=== PATIENT | male | born 1940 | race Caucasian/White ===

== ENCOUNTER 2018-07-06 10:33 | Inpatient (IN) ==
--- NOTE | 2018-07-06 11:04 | Emergency Department Note ---
Disposition Clinical Impression: Afib, Chest pain, Metastatic melanoma, History of DVT (deep vein thrombosis), Anemia, Elevated INR, Frail elderly Disposition: Admitted As Inpatient General Adult HPI - General Chief complaint: ED Chest Pain Stated complaint: Chest pain/GT Time Seen by Provider: 07/06/18 11:02 Source: patient, family - History of Present Illness HPI Narrative: 77-year-old male with history of atrial fibrillation currently anticoagulated on Coumadin reports emergency department complaining of chest pain. The patient reports back aching and aching in his bones in general. He states he has a history of melanoma and is being treated for that. The patient denies any coughing of blood like swelling or pain or syncope. He has no history of CHF or CAD. There is no history of prior aneurysm. He denies abdominal pain vomiting diarrhea or other acute complaints or concerns. There is no history of bleeding. There is no history of headache or confusion. No falls or injuries. The patient does not have a pacemaker or defibrillator in place. Pain Scale: 10 - Related Data Home Medications Medication Instructions Recorded Confirmed Allopurinol [Zyloprim 300 MG] 300 mg PO DAILY 05/04/18 07/05/18 Atorvastatin [Lipitor] 20 mg PO DAILY 05/04/18 07/05/18 Budesonide/Formoterol 80/4.5 2 puff IH BID PRN 05/04/18 07/05/18 [Symbicort 80/4.5] Digoxin [Lanoxin] 0.125 mg PO DAILY 05/04/18 07/05/18 Diltiazem CD (24hr) [Cardizem CD] 240 mg PO DAILY 05/04/18 07/05/18 Finasteride [Proscar] 5 mg PO DAILY 05/04/18 07/05/18 Ipratropium/Albuterol Neb [Duoneb] 3 ml IH QID PRN 05/04/18 07/05/18 Multivit-Min/FA/Lycopen/Lutein 1 tab PO DAILY 05/04/18 07/05/18 [Centrum Silver Tablet] Omeprazole [PriLOSEC] 20 mg PO DAILY 05/04/18 07/05/18 Saw [place] 160 mg PO BID 05/04/18 07/05/18 Tamsulosin [Flomax] 0.4 mg PO DAILY 05/04/18 07/05/18 Warfarin [Coumadin] 6 mg PO AD 05/04/18 07/05/18 Ferrous Sulfate [High Potency Iron] 27 mg PO DAILY 05/05/18 07/05/18 Ketoconazole 2% CRM [Nizoral Cream] 1 appl TP BID PRN 05/05/18 07/05/18 Metoprolol Tartrate 50 mg PO BID 05/05/18 07/05/18 Potassium Chloride [K-Tab ER] 20 meq PO Q48H 05/05/18 07/05/18 Previous Rx's Medication Instructions Recorded Mirtazapine [Remeron] 15 mg PO HS #30 tablet 06/08/18 Guaifenesin [Mucinex] 600 mg PO BID #20 tab.er.12h 06/14/18 Hydrocortisone 2.5% CREAM [Cortaid] 1 appl TP BID #1 tube 06/14/18 Allergies Allergy/AdvReac Type Severity Reaction Status Date / Time tape AdvReac Rash Uncoded 07/06/18 10:52 All systems ED: reviewed and negative except as stated. Past Medical History - Past Medical History Medical history: Reports: atrial fibrillation, cancer, DVT, hypertension Psychiatric history: Reports: no psych history - Social History Smoking Status: Former smoker Smokeless Tobacco Status: No Alcohol use: Reports: heavy, recent Drug use: Reports: none Physical Exam - General Limitations: no limitations General appearance: alert, in no apparent distress - Head Head exam: atraumatic, normocephalic, normal inspection - Eye Eye exam: Present: normal appearance, PERRL, EOMI - ENT ENT exam: normal exam, normal oropharynx, mucous membranes moist - Neck Neck exam: Present: normal inspection, full ROM, trachea midline - Chest Chest inspection: Present: normal inspection. Absent: symmetric chest wall rise - Respiratory Respiratory exam: Present: normal lung sounds bilaterally, respiratory distress. Absent: prolonged expiratory phase - Cardiovascular Cardiovascular exam: Present: tachycardia, irregular rhythm - Abdominal Exam Abdominal exam: Present: soft, Non-Tender, normal bowel sounds. Absent: tenderness, distention, guarding, rebound, rigidity - Extremities Exam Extremities exam: Present: normal inspection, full ROM, normal capillary refill. Absent: tenderness, pedal edema, joint swelling, calf tenderness - Expanded Lower Extremity Exam Neurovascular/Tendon exam: Present: normal capillary refill. Absent: motor deficit, sensory deficit, tendon deficit, extremity cold to touch, pallor - Back Exam Back exam: Present: normal inspection, full ROM. Absent: tenderness, CVA tenderness (R), CVA tenderness (L), vertebral tenderness - Neurological Exam Neurological exam: Present: alert, oriented X3, CN II-XII intact. Absent: motor sensory deficit - Psychiatric Psychiatric exam: Present: normal affect, normal mood - Skin Skin exam: Present: warm, dry, intact, normal color Course Vital Signs Temperature 98.5 F 07/06/18 10:54 Pulse Rate 127 07/06/18 10:54 Respiratory Rate 22 07/06/18 10:54 Blood Pressure 123/64 07/06/18 10:54 O2 Sat by Pulse Oximetry 99 07/06/18 10:54 Temperature 98.5 F 07/06/18 10:54 Pulse Rate 121 07/06/18 12:21 Respiratory Rate 18 07/06/18 13:49 Blood Pressure 150/82 07/06/18 13:49 O2 Sat by Pulse Oximetry 98 07/06/18 12:21 Oxygen Delivery Oxygen Delivery Nasal Cannula Medical Decision Making - [facility] Narrative Medical decision making narrative: The patient presented to emergency department describing chest discomfort and general aching, he has known history of metastatic melanoma, he is anticoagulated secondary to chronic atrial fibrillation. In emergency department his EKG showed atrial fibrillation with RVR. Troponin negative. Chest x-ray shows worsening metastatic disease. INR 2.3. IV fluid and Cardizem bolus given, the patient's heart rate did come down into the 104 range but then bounced back into the 130s, a Cardizem drip was ordered. Based on the patient's persistent tachycardia, known tachydysrhythmia/AF, multiple comorbidities including metastatic melanoma with worsening chest disease and complaints of pain, I thought it would be appropriate to admit the patient hospital. He patient was given fentanyl emergency department. He appears to be stable. White blood cell count slightly elevated with tachycardia, no clear source for infection noted, as a precaution lactic acid and blood cultures were ordered. He is agreeable to admission. I discussed the case with the hospitalist on-call who has accepted the patient to their care. - Lab Data Lab results reviewed: Yes I reviewed the patient's lab results. Result diagrams: 07/06/18 11:06 07/06/18 11:06 Lab Results 07/06/18 07/06/18 07/06/18 Range/Units 11:06 11:06 11:06 WBC 12.3 H D (4.3-11.1) K/mcL RBC 3.20 L (4.19-5.50) M/mcL Hgb 9.5 L (12.9-16.9) g/dL Hct 29.4 L (37.5-50.1) % MCV 91.9 (83.0-100.0) fL MCH 29.7 (28.0-33.3) pg MCHC 32.3 (31.6-35.5) g/dL RDW 14.7 H (11.5-14.5) % Plt Count 304 (140-400) K/mcL MPV 9.7 (9.4-12.4) fL Immature Gran % 0.7 (0-4) % Seg Neutrophils % 70.9 % Lymphocytes % 16.9 % Monocytes % 9.1 % Eosinophils % 2.0 % Basophils % 0.4 % Neutrophils # 8.7 (1.6-8.9) K/mcL Lymphocytes # 2.1 (0.6-4.6) K/mcL Monocytes # 1.1 (0.0-1.3) K/mcL Eosinophils # 0.3 (0.0-0.6) K/mcL Basophils # 0.1 (0.0-0.2) K/mcL Nucleated RBCs/100 WBC 0.2 H (0) /100 WBC PT 25.6 H (9.4-12.1) Seconds INR 2.3 APTT 34.6 (26.0-36.0) Seconds Sodium 138 (136-145) mEq/L Potassium 4.6 (3.5-5.1) mEq/L Chloride 103 (98-107) mEq/L Carbon Dioxide 27 (23-29) mEq/L BUN 43 H (8-23) mg/dL Creatinine 0.77 (0.70-1.30) mg/dL Est GFR ( Amer) > 60 (> 60) Est GFR (Non-Af Amer) > 60 (> 60) BUN/Creatinine Ratio 56 H (6-26) Glucose 116 H (70-105) mg/dL Calculated Osmolality 298 (280-300) Calcium 8.8 (8.6-10.3) mg/dL Total Bilirubin 0.6 (0.3-1.0) mg/dL Direct Bilirubin 0.2 (0.0-0.2) mg/dL Indirect Bilirubin 0.4 (0.0-1.2) mg/dL AST 22 (13-39) Units/L ALT 17 (7-52) Units/L Alkaline Phosphatase 153 H (34-104) Units/L Troponin I < 0.03 (< 0.04) ng/mL B-Natriuretic Peptide (Less than 100) pg/mL Serum Total Protein 5.9 L (6.4-8.9) g/dL Albumin 3.3 L (3.5-5.7) g/dL Globulin 2.6 (2.4-3.5) g/dL Albumin/Globulin Ratio 1.3 (1.1-2.2) Lipase 12 (11-82) Units/L 05/15/19 Range/Units 11:06 WBC (4.3-11.1) K/mcL RBC (4.19-5.50) M/mcL Hgb (12.9-16.9) g/dL Hct (37.5-50.1) % MCV (83.0-100.0) fL MCH (28.0-33.3) pg MCHC (31.6-35.5) g/dL RDW (11.5-14.5) % Plt Count (140-400) K/mcL MPV (9.4-12.4) fL Immature Gran % (0-4) % Seg Neutrophils % % Lymphocytes % % Monocytes % % Eosinophils % % Basophils % % Neutrophils # (1.6-8.9) K/mcL Lymphocytes # (0.6-4.6) K/mcL Monocytes # (0.0-1.3) K/mcL Eosinophils # (0.0-0.6) K/mcL Basophils # (0.0-0.2) K/mcL Nucleated RBCs/100 WBC (0) /100 WBC PT (9.4-12.1) Seconds INR APTT (26.0-36.0) Seconds Sodium (136-145) mEq/L Potassium (3.5-5.1) mEq/L Chloride (98-107) mEq/L Carbon Dioxide (23-29) mEq/L BUN (8-23) mg/dL Creatinine (0.70-1.30) mg/dL Est GFR ( Amer) (> 60) Est GFR (Non-Af Amer) (> 60) BUN/Creatinine Ratio (6-26) Glucose (70-105) mg/dL Calculated Osmolality (280-300) Calcium (8.6-10.3) mg/dL Total Bilirubin (0.3-1.0) mg/dL Direct Bilirubin (0.0-0.2) mg/dL Indirect Bilirubin (0.0-1.2) mg/dL AST (13-39) Units/L ALT (7-52) Units/L Alkaline Phosphatase (34-104) Units/L Troponin I (< 0.04) ng/mL B-Natriuretic Peptide 158 H (Less than 100) pg/mL Serum Total Protein (6.4-8.9) g/dL Albumin (3.5-5.7) g/dL Globulin (2.4-3.5) g/dL Albumin/Globulin Ratio (1.1-2.2) Lipase (11-82) Units/L - Radiology Data Radiology results reviewed: Yes I reviewed the patient's radiology results.
[2018-07-06 11:31] LABS: Basophils # 0.1 K/mcL (0.0-0.2); Basophils % 0.4 %; Eosinophils # 0.3 K/mcL (0.0-0.6); Hematocrit 29.4 % (37.5-50.1); Hemoglobin 9.5 g/dL (12.9-16.9); Immature Granulocytes % 0.7 % (0-4); Lymphocytes # 2.1 K/mcL (0.6-4.6); Lymphocytes % 16.9 %; Mean Corpuscular HGB Conc 32.3 g/dL (31.6-35.5); Mean Corpuscular Hemoglobin 29.7 pg (28.0-33.3); Mean Corpuscular Volume 91.9 fL (83.0-100.0); Mean Platelet Volume 9.7 fL (9.4-12.4); Monocytes # 1.1 K/mcL (0.0-1.3); Monocytes % 9.1 %; Neutrophils # 8.7 K/mcL (1.6-8.9); Nucleated Red Blood Cells 0.2 /100 WBC (0); Platelet Count 304 K/mcL (140-400); Red Cell Distribution Width 14.7 % (11.5-14.5); Segmented Neutrophils % 70.9 %
[2018-07-06] MEDS ORDERED: *HR* FentaNYL (PF) 100 MCG/2 ML VIAL IVP ONE (11:35)
[2018-07-06 11:38] LABS: INR 2.3; Prothrombin Time 25.6 Seconds (9.4-12.1)
[2018-07-06 11:40] LABS: Activated Partial Thrombo Time 34.6 Seconds (26.0-36.0)
[2018-07-06 11:44] LABS: Alanine Aminotransferase 17 Units/L (7-52); Albumin 3.3 g/dL (3.5-5.7); Albumin/Globulin Ratio 1.3 (1.1-2.2); Alkaline Phosphatase 153 Units/L (34-104); Aspartate Amino Transferase 22 Units/L (13-39); BUN/Creatinine Ratio 56 (6-26); Bilirubin,Direct 0.2 mg/dL (0.0-0.2); Bilirubin,Indirect 0.4 mg/dL (0.0-1.2); Bilirubin,Total 0.6 mg/dL (0.3-1.0); Blood Urea Nitrogen 43 mg/dL (8-23); Calcium 8.8 mg/dL (8.6-10.3); Carbon Dioxide 27 mEq/L (23-29); Chloride 103 mEq/L (98-107); Globulin 2.6 g/dL (2.4-3.5); Glucose 116 mg/dL (70-105); Lipase 12 Units/L (11-82); Osmolality,Calculated 298 (280-300); Potassium 4.6 mEq/L (3.5-5.1); Sodium 138 mEq/L (136-145); Total Protein 5.9 g/dL (6.4-8.9); Troponin I < 0.03 ng/mL (< 0.04); eGFR For Non-African Americans > 60 (> 60)
--- NOTE | 2018-07-06 13:01 | Electrocardiograph Report ---
Mobile Cursogram Test Date: 2018-07-06 Pat Name: Brad Drake Department: [id number] Room: Gender: M Chief Steward/Stewardess: : 1940 Requested By: Cooper Pineda Order Number: [id number] Reading MD: Tyler Rowley Measurements Intervals [place] Rate: 149 P: [place]: QRS: 72 QRSD: 82 T: 65 QT: 282 QTc: 444 Interpretive Statements Atrial fibrillation with rapid V-rate Probable anteroseptal infarct, old ST depression, probably rate related Electronically Signed On 07-06-2018 13:00:40 EDT by Tyler Rowley
[2018-07-06] MEDS ORDERED: Aspirin 325 MG TABLET PO ONE (13:05)
[2018-07-06] MEDS ORDERED: Naloxone 0.4 MG/ML INJ IVP PRN (15:25)
[2018-07-06 15:42] LABS: C-Reactive Protein 48 mg/L (Less than 10)
--- NOTE | 2018-07-06 16:01 | Oncology Inp Consult Note ---
<Concha Michel S - Last Filed: 07/06/18 17:34> Date of Encounter: 07/06/18 - Data of Consult Requesting Physician: Janessa Mims Primary Care Provider: Shaila Ayon MD Medications and Allergies RX: Allopurinol [Zyloprim 300 MG] 300 mg PO DAILY 05/04/18 [History] RX: Atorvastatin [Lipitor] 20 mg PO DAILY 05/04/18 [History] RX: Budesonide/Formoterol 80/4.5 [Symbicort 80/4.5] 2 puff IH BID PRN 05/04/18 [History] RX: Digoxin [Lanoxin] 0.125 mg PO DAILY 05/04/18 [History] RX: Diltiazem CD (24hr) [Cardizem CD] 240 mg PO DAILY 05/04/18 [History] RX: Finasteride [Proscar] 5 mg PO DAILY 05/04/18 [History] RX: Ipratropium/Albuterol Neb [Duoneb] 3 ml IH Q6H 05/04/18 [History] RX: Multivit-Min/FA/Lycopen/Lutein [Centrum Silver Tablet] 1 tab PO DAILY 05/04/18 [History] RX: Omeprazole [PriLOSEC] 20 mg PO DAILY 05/04/18 [History] RX: Saw [place] 160 mg PO BID 05/04/18 [History] RX: Tamsulosin [Flomax] 0.4 mg PO DAILY 05/04/18 [History] RX: Warfarin [Coumadin] 6 mg PO DAILY 05/04/18 [History] RX: Ferrous Sulfate [High Potency Iron] 27 mg PO DAILY 05/05/18 [History] RX: Metoprolol Tartrate 50 mg PO BID 05/05/18 [History] RX: Potassium Chloride [K-Tab ER] 20 meq PO Q48H 05/05/18 [History] Mirtazapine [Remeron] 15 mg PO HS #30 tablet 06/08/18 [Rx] Albuterol Sulfate [Proair Hfa] 1 puff IH Q6H PRN 07/06/18 [History] Allergy/AdvReac Type Severity Reaction Status Date / Time tape AdvReac Rash Uncoded 07/06/18 10:52 Consult Discharge Plan - Plan Referrals: Shaila Ayon MD [Primary Care Provider] - Inpatient Charges Provider: Dr. Alva Michel Consult - Inpatient: [id number] - Attending Attestation I examined this patient and my medical decision-making was reviewed with the Advanced Practice Nurse. I agree with the documented findings, disposition and treatment plan as described except to the extent set forth below. 1. Metastatic melanoma with widespread metastasis including lung metastasis and bone and liver lesions. BRAF [id number] positive He is on combination Ipilumumab and Nivolumab. Cycle 3 of 4 yesterday on 2. He has progressive fatigue and shortness of breath palpitation. During admission he was found to be in atrial fibrillation with RVR. Started on Cardizem drip. He was given aspirin 325 mg by mouth once. He is not on anticoagulation We will proceed with CT angiogram chest and CT abdomen and pelvis with IV contrast which is scheduled to be done in a week. There is evidence of disease progression would switch to BRAF directed therapy <Rosalia Blake - Last Filed: 07/06/18 20:32> Date of Encounter: 07/06/18 Time of Encounter: 14:35 Assessment and Plan (1) Metastatic melanoma Status: Acute Assessment and plan: Received C3 Ipilumumab (Yervoy) and Nivolumab (Opdivo) 07/05/18. TSH/T4 and cortisol WNL. CXR: increased size of pulmonary nodules. Consider CT chest with contrast. Patient was due for restaging scans in 1 week. Plan: Hold treatment. CTA chest/ CT abdomen and pelvis with IV contrast. If disease progression confirmed, will consider treatment change to BRAF inhibitor. (2) Afib Status: Acute Assessment and plan: Atrial fibrillation with RVR Received Cardizem 20 mg bolus in ED. HR 100-120s per documented vital signs. Chronic afib. Home medication: Coumadin PO daily. Patient noted to have dark black stool this evening. Hold evening dose of Coumadin. Plan: Continue Cardizem drip per primary team. Hold Coumadin due to black stool 07/06/18. Collect fecal occult stool sample Qualifiers: Atrial fibrillation type: chronic Qualified Code(s): I48.2 - Chronic atrial fibrillation (3) Acute respiratory failure with hypoxia Status: Acute Assessment and plan: Acute onset of dyspnea in the presence of metastatic cancer. Requiring oxygen supplementation. Plan: CTA of the chest to rule out PE - Data of Consult Requesting Physician: Janessa Mims Primary Care Provider: Shaila Ayon MD - Consult Narrative Reason for consult: metastatic melanoma History of present illness: Brad, 77-year-old male with metastatic melanoma, presented to the emergency room today for chest pain/chest pressure shortness of breath, and fatigue. He notes that he was becoming more short of breath and worsening chest pressure that was unrelieved by rest. He is short of breath during conversation. He is now on 3 L oxygen per nasal cannula, but does not typically wear oxygen. He has chronic atrial fibrillation and was found to have afib RVR in the ED. Received Cardizem bolus and will begin a Cardizem drip. Brad notes that he has been out of his Cardizem and "one other medication" for the past week. Upon evening rounds, patient also noted to have a black stool this afternoon. He is currently taking Coumadin daily due to his history of chronic atrial fibrillation. Last treatment: He received cycle 3 of nivolumab (Opdivo) and ipilumumab (Yervoy) yesterday, 07/05/18. Diagnosis: Metastatic melanoma (04/2018). Biopsy was done on 05/09/2018. This showed metastatic melanoma By immunohistochemical staining the tumor expresses HMB45, S100 and SOX10. The tumor cells are negative for TTF-1, Napsin-A, CK20, CK5/6, CK7 and AE1/AE3 Treatment history: C3 07/05/18: Ipilumumab (Yervoy) and nivolumab (Opdivo) Previous oncology history: 1. Melanoma 2009 2. Stage I lung cancer 2012. Treated at [place] by Dr. 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 Lives in [facility] with . Smoking history: Smoked 1 ppd x 35 years. Quit 25 years ago. Alcohol use: Chronic alcohol abuse, reduced intake since hospitalization at diagnosis. Past Med Surg Social Fam HX - Past Medical History Medical history: atrial fibrillation, cancer, DVT, hypertension Additional medical history: partial lung removal, melanoma Psychiatric history: no psych history - Social History Smoking Status: Former smoker Smokeless Tobacco Status: No Alcohol use: heavy, recent Drug use: none - Family History Father Living Status: Hx Family Respiratory Disorders: Yes (COPD) Hx Family Cancer: Yes Hx Family Medical Disorders: Yes Constitutional: Present: fatigue Cardiovascular: Present: chest pain, chest pain at rest, dyspnea, dyspnea on exertion, irregular heart rhythm, rapid heart rate. Absent: leg edema, palpitations Respiratory: Present: dyspnea, dyspnea on exertion. Absent: wheezing, chest congestion Gastrointestinal: Absent: abdominal pain, constipation, diarrhea, nausea, vomiting Neurological: Present: weakness Endocrine: Present: fatigue Oncology - Exam - Additional findings Additional findings: General: Alert and oriented, well appearing. Mental Status: Affect appropriate for circumstances Skin: No rashes or petechiae. Lungs: SOB at rest Cardiovascular: Irregular rhythm. Tachycardic. . Abdomen: Soft, nontender. Extremities: No edema. No calf swelling or tenderness. No joint deformity. Neurologic: Alert, cranial nerves II-XII intact; no focal weakness or sensory abnormalities. Oncology Inpatient Results Labs: Laboratory Results - last 24 hr 07/06/18 07/06/18 07/06/18 11:06 11:06 11:06 WBC 12.3 H D RBC 3.20 L Hgb 9.5 L Hct 29.4 L MCV 91.9 MCH 29.7 MCHC 32.3 RDW 14.7 H Plt Count 304 MPV 9.7 Immature Gran % 0.7 Seg Neutrophils % 70.9 Lymphocytes % 16.9 Monocytes % 9.1 Eosinophils % 2.0 Basophils % 0.4 Neutrophils # 8.7 Lymphocytes # 2.1 Monocytes # 1.1 Eosinophils # 0.3 Basophils # 0.1 Nucleated RBCs/100 WBC 0.2 H PT 25.6 H INR 2.3 APTT 34.6 Sodium 138 Potassium 4.6 Chloride 103 Carbon Dioxide 27 BUN 43 H Creatinine 0.77 Est GFR ( Amer) > 60 Est GFR (Non-Af Amer) > 60 BUN/Creatinine Ratio 56 H Glucose 116 H Calculated Osmolality 298 Lactic Acid Calcium 8.8 Total Bilirubin 0.6 Direct Bilirubin 0.2 Indirect Bilirubin 0.4 AST 22 ALT 17 Alkaline Phosphatase 153 H Troponin I < 0.03 C-Reactive Protein 48 H B-Natriuretic Peptide Serum Total Protein 5.9 L Albumin 3.3 L Globulin 2.6 Albumin/Globulin Ratio 1.3 Lipase 12 07/06/18 07/06/18 11:06 14:30 WBC RBC Hgb Hct MCV MCH MCHC RDW Plt Count MPV Immature Gran % Seg Neutrophils % Lymphocytes % Monocytes % Eosinophils % Basophils % Neutrophils # Lymphocytes # Monocytes # Eosinophils # Basophils # Nucleated RBCs/100 WBC PT INR APTT Sodium Potassium Chloride Carbon Dioxide BUN Creatinine Est GFR ( Amer) Est GFR (Non-Af Amer) BUN/Creatinine Ratio Glucose Calculated Osmolality Lactic Acid 0.8 Calcium Total Bilirubin Direct Bilirubin Indirect Bilirubin AST ALT Alkaline Phosphatase Troponin I C-Reactive Protein B-Natriuretic Peptide 158 H Serum Total Protein Albumin Globulin Albumin/Globulin Ratio Lipase Inpatient Charges Provider: Dr. Alva Michel
[2018-07-06] MEDS ORDERED: Isovue-370 500 ML BOTTLE IVP ONE ×2 (17:32→17:33)
--- NOTE | 2018-07-06 17:35 | Internal Med History&Physical ---
Date of Encounter: 07/06/18 Time of Encounter: 14:00 Internal Medicine - H&P: HPI Chief complaint: SOB Admitted From: Home Plans for Post Hospital Care: Home History of present illness: Mr. Drake is a 77 year old male with metastatic melanoma and stage I lung cancer in 2012, PAF on coumadin presented to the emergency department with complaint of chest pressure and shortness of breath. As per patient his symptoms started about a month ago and they have progressively worsened to the point that he cannot catch his breath even at rest. He denies cough, hemoptysis, PND or orthopnea however does complain of chest pressure that accompanies the shortness of breath. Chest pressure is 4 out of 10 on severity and is nonradiating. He denies calf tenderness, calf swelling or discoloration. He denies history of prolonged immobilization or previous DVTs or PEs. He denies palpitations, sick contacts, recent antibiotic use. He follows up with [facility] and received chemotherapy yesterday without any adverse r eactions. He is a previous smoker with [id number] history quit 25 years ago. Denies home oxygen use, has never been intubated. He reports compliance to his medications especially his Coumadin. On the emergency department he was found to have increased pulmonary nodules concerning for worsening opacity disease on chest x-ray. He was endorsed for further management of his acute hypoxic respiratory failure. Past Med Surg Social Fam HX - Past Medical History Medical history: atrial fibrillation, cancer, DVT, hypertension Additional medical history: partial lung removal, melanoma Psychiatric history: no psych history - Past Surgical History Additional surgical history: partial lung removal - Social History Smoking Status: Former smoker Smokeless Tobacco Status: No Alcohol use: heavy, recent Drug use: none - Family History Father Living Status: Hx Family Respiratory Disorders: Yes (COPD) Hx Family Cancer: Yes Hx Family Medical Disorders: Yes Internal Medicine - H&P: Meds Allopurinol [Zyloprim 300 MG] 300 mg PO DAILY 05/04/18 [History] Atorvastatin [Lipitor] 20 mg PO DAILY 05/04/18 [History] Budesonide/Formoterol 80/4.5 [Symbicort 80/4.5] 2 puff IH BID PRN 05/04/18 [History] Digoxin [Lanoxin] 0.125 mg PO DAILY 05/04/18 [History] Diltiazem CD (24hr) [Cardizem CD] 240 mg PO DAILY 05/04/18 [History] Finasteride [Proscar] 5 mg PO DAILY 05/04/18 [History] Ipratropium/Albuterol Neb [Duoneb] 3 ml IH QID PRN 05/04/18 [History] Multivit-Min/FA/Lycopen/Lutein [Centrum Silver Tablet] 1 tab PO DAILY 05/04/18 [History] Omeprazole [PriLOSEC] 20 mg PO DAILY 05/04/18 [History] Saw [place] 320 mg PO DAILY 05/04/18 [History] Tamsulosin [Flomax] 0.4 mg PO DAILY 05/04/18 [History] Warfarin [Coumadin] 6 mg PO AD 05/04/18 [History] Ferrous Sulfate [High Potency Iron] 27 mg PO DAILY 05/05/18 [History] Metoprolol Tartrate 50 mg PO BID 05/05/18 [History] Potassium Chloride [K-Tab ER] 20 meq PO Q48H 05/05/18 [History] Mirtazapine [Remeron] 15 mg PO HS #30 tablet 06/08/18 [Rx] Albuterol Sulfate [Proair Hfa] 1 puff IH Q6H PRN 07/06/18 [History] Allergy/AdvReac Type Severity Reaction Status Date / Time tape AdvReac Rash Uncoded 07/06/18 10:52 All Systems PM: A 10-system review of systems was performed and is negative for pertinent findings except as documented above in the HPI. - Constitutional Vitals: Temp Pulse Resp BP Pulse Ox 98.1 F 107 16 132/83 99 07/06/18 14:39 07/06/18 14:39 07/06/18 14:39 07/06/18 14:39 07/06/18 14:39 Exam: General: Patient is alert, oriented, mild distress, speaks in 4 word sentences. Head: atraumatic, normocephalic, Eye: normal appearance, PERRL, no scleral icterus, no conjunctival injection ENT: mucous membranes moist, normal external ear exam Neck: normal inspection, trachea midline, full ROM, no carotid bruits Chest: normal inspection, symmetric chest rise Respiratory: Tachypneic, decreased breath sounds bilaterally, crackles in the posterior lung tamayo bilaterally, no wheezing Cardiovascular: Irregularly irregular s1 and s2 No clicks, rubs, gallops, or murmors. Abdomen: Bowel sounds present normoactive x-4 quadrants. Abdomen is soft, nondistended. no Epigastric tenderness. No guarding or rebound. No organomegaly noted, obese musculoskeletal: Spontaneously moving all extremities. no edema, no calf tenderness Skin: warm, dry, intact. Neuro: Alert and oriented x4. No focal deficit Psych: Patient's affect is normal Internal Med - H&P Results - Labs CBC & Chem 7: 07/06/18 11:06 07/06/18 11:06 Labs: Short CBC 07/06/18 Range/Units 11:06 WBC 12.3 H D (4.3-11.1) K/mcL Hgb 9.5 L (12.9-16.9) g/dL Hct 29.4 L (37.5-50.1) % Plt Count 304 (140-400) K/mcL Neutrophils # 8.7 (1.6-8.9) K/mcL BMP 07/06/18 11:06 Sodium 138 Potassium 4.6 Chloride 103 Carbon Dioxide 27 BUN 43 H Creatinine 0.77 Glucose 116 H Calcium 8.8 Cardiac Enzymes 07/06/18 Range/Units 11:06 Troponin I < 0.03 (< 0.04) ng/mL Liver Function 07/06/18 Range/Units 11:06 Total Bilirubin 0.6 (0.3-1.0) mg/dL Direct Bilirubin 0.2 (0.0-0.2) mg/dL AST 22 (13-39) Units/L ALT 17 (7-52) Units/L Alkaline Phosphatase 153 H (34-104) Units/L Albumin 3.3 L (3.5-5.7) g/dL - EKG Data -: EKG Interpreted by Myself (A. fib with RVR, old anteroseptal infarct, lateral ST depressions) - EKG Data Prior EKG available for review: yes When compared to previous EKG: there is no significant change - Impressions ITS Impressions Chest X-Ray 07/06/18 11:03 IMPRESSION: Increased pulmonary nodules concerning for worsening metastatic disease. D/ / 07/06/2018 11:40:00 Jesus Salinas MD / raz Interpreting Provider: Jesus Salinas MD - Assessment and Plan (1) Acute respiratory failure with hypoxia Current Visit: Yes Status: Acute Assessment and plan: patient has acute respiratory failure requiring oxygen ( not on home oxyge at home) most likely secondary to increased mets to the lungs vs CAP has mild leukocytosis - will start him on empiric Abx as he recently recieved chemotherapy CT chest with IV contrast ordered urine antigens xopenex and ipratropium continue oxygen via nasal cannula to keep sats >92% if respiratory distress consider Bipap (2) Atrial fibrillation with RVR Current Visit: Yes Status: Acute Assessment and plan: was started on cardizem drip in the ED telemetry TSH/T4 and cortisol WNL. continue with home metoprolol and digoxin limited TTE ordered continue with coumadin follow INR in AM - INR is therapeutic (3) Chest pain Current Visit: Yes Status: Acute Assessment and plan: Atypical in nature will rule out ACS most likely secondary to rapid Afib and recent increase in mets initial troponin negative continue Q6H along with EKG was given ASA 325 mg in the ED continue home dose BB, lipitor lipid panel in AM limited Echo to evaluate EF Qualifiers: Chest pain type: other chest pain Qualified Code(s): R07.89 - Other chest pain; R07.8 - Other chest pain (4) Metastatic melanoma Current Visit: Yes Status: Acute Assessment and plan: oncology on board Received C3 Ipilumumab (Yervoy) and Nivolumab (Opdivo) 07/05/18. CXR with worsening mets to the lung will get CT chest with IV contrast adn CT A/p with IV contrast as it was to be done as OP. (5) DVT prophylaxis Current Visit: No Status: Acute Assessment and plan: on coumadin with therapeutic INR - Time Spent With Patient Total time spent is greater than 50% in coordination of care (as documented) at patient's floor/unit and/or counseling patient:
[2018-07-06] MEDS ORDERED: Budesonide/Formoterol 80/4.5 MDI IH PRN (17:38)
[2018-07-06] MEDS ORDERED: cefTRIAXone 2,000 MG in Water for inj. (sterile) 20 ML 20 ML IVP SCH (18:00)
[2018-07-06] MEDS: Folic Acid 1 MG TABLET PO SCH (21:56)
[2018-07-06] MEDS: Thiamine (B-1) 100 MG TABLET PO SCH (21:56)
[2018-07-06] MEDS: Mirtazapine 15 MG TABLET PO SCH (21:56)
[2018-07-06] MEDS: Doxycycline 100 MG in 0.9 % Sodium Chloride Mini Bag 100 ML IVPB SCH (21:57)
[2018-07-06] MEDS: Ipratropium Neb 0.5 MG NEBULIZER IH SCH ×2 (23:10→23:29)
[2018-07-06] MEDS ORDERED: Levalbuterol Neb 1.25 MG/3 ML ONE (23:28)
[2018-07-06] MEDS ORDERED: Ipratropium Neb 0.5 MG NEBULIZER ONE (23:28)
[2018-07-06] MEDS: Levalbuterol Neb 1.25 MG/3 ML IH SCH (23:29)
[2018-07-07 01:47] LABS: Hematocrit 24.2 % (37.5-50.1); Mean Corpuscular HGB Conc 32.2 g/dL (31.6-35.5); Mean Corpuscular Hemoglobin 29.9 pg (28.0-33.3); Mean Corpuscular Volume 92.7 fL (83.0-100.0); Mean Platelet Volume 10.1 fL (9.4-12.4); Platelet Count 259 K/mcL (140-400); Red Blood Count 2.61 M/mcL (4.19-5.50); Red Cell Distribution Width 15.2 % (11.5-14.5)
[2018-07-07 01:51] LABS: Hemoglobin 7.8 g/dL (12.9-16.9)
[2018-07-07 02:01] LABS: INR 2.9; Prothrombin Time 32.9 Seconds (9.4-12.1)
[2018-07-07 02:07] LABS: BUN/Creatinine Ratio 71 (6-26); Blood Urea Nitrogen 50 mg/dL (8-23); Carbon Dioxide 27 mEq/L (23-29); Chloride 105 mEq/L (98-107); Chol/HDL Ratio 3.5 (0-4.9); Cholesterol 94 mg/dL (< 200); Glucose 129 mg/dL (70-105); HDL Cholesterol 27 mg/dL (40-59); LDL Cholesterol,Calculated 44 mg/dL (0-99); Magnesium 1.6 mg/dL (1.6-2.6); Osmolality,Calculated 305 (280-300); Potassium 4.1 mEq/L (3.5-5.1); Sodium 140 mEq/L (136-145); Triglycerides 115 mg/dL (< 150); eGFR For Non-African Americans > 60 (> 60)
[2018-07-07 02:19] LABS: Thyroid Stimulating Hormone 1.505 mcIU/mL (0.340-5.600)
[2018-07-07] MEDS ORDERED: Levalbuterol Neb 1.25 MG/3 ML ONE ×2 (03:49→07:25)
[2018-07-07] MEDS ORDERED: Ipratropium Neb 0.5 MG NEBULIZER ONE ×2 (03:50→07:24)
[2018-07-07] MEDS: Ipratropium Neb 0.5 MG NEBULIZER IH SCH ×6 (04:16→23:18)
[2018-07-07] MEDS: Levalbuterol Neb 1.25 MG/3 ML IH SCH ×4 (04:16→19:55)
[2018-07-07] MEDS: Doxycycline 100 MG in 0.9 % Sodium Chloride Mini Bag 100 ML IVPB SCH (06:23)
[2018-07-07 06:57] LABS: Hematocrit 20.7 % (37.5-50.1); Hemoglobin 6.7 g/dL (12.9-16.9)
[2018-07-07 08:35] LABS: % Iron Saturation 13 % (20-55); Iron 32 mcg/dL (65-175); Transferrin 177 mg/dL (203-362)
[2018-07-07] MEDS: *HR* Digoxin 0.125 MG TABLET PO SCH (08:52)
[2018-07-07] MEDS: Folic Acid 1 MG TABLET PO SCH (08:52)
[2018-07-07] MEDS: Multivit/Ca/Min/Fe/FA 1 TAB TABLET PO SCH (08:52)
[2018-07-07] MEDS: Finasteride 5 MG TABLET PO SCH (08:52)
[2018-07-07] MEDS: Thiamine (B-1) 100 MG TABLET PO SCH (08:52)
[2018-07-07 08:53] LABS: Ferritin 46 ng/mL (20-250)
[2018-07-07] MEDS: FERROUS SULFATE 27 MG PO SCH (08:53)
[2018-07-07 08:59] LABS: Folate 15.6 ng/mL (3.0-16.0)
[2018-07-07] MEDS ORDERED: *HR* Warfarin 3 MG TABLET PO SCH (09:00)
[2018-07-07] MEDS ORDERED: Diltiazem CD (24hr) 240 MG CAPSULE PO SCH (09:00)
[2018-07-07] MEDS ORDERED: Ondansetron 4 MG/2 ML VIAL IVP PRN (09:05)
[2018-07-07] MEDS: 0.9 % Sodium Chloride 1,000 ML IVC SCH (09:17)
--- NOTE | 2018-07-07 09:45 | Palliative - Consult Note ---
<Sai Lozada - Last Filed: 07/07/18 11:35> Date of Encounter: 07/07/18 Time of Encounter: 09:43 - Assessment and Plan (1) Goals of care, counseling/discussion Current Visit: Yes Status: Acute Assessment and plan: Discussed pt's current clinical status, history of melanoma, and overall prognosis. Pt reports he knows the CT scans showed worsening disease. Discussed options of pursuing further treatment as offered by oncology team vs a palliative comfort care approach. Pt reports he wishes to continue chemotherapy as offered by oncology. Reports he is aware the medications will not cure his cancer, but hopes it will prolong his life. States he has experienced few side effects from the chemotherapy aside from mild nausea. Reports he is very active at home, including mowing the lawn and other lawn work over multiple acres of land. He lives at home with his who is currently battling lung cancer. He is also supported by his children who live nearby. Also discussed pt's code status. He wishes to remain a full code at this time, including intubation and ventilator support if necessary. States his is his POA in the event he is incapacitated. (2) Encounter for palliative care Current Visit: Yes Status: Acute (3) Metastatic melanoma Current Visit: Yes Status: Acute Assessment and plan: Metastatic disease to lungs, liver, and vertebrae management per oncology (4) Acute respiratory failure with hypoxia Current Visit: Yes Status: Acute Assessment and plan: management per primary Palliative-CN HPI - Data of Consult Patient: new to practice Consult date: 07/07/18 Requesting Physician: Janessa Mims Primary Care Provider: Shaila Ayon MD - Consult Narrative History of present illness: Mr. Drake is a 77 year old male with history of metastatic melanoma and paroxysmal atrial fibrillation on Coumadin who was admitted on 07/05/18 for chest pressure and shortness of breath. Pt reports these symptoms have been occurring for the past month, and worsening progressively throughout this time. Does report some increased cough overnight. Denies any fever or chills. Reports he has undergone 3 of 4 planned cycles of Ipilumumab and Nivolumab with the most recent on 07/05/18. He reports some mild nausea associated with the chemotherapy, however states he wishes to continue treatment. Denies any current pain or nausea. CC: Janessa Mims - Time Spent with Patient Time: Total time spent is greater than 50% in coordination of care (as documented) at patient's floor/unit and/or counseling patient: Past Med Surg Social Fam HX - Past Medical History Medical history: atrial fibrillation, cancer, DVT, hypertension Additional medical history: partial lung removal, melanoma Psychiatric history: no psych history - Past Surgical History Additional surgical history: partial lung removal - Social History Smoking Status: Former smoker Smokeless Tobacco Status: No Alcohol use: heavy, recent Drug use: none - Family History Father Living Status: Hx Family Respiratory Disorders: Yes (COPD) Hx Family Cancer: Yes Hx Family Medical Disorders: Yes Medications and Allergies Allopurinol [Zyloprim 300 MG] 300 mg PO DAILY 05/04/18 [History] Atorvastatin [Lipitor] 20 mg PO DAILY 05/04/18 [History] Budesonide/Formoterol 80/4.5 [Symbicort 80/4.5] 2 puff IH BID PRN 05/04/18 [History] Digoxin [Lanoxin] 0.125 mg PO DAILY 05/04/18 [History] Diltiazem CD (24hr) [Cardizem CD] 240 mg PO DAILY 05/04/18 [History] Finasteride [Proscar] 5 mg PO DAILY 05/04/18 [History] Ipratropium/Albuterol Neb [Duoneb] 3 ml IH Q6H 05/04/18 [History] Multivit-Min/FA/Lycopen/Lutein [Centrum Silver Tablet] 1 tab PO DAILY 05/04/18 [History] Omeprazole [PriLOSEC] 20 mg PO DAILY 05/04/18 [History] Saw [place] 160 mg PO BID 05/04/18 [History] Tamsulosin [Flomax] 0.4 mg PO DAILY 05/04/18 [History] Warfarin [Coumadin] 6 mg PO DAILY 05/04/18 [History] Ferrous Sulfate [High Potency Iron] 27 mg PO DAILY 05/05/18 [History] Metoprolol Tartrate 50 mg PO BID 05/05/18 [History] Potassium Chloride [K-Tab ER] 20 meq PO Q48H 05/05/18 [History] Mirtazapine [Remeron] 15 mg PO HS #30 tablet 06/08/18 [Rx] Albuterol Sulfate [Proair Hfa] 1 puff IH Q6H PRN 07/06/18 [History] Allergy/AdvReac Type Severity Reaction Status Date / Time tape AdvReac Rash Uncoded 07/06/18 10:52 All systems: reviewed and no additional remarkable complaints except as stated - Constitutional Constitutional ROS PAL: no decreased appetite, no anorexia, no chills, no fever(s) - Cardiovascular Cardiovascular ROS: no chest pain at rest, no chest pain with activity, no diaphoresis, no dyspnea on exertion, no edema - Respiratory Respiratory: cough, no dyspnea, no dyspnea on exertion, no wheezing - Gastrointestinal Gastrointestinal: no abdominal pain, no change in bowel habits, no change in stool character - Genitourinary Genitourinary ROS male: no difficulty urinating, no dysuria, no flank pain, no hematuria Palliative Care-Exam - Constitutional Vitals: Temp Pulse Resp BP Pulse Ox 97.6 F 109 20 120/58 98 07/07/18 08:08 07/07/18 08:08 07/07/18 08:08 07/07/18 08:08 07/07/18 08:08 General appearance: Present: average body habitus, cooperative, no acute distress - Head Head Exam: Present: atraumatic, normal inspection, normocephalic - Respiratory Respiratory exam: Present: CTAB. Absent: accessory muscle use, chest wall tenderness, rales, wheezes - Cardiovascular Cardiovascular exam: Present: RRR, +S1, +S2 - GI/Abdominal Exam GI/Abdominal exam: Present: soft. Absent: distended, tenderness - Extremities Exam Extremities exam: Present: normal inspection. Absent: calf tenderness, pedal edema, tenderness - Neurological Exam Neurological exam: Present: alert, oriented X3. Absent: no focal deficits, facial droop, speech deficit - Psychiatric Psychiatric exam: Present: normal affect, normal mood - Skin Skin exam: Present: dry, intact, normal color, warm Internal Medicine - CN: Reslt - Labs CBC & Chem 7: 07/07/18 06:36 07/07/18 00:59 Labs: Short CBC 07/06/18 07/07/18 07/07/18 Range/Units 11:06 00:59 06:36 WBC 12.3 H D 12.6 H (4.3-11.1) K/mcL Hgb 9.5 L 7.8 L D 6.7 L (12.9-16.9) g/dL Hct 29.4 L 24.2 L 20.7 L (37.5-50.1) % Plt Count 304 259 (140-400) K/mcL Neutrophils # 8.7 (1.6-8.9) K/mcL BMP 07/06/18 07/07/18 11:06 00:59 Sodium 138 140 Potassium 4.6 4.1 Chloride 103 105 Carbon Dioxide 27 27 BUN 43 H 50 H Creatinine 0.77 0.70 Glucose 116 H 129 H Calcium 8.8 8.0 L Cardiac Enzymes 07/06/18 07/06/18 07/07/18 Range/Units 11:06 18:34 00:59 Troponin I < 0.03 0.03 0.03 (< 0.04) ng/mL Liver Function 07/06/18 Range/Units 11:06 Total Bilirubin 0.6 (0.3-1.0) mg/dL Direct Bilirubin 0.2 (0.0-0.2) mg/dL AST 22 (13-39) Units/L ALT 17 (7-52) Units/L Alkaline Phosphatase 153 H (34-104) Units/L Albumin 3.3 L (3.5-5.7) g/dL - ABG Interpretation ABG results: PT/INR, D-dimer PT 32.9 Seconds (9.4-12.1) H 07/07/18 00:59 - Impressions Impressions Chest X-Ray 07/06/18 11:03 IMPRESSION: Increased pulmonary nodules concerning for worsening metastatic disease. D/ / 07/06/2018 11:40:00 Jesus Salinas MD / bcarter Interpreting Provider: Jesus Salinas MD Chest CTA 07/06/18 17:32 enlargement causing impression upon the base the bladder again noted. Normal distention of the bladder. Extensive osseous metastatic disease redemonstrated, slightly increased. No acute fracture. IMPRESSION: Chest: No evidence of pulmonary embolism or other acute process. Progression of extensive pulmonary metastatic disease. Mild progression of osseous metastatic disease. Abdomen/pelvis: No acute abnormality. Severe metastatic disease of the liver without significant change. Slightly increased severity osseous metastatic disease. There is nodularity along the mucosal surface of the stomach evident, suspicious for metastatic involvement in this location as well. D/ / Cal Clement MD / Cal Clement MD Interpreting Provider: Cal Clement MD Abdomen/Pelvis CT 07/06/18 17:33 enlargement causing impression upon the base the bladder again noted. Normal distention of the bladder. Extensive osseous metastatic disease redemonstrated, slightly increased. No acute fracture. IMPRESSION: Chest: No evidence of pulmonary embolism or other acute process. Progression of extensive pulmonary metastatic disease. Mild progression of osseous metastatic disease. Abdomen/pelvis: No acute abnormality. Severe metastatic disease of the liver without significant change. Slightly increased severity osseous metastatic disease. There is nodularity along the mucosal surface of the stomach evident, suspicious for metastatic involvement in this location as well. D/ / Cal Clement MD / Cal Clement MD Interpreting Provider: Cal Clement MD Consult Discharge Plan - Plan Referrals: Shaila Ayon MD [Primary Care Provider] - Palliative Quality Palliative Quality: Screen for Code Status: Yes, Screen for Goals of Care: Yes, Screen for Pain: Yes, If Pain Regimen Started, Initiate Bowel Regimen: NA, Screen for Nausea/Vomitting: Yes Code Status: 07/06/18 19:17 FULL [Resuscitation Status: Active] [RES] Routine Comment: Resuscitation Status: Full Code Palliative Scale - Palliative Performance Scale How ambulatory is this patient?: Full What is patient's level of activity and evidence of disease?: Normal activity and work, Some evidence of disease How much self-care assistance does patient require?: Full How much oral intake does the patient have?: Normal What is this patient's level of consciousness?: Full Palliative Performance Score: 90 % <Mony Hook - Last Filed: 07/07/18 15:27> Date of Encounter: 07/07/18 Palliative-CN HPI - Data of Consult Requesting Physician: Janessa Mims Primary Care Provider: Shaila Ayon MD - Consult Narrative History of present illness: Mr. Drake is a 77 year old male CC: Janessa Svetlana Mims - Time Spent with Patient Time: Total time spent is greater than 50% in coordination of care (as documented) at patient's floor/unit and/or counseling patient: Palliative Care-Exam - Constitutional Vitals: Temp Pulse Resp BP Pulse Ox 98.6 F 92 20 122/61 99 07/07/18 15:10 07/07/18 15:10 07/07/18 15:10 07/07/18 15:10 07/07/18 15:10 Internal Medicine - CN: Reslt - Labs CBC & Chem 7: 07/07/18 06:36 07/07/18 00:59 Labs: Short CBC 07/07/18 07/07/18 Range/Units 00:59 06:36 WBC 12.6 H (4.3-11.1) K/mcL Hgb 7.8 L D 6.7 L (12.9-16.9) g/dL Hct 24.2 L 20.7 L (37.5-50.1) % Plt Count 259 (140-400) K/mcL BMP 07/07/18 00:59 Sodium 140 Potassium 4.1 Chloride 105 Carbon Dioxide 27 BUN 50 H Creatinine 0.70 Glucose 129 H Calcium 8.0 L Cardiac Enzymes 07/06/18 07/07/18 Range/Units 18:34 00:59 Troponin I 0.03 0.03 (< 0.04) ng/mL - ABG Interpretation ABG results: PT/INR, D-dimer PT 32.9 Seconds (9.4-12.1) H 07/07/18 00:59 - Impressions Impressions Chest CTA 07/06/18 17:32 enlargement causing impression upon the base the bladder again noted. Normal distention of the bladder. Extensive osseous metastatic disease redemonstrated, slightly increased. No acute fracture. IMPRESSION: Chest: No evidence of pulmonary embolism or other acute process. Progression of extensive pulmonary metastatic disease. Mild progression of osseous metastatic disease. Abdomen/pelvis: No acute abnormality. Severe metastatic disease of the liver without significant change. Slightly increased severity osseous metastatic disease. There is nodularity along the mucosal surface of the stomach evident, suspicious for metastatic involvement in this location as well. D/ / Cal Clement MD / Cal Clement MD Interpreting Provider: Cal Clement MD Abdomen/Pelvis CT 07/06/18 17:33 enlargement causing impression upon the base the bladder again noted. Normal distention of the bladder. Extensive osseous metastatic disease redemonstrated, slightly increased. No acute fracture. IMPRESSION: Chest: No evidence of pulmonary embolism or other acute process. Progression of extensive pulmonary metastatic disease. Mild progression of osseous metastatic disease. Abdomen/pelvis: No acute abnormality. Severe metastatic disease of the liver without significant change. Slightly increased severity osseous metastatic disease. There is nodularity along the mucosal surface of the stomach evident, suspicious for metastatic involvement in this location as well. D/ / Cal Clement MD / Cal Clement MD Interpreting Provider: Cal Clement MD Echocardiogram Limited Views 07/07/18 08:00 Impressions: Limited study to evaluate LVEF LVEF 55%. Moderate concentric left ventricular hypertrophy. Technically sub-optimal due to clinical status.Atrial fibrillation with rapid ventricular response. Left Ventricular Wall Motion: Rest Echo Findings All wall segments showed normal motion. Findings: Study Quality * Technically sub-optimal due to clinical status. ECG Findings * Atrial fibrillation with rapid ventricular response. Left Ventricle * LVEF 55%. * Moderate concentric left ventricular hypertrophy. - Attending Attestation I performed a history and physical examination of the patient and discussed his management with the resident. I reviewed the residents note and agree with the documented findings and plan of care, adding as follow: I examined the patient independently. At the time of exam, patient was AAOx3, complaining of nausea. He presented to the ED due to SOB, weakness and appetite loss. He has history of recurrent metastatic melanoma, currently under treatment. CT showed progression of the disease. Palliative care consult for goals of care discussion. At the time of exam, patient's son Francisco was present. Patient is he primary medical decision maker, and does not have any MPOA. he has 2 sons that are involved in his care, and a , that also has advanced head and neck ca. Per son, patient and are very private about their disease and do not share details with the rest of the family. Discussed current medical condition, traje ctory of illness, overall prognosis and treatment options. Patient appears to have a good understanding of his disease, but remains hopeful for some control with treatment. He wants to live as long as possible, and wants to be intubated, resuscitated and kept alive "in case they find a new cure". Encouraged patient to share information and wishes with his family, as they will need to make decisions if patient is incapacitated. Encouraged to plan for the worst while hoping for he best. Patient is to discuss CT findings with oncology, also planned for EGD to find the source of bleeding. Palliative care will continue to follow for further GOC discussion. Total time spent more than 70 minutes. Palliative Quality Code Status: 07/06/18 19:17 FULL [Resuscitation Status: Active] [RES] Routine Comment: Resuscitation Status: Full Code
--- NOTE | 2018-07-07 11:56 | Internal Med Progress Note ---
Hospitalist Progress Note - Encounter Date of Encounter: 07/07/18 Time of Encounter: 08:00 - Subjective Interval History: Patient was seen and examined at bedside. He had no overnight events, did have an episode of black stools that he reports only happened yesterday evening. He denies hematochezia or hematemesis overnight. Did not have any more black bowel movements since yesterday evening. I discussed the findings of the CAT scan which shows worsening metastatic disease. He denies chest pain or palpitations, shortness of breath has improved minimally. He continues to deny any cough and has had no hemoptysis. Goals of care was discussed with the patient and he would like to remain full code. - Exam Vitals: Temp Pulse Resp BP Pulse Ox 97.6 F 109 18 120/58 99 07/07/18 08:08 07/07/18 08:08 07/07/18 11:34 07/07/18 08:08 07/07/18 11:34 Exam: General: Patient is alert, oriented, not in distress Head: atraumatic, normocephalic, Eye: normal appearance, PERRL, no scleral icterus, no conjunctival injection ENT: mucous membranes moist, normal external ear exam Neck: normal inspection, trachea midline, full ROM, no carotid bruits Chest: normal inspection, symmetric chest rise Respiratory: Tachypneic, decreased breath sounds bilaterally, crackles in the posterior lung tamayo bilaterally, no wheezing Cardiovascular: Irregularly irregular s1 and s2 No clicks, rubs, gallops, or murmors. Abdomen: Bowel sounds present normoactive x-4 quadrants. Abdomen is soft, nondistended. no Epigastric tenderness. No guarding or rebound. No organomega ly noted, obese musculoskeletal: Spontaneously moving all extremities. no edema, no calf tenderness Skin: warm, dry, intact. Neuro: Alert and oriented x4. No focal deficit Psych: Patient's affect is normal - Assessment and Plan (1) GI bleed Current Visit: Yes Status: Acute Assessment and Plan: most likely upper as he had melena yesterday started on IV protonix drip GI consulted continue to monitor H/H closely transfused one unit of PRBC keep H/H >8 transfused one unit of FFP, follow INR with the next CBC avoid antiplatelets, anticoagulation and NSAIDS continuous tele vitals as per nursing NPO for now (2) Acute blood loss anemia Current Visit: Yes Status: Acute Assessment and Plan: most likely secondary to GIB management as above (3) Acute respiratory failure with hypoxia Current Visit: Yes Status: Acute Assessment and Plan: patient has acute respiratory failure requiring oxygen ( not on home oxygen) Ruled out PE ( CTA negative) most likely secondary to increased mets to the lungs doubt CAP ( Ct chest without evidence of infiltrates) has mild leukocytosis which can be secondary to metastatic disease as he has no fever will hold off of Abx for now - if he develops fever will consider restarting Abx urine antigens negative. xopenex and ipratropium continue oxygen via nasal cannula to keep sats >92% if respiratory distress consider Bipap CTA chest :Chest: No evidence of pulmonary embolism or other acute process. Progression of extensive pulmonary metastatic disease. Mild progression of osseous metastatic disease. (4) Atrial fibrillation with RVR Current Visit: Yes Status: Acute Assessment and Plan: most likley secondary to acute blood loss anemia from GIB cardizem drip stopped will continue home medications and treat underlying cause (severe anemia) telemetry TSH/T4 and cortisol WNL. continue with home cardizem and metoprolol and digoxin limited TTE ordered - pending holding coumadin - risk and benefits discussed with patient and he understands (5) Metastatic melanoma Current Visit: Yes Status: Acute Assessment and Plan: oncology on board Received C3 Ipilumumab (Yervoy) and Nivolumab (Opdivo) 07/05/18. CXR with worsening mets to the lung CT chest, abdomen and pelvis: Chest: No evidence of pulmonary embolism or other acute process. Progression of extensive pulmonary metastatic disease. Mild progression of osseous metastatic disease. Abdomen/pelvis: No acute abnormality. Severe metastatic disease of the liver without significant change. Slightly increased severity osseous metastatic disease. There is nodularity along the mucosal surface of the stomach evident, suspicious for metastatic involvement in this location as well. (6) Vitamin B12 deficiency Current Visit: Yes Status: Acute Assessment and Plan: will start him on vitamin B12 supplements (7) Goals of care, counseling/discussion Current Visit: Yes Status: Acute Assessment and Plan: i discussed goals of care with patient for 15 minutes. he wished to be full code. i discussed CT scan findings with worsening metastatic disease palliative care consulted for goals of care prognosis guarded DVT Prophylaxis: scds - Time Spent with Patient Total time spent is greater than 50% in coordination of care (as documented) at patient's floor/unit and/or counseling patient: Internal Medicine: Result - Labs CBC & Chem 7: 07/07/18 06:36 07/07/18 00:59 Labs: Short CBC 07/07/18 07/07/18 Range/Units 00:59 06:36 WBC 12.6 H (4.3-11.1) K/mcL Hgb 7.8 L D 6.7 L (12.9-16.9) g/dL Hct 24.2 L 20.7 L (37.5-50.1) % Plt Count 259 (140-400) K/mcL BMP 07/07/18 00:59 Sodium 140 Potassium 4.1 Chloride 105 Carbon Dioxide 27 BUN 50 H Creatinine 0.70 Glucose 129 H Calcium 8.0 L Cardiac Enzymes 07/06/18 07/07/18 Range/Units 18:34 00:59 Troponin I 0.03 0.03 (< 0.04) ng/mL - ABG Interpretation ABG results: PT/INR, D-dimer PT 32.9 Seconds (9.4-12.1) H 07/07/18 00:59 - Impressions Impressions Chest CTA 07/06/18 17:32 enlargement causing impression upon the base the bladder again noted. Normal distention of the bladder. Extensive osseous metastatic disease redemonstrated, slightly increased. No acute fracture. IMPRESSION: Chest: No evidence of pulmonary embolism or other acute process. Progression of extensive pulmonary metastatic disease. Mild progression of osseous metastatic disease. Abdomen/pelvis: No acute abnormality. Severe metastatic disease of the liver without significant change. Slightly increased severity osseous metastatic disease. There is nodularity along the mucosal surface of the stomach evident, suspicious for metastatic involvement in this location as well. D/ / Cla Clement MD / Cal Clement MD Interpreting Provider: Cal Clement MD Abdomen/Pelvis CT 07/06/18 17:33 enlargement causing impression upon the base the bladder again noted. Normal distention of the bladder. Extensive osseous metastatic disease redemonstrated, slightly increased. No acute fracture. IMPRESSION: Chest: No evidence of pulmonary embolism or other acute process. Progression of extensive pulmonary metastatic disease. Mild progression of osseous metastatic disease. Abdomen/pelvis: No acute abnormality. Severe metastatic disease of the liver without significant change. Slightly increased severity osseous metastatic disease. There is nodularity along the mucosal surface of the stomach evident, suspicious for metastatic involvement in this location as well. D/ / Cal Clement MD / Cal Clement MD Interpreting Provider: Cal Clement MD Consult Discharge Plan - Plan Referrals: Shaila Ayon MD [Primary Care Provider] - (1) GI bleed Qualifiers: GI bleed type/associated pathology: unspecified gastrointestinal hemorrhage type Qualified Code(s): K92.2 - Gastrointestinal hemorrhage, unspecified
[2018-07-07] MEDS ORDERED: Cyanocobalamin (B-12) 1,000 MCG/ML VIAL IM ONE (12:07)
--- NOTE | 2018-07-07 12:18 | Gastroenterology Consult Note ---
<Julio Shay - Last Filed: 07/07/18 12:16> Date of Encounter: 07/07/18 Time of Encounter: 10:20 - Assessment and plan (1) Anemia Current Visit: Yes Status: Acute Assessment and plan: Hgb 9.5 on admission and this AM Hgb 6.7. Continue to monitor CBC an transfuse PRBC as needed. Plan for EGD once INR <1.5 to r/o esophagitis, gastritis, duodenitis, PUD, MW tear, or AVM. Qualifiers: Anemia type: unspecified type Qualified Code(s): D64.9 - Anemia, unspecified (2) Elevated INR Current Visit: Yes Status: Acute Assessment and plan: INR 2.3 on admission and this AM INR 2.9. Continue to hold Coumadin. One unit FFP has been ordered. Consider Vitamin K/additional FFP. Will need INR <1.5 for EGD tomorrow. (3) GI bleed Current Visit: Yes Status: Acute Assessment and plan: No further episodes of melena. Plan for EGD tomorrow if INR <1.5. Continue PPI. Qualifiers: GI bleed type/associated pathology: unspecified gastrointestinal hemorrhage type Qualified Code(s): K92.2 - Gastrointestinal hemorrhage, unspecified (4) Metastatic melanoma Current Visit: Yes Status: Acute Assessment and plan: CT A/P with severe metastatic disease of the liver without significant change. Slightly increased severity osseous metastatic disease. There is nodularity along the mucosal surface of the stomach evident, suspicious for metastatic involvement in this location as well. Plan for EGD once INR <1.5. - Time Spent With Patient Total time spent is greater than 50% in coordination of care (as documented) at patient's floor/unit and/or counseling patient: GI History of Present Illness - Data of Consult Patient: new to practice Consult date: 07/07/18 Requesting Physician: Janessa Mims - Consult Narrative Reason for consult: GI Bleed History of present illness: Mr. Drake is a 77 year old male with PMHx of Afib on Coumadin, lung cancer (2012), metastatic melanoma with mets to lung, bone, and liver who presented with complains of shortness of breath and chest pressure. Pt reports these symptoms have been occurring for the past month, and worsening progressively throughout this time. He denies fever, chills, abdominal pain, nausea, vomiting. Overnight he had an episode of black tarry stool. He denies hematochezia. INR was elevated to 2.3 on admission, and Coumadin has been held. INR 2.9 this AM, one unit FFP ordered. CT A/P with severe metastatic disease of the liver without significant change. Slightly increased severity osseous metastatic disease. There is nodularity along the mucosal surface of the stomach evident, suspicious for metastatic involvement in this location as well. Procedures: No record NSAIDs: None Anticoagulation: Coumadin Past Med Surg Social Fam HX - Past Medical History Medical history: atrial fibrillation, cancer, DVT, hypertension Additional medical history: partial lung removal, melanoma Psychiatric history: no psych history - Past Surgical History Additional surgical history: partial lung removal - Social History Smoking Status: Former smoker Smokeless Tobacco Status: No Alcohol use: heavy, recent Drug use: none - Family History Father Living Status: Hx Family Respiratory Disorders: Yes (COPD) Hx Family Cancer: Yes Hx Family Medical Disorders: Yes - Gastrointestinal Gastrointestinal: Present: as per HPI - Constitutional Constitutional: as per HPI - EENT Eyes: as per HPI Ears: Present: as per HPI Nose, mouth and throat: Present: as per HPI - Cardiovascular Cardiovascular ROS: Present: as per HPI - Respiratory Respiratory IM: Present: as per HPI - Genitourinary Genitourinary: Absent: change in color, Urinary frequency - Neurological ROS Neurological GI: Present: as per HPI - Hematologic/Lymphatic Hematologic/Lymphatic pediatric: Present: as per HPI - Musculoskeletal Musculoskeletal ROS GI: Present: as per HPI - Integumentary Integumentary GI: Present: as per HPI - Psychiatric ROS Psychiatric GI: Present: as per HPI - Endocrine Endocrine IM: Present: as per HPI - Constitutional Vitals: Temp Pulse Resp BP Pulse Ox 97.6 F 81 20 97/55 93 07/07/18 08:08 07/07/18 11:54 07/07/18 11:54 07/07/18 11:54 07/07/18 11:54 General appearance: Present: cooperative, A&O X 3, no acute distress, answers questions appropriately - Head Head exam: Present: atraumatic, normocephalic - Eye Eye exam: Present: normal appearance, sclera anicteric - ENT ENT exam: Present: mucous membranes dry - Neck Neck exam general surgery: Present: normal inspection, trachea midline - Respiratory Respiratory exam: Present: decreased breath sounds, CTAB. Absent: rales, rhonchi - Cardiovascular Cardiovascular exam: Present: RRR, +S1, +S2 - GI/Abdominal GI/Abdominal exam: Present: soft, no peritoneal signs. Absent: distended, firm, guarding, tenderness - Rectal Rectal exam: Present: deferred - Extremities Exam Extremities exam: Present: warm - Neurological Exam Neurological exam: Present: no focal deficits - Psychiatric Psychiatric exam: Present: normal affect, normal mood - Skin Skin exam: Present: dry, intact, normal color, warm Results - Labs CBC & Chem 7: 07/07/18 06:36 07/07/18 00:59 Labs: Last Result 07/07/18 07/07/18 07/07/18 00:59 00:59 07:50 Calcium 8.0 L Iron % Saturation Transferrin Ferritin Troponin I 0.03 Triglycerides 115 Vitamin B12 180 L Folate 15.6 07/07/18 07:50 Calcium Iron 32 L % Saturation 13 L Transferrin 177 L Ferritin 46 Troponin I Triglycerides Vitamin B12 Folate Entire Visit 07/07/18 07/07/18 07/07/18 00:59 00:59 06:36 Hgb 7.8 L D 6.7 L Hct 24.2 L 20.7 L PT 32.9 H Ferritin Folate 07/07/18 07/07/18 07:50 07:50 Hgb Hct PT Ferritin 46 Folate 15.6 - ABG ABG results: PT/INR, D-dimer PT 32.9 Seconds (9.4-12.1) H 07/07/18 00:59 - Impressions Impressions Chest CTA 07/06/18 17:32 enlargement causing impression upon the base the bladder again noted. Normal distention of the bladder. Extensive osseous metastatic disease redemonstrated, slightly increased. No acute fracture. IMPRESSION: Chest: No evidence of pulmonary embolism or other acute process. Progression of extensive pulmonary metastatic disease. Mild progression of osseous metastatic disease. Abdomen/pelvis: No acute abnormality. Severe metastatic disease of the liver without significant change. Slightly increased severity osseous metastatic disease. There is nodularity along the mucosal surface of the stomach evident, suspicious for metastatic involvement in this location as well. D/ / Cal Clement MD / Cal Clement MD Interpreting Provider: Cal Clement MD Abdomen/Pelvis CT 07/06/18 17:33 enlargement causing impression upon the base the bladder again noted. Normal distention of the bladder. Extensive osseous metastatic disease redemonstrated, slightly increased. No acute fracture. IMPRESSION: Chest: No evidence of pulmonary embolism or other acute process. Progression of extensive pulmonary metastatic disease. Mild progression of osseous metastatic disease. Abdomen/pelvis: No acute abnormality. Severe metastatic disease of the liver without significant change. Slightly increased severity osseous metastatic disease. There is nodularity along the mucosal surface of the stomach evident, suspicious for metastatic involvement in this location as well. D/ / Cal Clement MD / Cal Clement MD Interpreting Provider: Cal Clement MD Consult Discharge Plan - Plan Referrals: Shaila Ayon MD [Primary Care Provider] - <AnjeldorianTiffanieJanis - Last Filed: 07/07/18 18:19> Date of Encounter: 07/07/18 Time of Encounter: 14:00 - Time Spent With Patient Total time spent is greater than 50% in coordination of care (as documented) at patient's floor/unit and/or counseling patient: GI History of Present Illness - Data of Consult Requesting Physician: Janessa Mims - Consult Narrative History of present illness: Mr. Drake is a 77 year old male - Constitutional Vitals: Temp Pulse Resp BP Pulse Ox 98.3 F 111 20 125/61 94 07/07/18 16:55 07/07/18 16:55 07/07/18 16:55 07/07/18 16:55 07/07/18 15:39 Results - Labs CBC & Chem 7: 07/07/18 16:20 07/07/18 00:59 Labs: Last Result 07/07/18 07/07/18 07:50 07:50 Iron 32 L % Saturation 13 L Transferrin 177 L Ferritin 46 Vitamin B12 180 L Folate 15.6 Entire Visit 07/07/18 07/07/18 07/07/18 06:36 07:50 07:50 Hgb 6.7 L Hct 20.7 L PT Ferritin 46 Folate 15.6 07/07/18 07/07/18 16:20 16:20 Hgb 5.9 L* Hct 17.8 L PT 35.9 H Ferritin Folate - ABG ABG results: PT/INR, D-dimer PT 35.9 Seconds (9.4-12.1) H 07/07/18 16:20 - Impressions Impressions Chest CTA 07/06/18 17:32 enlargement causing impression upon the base the bladder again noted. Normal distention of the bladder. Extensive osseous metastatic disease redemonstrated, slightly increased. No acute fracture. IMPRESSION: Chest: No evidence of pulmonary embolism or other acute process. Progression of extensive pulmonary metastatic disease. Mild progression of osseous metastatic disease. Abdomen/pelvis: No acute abnormality. Severe metastatic disease of the liver without significant change. Slightly increased severity osseous metastatic disease. There is nodularity along the mucosal surface of the stomach evident, suspicious for metastatic involvement in this location as well. D/ / Cal Clement MD / Cal Clement MD Interpreting Provider: Cal Clement MD Abdomen/Pelvis CT 07/06/18 17:33 enlargement causing impression upon the base the bladder again noted. Normal distention of the bladder. Extensive osseous metastatic disease redemonstrated, slightly increased. No acute fracture. IMPRESSION: Chest: No evidence of pulmonary embolism or other acute process. Progression of extensive pulmonary metastatic disease. Mild progression of osseous metastatic disease. Abdomen/pelvis: No acute abnormality. Severe metastatic disease of the liver without significant change. Slightly increased severity osseous metastatic disease. There is nodularity along the mucosal surface of the stomach evident, suspicious for metastatic involvement in this location as well. D/ / Cal Clement MD / Cal Clement MD Interpreting Provider: Cal Clement MD Echocardiogram Limited Views 07/07/18 08:00 Impressions: Limited study to evaluate LVEF LVEF 55%. Moderate concentric left ventricular hypertrophy. Technically sub-optimal due to clinical status.Atrial fibrillation with rapid ventricular response. Left Ventricular Wall Motion: Rest Echo Findings All wall segments showed normal motion. Findings: Study Quality * Technically sub-optimal due to clinical status. ECG Findings * Atrial fibrillation with rapid ventricular response. Left Ventricle * LVEF 55%. * Moderate concentric left ventricular hypertrophy. - Attending Attestation I have personally performed a face to face evaluation on this patient. I have reviewed and agree with the care plan. History and Exam by me shows: Patient seen is mildly short of breath on examination: Abdomen is benign. Assessment:severe metastatic disease of the liver without significant change. Slightly increased severity osseous metastatic disease. There is nodularity along the mucosal surface of the stomach evident, suspicious for metastatic involvement in this location as well. #2 coagulopathy. ReC: Patient is getting blood transfusion and FFP and also vitamin K he will have a scope done in the morning
[2018-07-07] MEDS ORDERED: 0.9 % Sodium Chloride 250 ML ONE ×3 (13:06→20:10)
[2018-07-07 16:37] LABS: Hematocrit 17.8 % (37.5-50.1)
[2018-07-07 16:43] LABS: Hemoglobin 5.9 g/dL (12.9-16.9)
--- NOTE | 2018-07-07 16:44 | Oncology Inp Progress Note ---
<Anand,Concha S - Last Filed: 07/07/18 16:55> Date of Encounter: 07/07/18 Oncology: Obj Data - Labs CBC & Chem 7: 07/07/18 16:20 07/07/18 00:59 Consult Discharge Plan - Plan Referrals: Shaila Ayon MD [Primary Care Provider] - Inpatient Charges Provider: Dr. Alva Michel Follow up - Inpatient: [id number] - Attending Attestation I examined this patient and my medical decision-making was reviewed with the Advanced Practice Nurse. I agree with the documented findings, disposition and treatment plan as described except to the extent set forth below. 1. Metastatic melanoma. Widespread lung nodules and liver metastasis and bony metastasis CT angiogram chest and CT abdomen and pelvis with contrast 07/06/2018 negative for PE. Increase in lung nodules compared to 05/05/2018. The increase is still modest largest around 2.5 cm the left lower lobe. Also some new nodules. Mild progression of bone metastasis. Several liver metastasis no major change. Nodularity along the mucosal surface of stomach which could be contributing to GI bleed 2. GI bleed during this admission and his dropped his hemoglobin currently 6. Likely bleeding is from the stomach metastasis. He needs EGD colonoscopy 3. Acute on chronic shortness of breath. The pulmonary nodules are not compromising the R-wave. Anemia is definitely contributing to some of the shortness of breath. It reviewed his CAT scan pictures compared to previous one from April 2018 Given his decline in general condition and progression of disease on immunotherapy we will start him on combination of BRAF and MEK inhibitor <Kaycee Garcia L - Last Filed: 07/07/18 17:41> Date of Encounter: 07/07/18 Time of Encounter: 13:30 (1) GI bleed Current Visit: Yes Status: Acute Assessment and plan: Acute drop in hgb with episode of melena last evening Plan: GI consulted and planning for EGD Continue to hold coumadin FFP currently infusing PRBC to keep hgb >7 Continue protonix B12 noted to be significantly low at 180, although not the cause of his acute anemia we will plan for B12 SQ daily x5 CT of the abdomen noted nodularity along the mucosal surface of the stomach evident, suspicious for metastatic involvement in this location as well--this could be the etiology of GIB Qualifiers: GI bleed type/associated pathology: unspecified gastrointestinal hemorrhage type Qualified Code(s): K92.2 - Gastrointestinal hemorrhage, unspecified (2) Metastatic melanoma Current Visit: Yes Status: Acute Assessment and plan: Metastatic melanoma. Widespread lung nodules and liver metastasis and bony metastasis CT angiogram chest and CT abdomen and pelvis with contrast 07/06/2018 does note progression in disease. Plan: Consider radiotherapy on outpatient basis to stomach involvement if needed Likely plan to transition to Dabrafenib/Tratenib on outpatient basis Oncology: Subj Interval history: Mr. Drake is resting in bed. No family at bedside. He denies pain, continues to feel SOB but this is somewhat improved since admission. He had an episode of melena during the night and hgb was noted to have almost a 3 gram decrease overnight. Coumadin has been held, GI consulted and planning for EGD. He has order for FFP and PRBC. - Constitutional General appearance: cooperative, no acute distress, no febrile - Head Head exam: Present: atraumatic - ENT ENT exam: Present: mucous membranes moist, normal oropharynx - Respiratory Respiratory exam: Present: CTAB - Cardiovascular Cardiovascular exam: Present: irregular rhythm - GI/Abdominal GI/Abdominal exam: Present: normal bowel sounds, soft. Absent: tenderness - Extremities Exam Extremities exam: Present: normal inspection. Absent: calf tenderness - Neurological Exam Neurological exam: Present: alert, oriented X3, no focal deficits, strengths equal and symetr throughout - Psychiatric Psychiatric exam: Present: normal affect, normal mood - Skin Skin exam: Present: dry, pallor, warm Oncology: Obj Data - Labs CBC & Chem 7: 07/07/18 16:20 07/07/18 00:59 Inpatient Charges Provider: Dr. Alva Michel
[2018-07-07 16:46] LABS: INR 3.2; Prothrombin Time 35.9 Seconds (9.4-12.1)
[2018-07-07] MEDS: Mirtazapine 15 MG TABLET PO SCH (20:19)
[2018-07-07 20:20] LABS: Hematocrit 19.7 % (37.5-50.1); Hemoglobin 6.3 g/dL (12.9-16.9)
[2018-07-07] MEDS ORDERED: Acetaminophen IV 500 MG/50 ML INFUS..BTL IVPB ONE (23:36)
[2018-07-08] MEDS ORDERED: 0.9 % Sodium Chloride 250 ML ONE ×3 (00:59→15:13)
[2018-07-08 03:08] LABS: Hematocrit 19.9 % (37.5-50.1); Hemoglobin 6.4 g/dL (12.9-16.9); Mean Corpuscular HGB Conc 32.2 g/dL (31.6-35.5); Mean Corpuscular Hemoglobin 29.5 pg (28.0-33.3); Mean Corpuscular Volume 91.7 fL (83.0-100.0); Mean Platelet Volume 9.8 fL (9.4-12.4); Platelet Count 180 K/mcL (140-400); Red Blood Count 2.17 M/mcL (4.19-5.50); Red Cell Distribution Width 15.2 % (11.5-14.5)
[2018-07-08 03:10] LABS: INR 2.4; Prothrombin Time 27.6 Seconds (9.4-12.1)
[2018-07-08 03:23] LABS: Alanine Aminotransferase 12 Units/L (7-52); Albumin 2.6 g/dL (3.5-5.7); Albumin/Globulin Ratio 1.1 (1.1-2.2); Alkaline Phosphatase 87 Units/L (34-104); Aspartate Amino Transferase 19 Units/L (13-39); BUN/Creatinine Ratio 75 (6-26); Bilirubin,Total 0.5 mg/dL (0.3-1.0); Blood Urea Nitrogen 50 mg/dL (8-23); Calcium 7.7 mg/dL (8.6-10.3); Carbon Dioxide 26 mEq/L (23-29); Chloride 107 mEq/L (98-107); Globulin 2.3 g/dL (2.4-3.5); Glucose 141 mg/dL (70-105); Osmolality,Calculated 308 (280-300); Potassium 4.1 mEq/L (3.5-5.1); Sodium 141 mEq/L (136-145); Total Protein 4.9 g/dL (6.4-8.9); eGFR For Non-African Americans > 60 (> 60)
[2018-07-08] MEDS: Ipratropium Neb 0.5 MG NEBULIZER IH SCH ×5 (03:52→20:45)
[2018-07-08] MEDS: Levalbuterol Neb 1.25 MG/3 ML IH SCH ×4 (03:52→20:45)
[2018-07-08] MEDS: 0.9 % Sodium Chloride 1,000 ML IVC SCH (07:29)
[2018-07-08] MEDS: Pantoprazole 40 MG in 0.9 % Sodium Chloride Mini Bag 100 ML IVC SCH ×6 (07:29→16:06)
--- NOTE | 2018-07-08 08:23 | Anesthesia Evaluation PreOp ---
Date of Encounter: 07/08/18 Time of Encounter: 08:21 - Past History Planned Operation: EGD Cardiac History: HTN, Arrhythmia (Afib), Other (GI bleed, anemia and elevated INR. S/P 2 PRBC and 3 FFP since admission. Last Hgb 6.4 with another PRBC being given. 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 Widespread lung nodules and liver metastasis and bony metastasis) Anesthesia History: No Prior Anesthetic Complications, Past Anesthesia Alcohol Use: heavy, recent Drug use: none Medications and Allergies Allopurinol [Zyloprim 300 MG] 300 mg PO DAILY 05/04/18 [History] Atorvastatin [Lipitor] 20 mg PO DAILY 05/04/18 [History] Budesonide/Formoterol 80/4.5 [Symbicort 80/4.5] 2 puff IH BID PRN 05/04/18 [History] Digoxin [Lanoxin] 0.125 mg PO DAILY 05/04/18 [History] Diltiazem CD (24hr) [Cardizem CD] 240 mg PO DAILY 05/04/18 [History] Finasteride [Proscar] 5 mg PO DAILY 05/04/18 [History] Ipratropium/Albuterol Neb [Duoneb] 3 ml IH Q6H 05/04/18 [History] Multivit-Min/FA/Lycopen/Lutein [Centrum Silver Tablet] 1 tab PO DAILY 05/04/18 [History] Omeprazole [PriLOSEC] 20 mg PO DAILY 05/04/18 [History] Saw [place] 160 mg PO BID 05/04/18 [History] Tamsulosin [Flomax] 0.4 mg PO DAILY 05/04/18 [History] Warfarin [Coumadin] 6 mg PO DAILY 05/04/18 [History] Ferrous Sulfate [High Potency Iron] 27 mg PO DAILY 05/05/18 [History] Metoprolol Tartrate 50 mg PO BID 05/05/18 [History] Potassium Chloride [K-Tab ER] 20 meq PO Q48H 05/05/18 [History] Mirtazapine [Remeron] 15 mg PO HS #30 tablet 06/08/18 [Rx] Albuterol Sulfate [Proair Hfa] 1 puff IH Q6H PRN 07/06/18 [History] Allergy/AdvReac Type Severity Reaction Status Date / Time tape AdvReac Rash Uncoded 07/06/18 10:52 - Meds/Allergy Pre-op Review Medications Reviewed: Yes Allergies Reviewed: Yes Beta Blockers on Current Med List: No Anesthesia Results - Labs 07/08/18 07:43 07/08/18 02:33 Laboratory Tests 07/06/18 07/08/18 11:06 02:33 PT 27.6 H INR 2.4 APTT 34.6 - Imaging EKG: report reviewed (Atrial fibrillation with rapid V-rate Probable anteroseptal infarct, old ST depression, probably rate related) Additional studies: 06/2018 EV/EV limited echocardiogram Impressions: Limited study to evaluate LVEF LVEF 55%. Moderate concentric left ventricular hypertrophy. Technically sub-optimal due to clinical status.Atrial fibrillation with rapid ventricular response. Anesthesia Exam Vital Signs/O2 Sat/Glucose, Most Recent Temp Pulse Resp BP Pulse Ox 98.9 F 115 18 131/53 95 07/08/18 07:52 07/08/18 07:52 07/08/18 07:52 07/08/18 07:52 07/08/18 08:03 Weight: 101 kg - HEENT Pupil (Motor): Pupils equal Mallampati: II Denture Type: Upper: Partial, Lower: Partial - CUTTER TENDER LOC: Oriented CUTTER TENDER Motor: Normal RUE, Normal LUE, Normal RLE, Normal LLE, Normal Face CUTTER TENDER Sensory: Normal: RUE, LUE, RLE, LLE, Face - Cardiac Rhythm: Irregular Murmur: None - Pulmonary Breath Sounds: bilateral Clear Respiratory Effort: Symmetrical Anesthesia Assess/Plan ASA Score: 4 (HTN, Afib, metastatic melanoma, anemia) Level of consciousness: Cooperative, Oriented Anesthetic Plan: MAC Monitoring Plan: Standard Monitors Recovery Plan: PACU
[2018-07-08] MEDS ORDERED: *HR* Propofol 200 MG/20 ML VIAL IVP ONE ×2 (08:27→08:55)
[2018-07-08 08:43] LABS: Hematocrit 17.7 % (37.5-50.1)
[2018-07-08] MEDS ORDERED: Esmolol 100 MG/10 ML VIAL IVP ONE (08:46)
[2018-07-08 08:56] LABS: Hemoglobin 5.6 g/dL (12.9-16.9)
[2018-07-08] MEDS ORDERED: Cyanocobalamin (B-12) 1,000 MCG TABLET PO SCH (09:00)
[2018-07-08] MEDS ORDERED: 0.9 % Sodium Chloride 500 ML IVC SCH (09:00)
[2018-07-08] MEDS ORDERED: 0.9 % Sodium Chloride 500 ML ONE (11:18)
--- NOTE | 2018-07-08 12:00 | Anesthesia Evaluation Post Op ---
Date of Encounter: 07/08/18 Time of Encounter: 12:00 - Vital Signs Vital Signs: Vital Signs/O2 Sat/Glucose, Most Recent Temp Pulse Resp BP Pulse Ox 98.2 F 106 16 124/75 100 07/08/18 11:20 07/08/18 11:20 07/08/18 11:20 07/08/18 11:20 07/08/18 08:59 - Lungs Lungs: Clear Ascult./Percussion - Airway Airway: Non-obstructed - Cardiovascular Regular Rate - Mental Status Mental Status: Alert & Oriented, Answers Appropriately - Pain Pain Scale: 0 - Nausea Vomiting Nausea Vomiting: Not Present - Hydration Hydration: NPO - Discharge PostOp Status: Transfer Patient to floor
[2018-07-08] MEDS: *HR* Digoxin 0.125 MG TABLET PO SCH (12:12)
--- NOTE | 2018-07-08 12:15 | Internal Med Progress Note ---
Hospitalist Progress Note - Encounter Date of Encounter: 07/08/18 Time of Encounter: 11:00 - Subjective Interval History: Patient was seen and examined at bedside. He status post radiation therapy, reports that he is feeling well after endoscopy. Denies any melena or hematemesis currently, understands that he will need to remain nothing by mouth for the remainder of the day. He denies chest pain, shortness of breath or palpitations currently. - Exam Vitals: Temp Pulse Resp BP Pulse Ox 98.2 F 106 16 124/75 100 07/08/18 11:20 07/08/18 11:20 07/08/18 11:20 07/08/18 11:20 07/08/18 08:59 Exam: General: Patient is alert, oriented, not in distress Head: atraumatic, normocephalic, Eye: normal appearance, PERRL, no scleral icterus, no conjunctival injection ENT: mucous membranes moist, normal external ear exam Neck: normal inspection, trachea midline, full ROM, no carotid bruits Chest: normal inspection, symmetric chest rise Respiratory: Tachypneic, decreased breath sounds bilaterally, crackles in the posterior lung tamayo bilaterally, no wheezing Cardiovascular: Irregularly irregular s1 and s2 No clicks, rubs, gallops, or murmors. Abdomen: Bowel sounds present normoactive x-4 quadrants. Abdomen is soft, nondistended. no Epigastric tenderness. No guarding or rebound. No organomegaly noted, obese musculoskeletal: Spontaneously moving all extremities. no edema, no calf tenderness Skin: warm, dry, intact. Neuro: Alert and oriented x4. No focal deficit Psych: Patient's affect is normal - Assessment and Plan (1) GI bleed Current Visit: Yes Status: Acute Assessment and Plan: s/p EGD on 07/08 with bleeding polyps ? METS IV protonix drip GI onboard will transfer to ICU - ICU team consulted oncology on board - for radiation today continue to monitor H/H closely Q4H and transfuse below 8 ( cardiac history) S/P 3 PRBC, 3FFP adn vitamin K Kcentra ordered will transfuse another PRBC STAT avoid antiplatelets, anticoagulation and NSAIDS continuous tele vitals as per nursing NPO for now (2) Acute blood loss anemia Current Visit: Yes Status: Acute Assessment and Plan: secondary to GIB management as above (3) Acute respiratory failure with hypoxia Current Visit: Yes Status: Acute Assessment and Plan: patient has acute respiratory failure requiring oxygen ( not on home oxygen) Ruled out PE ( CTA negative) most likely secondary to increased mets to the lungs doubt CAP ( Ct chest without evidence of infiltrates) has mild leukocytosis which can be secondary to metastatic disease as he has no fever will hold off of Abx for now - if he develops fever will consider restarting Abx urine antigens negative. xopenex and ipratropium continue oxygen via nasal cannula to keep sats >92% if respiratory distress consider Bipap CTA chest :Chest: No evidence of pulmonary embolism or other acute process. Progression of extensive pulmonary metastatic disease. Mild progression of osseous metastatic disease. (4) Atrial fibrillation with RVR Current Visit: Yes Status: Acute Assessment and Plan: most likley secondary to acute blood loss anemia from GIB cardizem drip stopped treating nderlying cause which is anemia holding all medications as he is severely anemic. telemetry TSH/T4 and cortisol WNL. limited TTE ordered - pending holding coumadin - risk and benefits discussed with patient and he understands (5) Metastatic melanoma Current Visit: Yes Status: Acute Assessment and Plan: oncology on board Received C3 Ipilumumab (Yervoy) and Nivolumab (Opdivo) 07/05/18. CXR with worsening mets to the lung for radiation as per oncology on 07/08/18 CT chest, abdomen and pelvis: Chest: No evidence of pulmonary embolism or other acute process. Progression of extensive pulmonary metastatic disease. Mild progression of osseous metastatic disease. Abdomen/pelvis: No acute abnormality. Severe metastatic disease of the liver without significant change. Slightly increased severity osseous metastatic disease. There is nodularity along the mucosal surface of the stomach evident, suspicious for metastatic involvement in this location as well. (6) Vitamin B12 deficiency Current Visit: Yes Status: Acute Assessment and Plan: continue with b12 supplementations (7) Goals of care, counseling/discussion Current Visit: Yes Status: Acute Assessment and Plan: i discussed goals of care with patient for 15 minutes. he wished to be full code. i discussed CT scan findings with worsening metastatic disease palliative care consulted for goals of care prognosis poor DVT Prophylaxis: scds - Time Spent with Patient Total time spent is greater than 50% in coordination of care (as documented) at patient's floor/unit and/or counseling patient: Internal Medicine: Result - Labs CBC & Chem 7: 07/08/18 16:00 07/08/18 16:00 Labs: Short CBC 07/07/18 07/07/18 07/08/18 Range/Units 16:20 20:05 02:33 WBC 12.7 H (4.3-11.1) K/mcL Hgb 5.9 L* 6.3 L 6.4 L (12.9-16.9) g/dL Hct 17.8 L 19.7 L 19.9 L (37.5-50.1) % Plt Count 180 (140-400) K/mcL 07/08/18 Range/Units 07:43 WBC (4.3-11.1) K/mcL Hgb 5.6 L* (12.9-16.9) g/dL Hct 17.7 L (37.5-50.1) % Plt Count (140-400) K/mcL BMP 07/08/18 02:33 Sodium 141 Potassium 4.1 Chloride 107 Carbon Dioxide 26 BUN 50 H Creatinine 0.67 L Glucose 141 H Calcium 7.7 L Liver Function 07/08/18 Range/Units 02:33 Total Bilirubin 0.5 (0.3-1.0) mg/dL AST 19 (13-39) Units/L ALT 12 (7-52) Units/L Alkaline Phosphatase 87 (34-104) Units/L Albumin 2.6 L (3.5-5.7) g/dL - ABG Interpretation ABG results: PT/INR, D-dimer PT 27.6 Seconds (9.4-12.1) H 07/08/18 02:33 - Impressions Impressions Echocardiogram Limited Views 07/07/18 08:00 Impressions: Limited study to evaluate LVEF LVEF 55%. Moderate concentric left ventricular hypertrophy. Technically sub-optimal due to clinical status.Atrial fibrillation with rapid ventricular response. Left Ventricular Wall Motion: Rest Echo Findings All wall segments showed normal motion. Findings: Study Quality * Technically sub-optimal due to clinical status. ECG Findings * Atrial fibrillation with rapid ventricular response. Left Ventricle * LVEF 55%. * Moderate concentric left ventricular hypertrophy. Consult Discharge Plan - Plan Referrals: Shaila Ayon MD [Primary Care Provider] - (1) GI bleed Qualifiers: GI bleed type/associated pathology: unspecified gastrointestinal hemorrhage type Qualified Code(s): K92.2 - Gastrointestinal hemorrhage, unspecified
--- NOTE | 2018-07-08 12:19 | Oncology Inp Progress Note ---
<Kaycee Garcia L - Last Filed: 07/08/18 13:25> Date of Encounter: 07/08/18 Time of Encounter: 10:30 (1) GI bleed Current Visit: Yes Status: Acute Assessment and plan: Active GIB secondary to Acute drop in hgb with episode of melena CT of the abdomen noted nodularity along the mucosal surface of the stomach evident, suspicious for metastatic involvement EGD today revealed multiple 20-30 mm sessile polypoid lesions with active bleeding in the gastric body which appear to represent metastasis. 1 polypoid lesion with active oozing, 2 clips placed and she must delgado was applied. Plan: Continue to hold coumadin Discussed use of Kcentra however it appears patient received Vitamin K 10 mg on 07/07 and 07/08 would recommend holding Kcentra for concern for thrombotic effect and continue to use FFP if needed S/P 4 units FFP PRBC to keep hgb >7 Continue protonix B12 noted to be significantly low at 180, although not the cause of his acute anemia we will plan for B12 SQ daily x5 Recommend transfer to ICU I discussed EGD findings with patient at bedside that confirmed our suspicion for metastatic involvement of the stomach which is causing his bleeding. He has extensive liver involvement that may be contributing to his coagulopathy and further bleeding. We are able to radiate his stomach with the goal to further control bleeding although there is risk that there could be other hemorrhagic lesions contributing to acute blood loss/liver disease contributing to coagulopathy. Patient continues to request aggressive management of symptoms and control of his disease. We are planning to transfer [facility] for consultation with Dr. Duarte, Radiation Oncologist, for CT simulation planning and one fraction of r adiotherapy today. Qualifiers: GI bleed type/associated pathology: unspecified gastrointestinal hemorrhage type Qualified Code(s): K92.2 - Gastrointestinal hemorrhage, unspecified (2) Metastatic melanoma Current Visit: Yes Status: Acute Assessment and plan: Metastatic melanoma. Widespread lung nodules and liver metastasis and bony metastasis CT angiogram chest and CT abdomen and pelvis with contrast 07/06/2018 does note progression in disease. Plan: Consider radiotherapy on outpatient basis to stomach involvement if needed Likely plan to transition to Dabrafenib/Tratenib on outpatient basis Oncology: Subj Interval history: Mr. Drake was evaluated at bedside shortly after returning from his EGD. He is thirsty and wanting to drink, he was given oral swabs as recommendation is to keep NPO at this time. We discussed his EGD findings which found active bleeding along the gastric body concerning for metastatic involvement. He continues to feel SOB. Denies chest pain, headache, nausea, vomiting, diarrhea, hematochezia or melena. His is being notivied by nursing staff with an update as well as the plan to transfer to ICU following return from the cancer center for urgent radiotherapy to stomach in effort to control bleeding - Constitutional General appearance: cooperative, no acute distress, no febrile - Head Head exam: Present: atraumatic - ENT ENT exam: Present: mucous membranes moist, normal oropharynx - Respiratory Respiratory exam: Present: CTAB. Absent: respiratory distress - Cardiovascular Cardiovascular exam: Present: irregular rhythm - GI/Abdominal GI/Abdominal exam: Present: normal bowel sounds, soft. Absent: rebound, tend erness - Extremities Exam Extremities exam: Present: normal inspection. Absent: calf tenderness - Neurological Exam Neurological exam: Present: alert, oriented X3, no focal deficits, strengths equal and symetr throughout - Psychiatric Psychiatric exam: Present: anxious - Skin Skin exam: Present: dry, pallor, warm Oncology: Obj Data - Labs CBC & Chem 7: 07/08/18 07:43 07/08/18 02:33 Consult Discharge Plan - Plan Referrals: Shaila Ayon MD [Primary Care Provider] - Inpatient Charges Provider: Dr. Alva Michel <AnandConcha S - Last Filed: 07/08/18 15:26> Date of Encounter: 07/08/18 Oncology: Obj Data - Labs CBC & Chem 7: 07/08/18 07:43 07/08/18 02:33 Inpatient Charges Provider: Dr. Alva Michel Follow up - Inpatient: [id number] - Attending Attestation I examined this patient and my medical decision-making was reviewed with the Advanced Practice Nurse. I agree with the documented findings, disposition and treatment plan as described except to the extent set forth below. 1. Metastatic melanoma. He had widespread lung nodules bilateral largest ar ound 2.5 cm. Diffuse liver metastasis and bone metastasis 2. Admitted with increased shortness of breath and deconditioning. CTA chest abdomen and pelvis 07/07/2018 showed no PE. Increase in lung nodules which is only modest. Also mild increase in liver metastasis. He completed 3 cycles of ipilimumab nivolumab day before admission. Given the progression of disease and declining general condition will change treatment New treatment Intent: Palliative Binimetinib 45 mg by mouth twice a day Encorafenib 450 mg by mouth daily Treatment to start soon as he gets the medication filled. We will involve addiction social worker needed 3. Acute GI bleed. CAT scan showed nodularities in the stomach. EGD 07/08/2018 showed multiple gastric nodules consistent with melanoma Discussed with Dr. Duarte. He received single dose of 8 raiza radiation to the stomach. Hopefully this will reduce gastric bleeding 4. Acute anemia hemoglobin between 5 and 6. Transfuse packed RBC to keep hemoglobin more than 8 5. Coagulopathy secondary to Coumadin. He is been on Coumadin for atrial fibrillation INR has improved from 3.4-2.5 with 4 units of FFP. He also received vitamin K 10 mg by mouth twice At this time recommend holding off prothrombin complex concentrates. The risk of bleeding is fairly low with INR of 2.4. If necessary administer 4 more units of FFP 6. Shortness of breath generalized deconditioning. This is multifactorial. No PE. The lung metastasis is still fairly small to cause this much shortness of breath. Anemia is playing a role.
--- NOTE | 2018-07-08 12:39 | Rad Onc Consult Note ---
Radiation Oncology HPI - Oncology history Comments: 77-year-old male presents with an AJCC clinical stage IV melanoma, progressing on systemic therapy and with active bleeding confirmed in the gastric metastatic lesions. Biopsy of liver lesion was positive for melanoma. Patient with elevated INR secondary to coumadin as well. Patient receiving blood at this time and being admitted to the ICU. Date: 07/08/18 Primary Care Provider: Shaila Ayon MD History of present illness: 77-year-old male presents with an AJCC clinical stage IV melanoma, progressing on systemic therapy and with active bleeding confirmed in the gastric metastatic lesions. Biopsy of liver lesion was positive for melanoma. Patient with elevated INR secondary to coumadin as well. Patient receiving blood at this time and being admitted to the ICU. Patient reports he has occasional abdominal pain, fatigue, shortness of breath, and nausea. Patient denies a history of radiotherapy. He has a history of lung cancer treatment in 2012 which was surgical treatment. Code Status: Full Code Past Medical History: arthritis, atrial fibrillation, hypertension Other History: lung disease Surgical History: cancer surgery, orthopedic, other Smoking Status: Former smoker Smokeless Tobacco Status: No Alcohol use: heavy, recent Drug use: none Family History -Oncology: cancer Oncology - Medications Allopurinol [Zyloprim 300 MG] 300 mg PO DAILY 05/04/18 [History] Atorvastatin [Lipitor] 20 mg PO DAILY 05/04/18 [History] Budesonide/Formoterol 80/4.5 [Symbicort 80/4.5] 2 puff IH BID PRN 05/04/18 [History] Digoxin [Lanoxin] 0.125 mg PO DAILY 05/04/18 [History] Diltiazem CD (24hr) [Cardizem CD] 240 mg PO DAILY 05/04/18 [History] Finasteride [Proscar] 5 mg PO DAILY 05/04/18 [History] Ipratropium/Albuterol Neb [Duoneb] 3 ml IH Q6H 05/04/18 [History] Multivit-Min/FA/Lycopen/Lutein [Centrum Silver Tablet] 1 tab PO DAILY 05/04/18 [History] Omeprazole [PriLOSEC] 20 mg PO DAILY 05/04/18 [History] Saw [place] 160 mg PO BID 05/04/18 [History] Tamsulosin [Flomax] 0.4 mg PO DAILY 05/04/18 [History] Warfarin [Coumadin] 6 mg PO DAILY 05/04/18 [History] Ferrous Sulfate [High Potency Iron] 27 mg PO DAILY 05/05/18 [History] Metoprolol Tartrate 50 mg PO BID 05/05/18 [History] Potassium Chloride [K-Tab ER] 20 meq PO Q48H 05/05/18 [History] Mirtazapine [Remeron] 15 mg PO HS #30 tablet 06/08/18 [Rx] Albuterol Sulfate [Proair Hfa] 1 puff IH Q6H PRN 07/06/18 [History] Allergy/AdvReac Type Severity Reaction Status Date / Time tape AdvReac Rash Uncoded 07/06/18 10:52 Review of Systems Provider Comments: A 12 point review of systems was performed. Pertinent positives and negatives are listed below and in the history of present illness. All other systems negative. Physical Exam - Vitals Vital Signs: Last Vital Signs Temp 98.2 F 07/08/18 11:20 Pulse 106 07/08/18 11:20 Resp 16 07/08/18 11:20 BP 124/75 07/08/18 11:20 Pulse Ox 100 07/08/18 08:59 Height: 1.85 m Weight: 101.3 kg ECO - Consciousness/Orientation Level Of Consciousness: Awake, Alert, Appropriate, Follows Commands Patient Orientation: Person, Place, Time, Name, Age, Date of , Day of Month, Day of Week, Month, Year, Time of Day Physical Exam: General: Alert and oriented, short of breath, pallor evident. Mental Status: Affect appropriate for circumstances HEENT: Sclerae anicteric. No mucositis or thrush. No other oral lesions or erythema. Skin: No rashes or petechiae. Lymph nodes: No cervical, supraclavicular, axillary, or inguinal adenopathy. Cardiovascular: Regular rate and rhythm. No gallops, murmurs, or rubs. Abdomen: Soft, nontender; no organomegaly or masses palpable. Extremities: No edema. No calf swelling or tenderness. No joint deformity. Neurologic: Alert, cranial nerves II-XII intact; no focal weakness or sensory abnormalities. Oncology- Results - Labs Labs: 07/08/18 07/08/18 07/08/18 10:40 07:43 02:33 WBC RBC Hgb 5.6 L* Hct 17.7 L MCV MCH MCHC RDW Plt Count MPV Immature Gran % Seg Neutrophils % Lymphocytes % Monocytes % Eosinophils % Basophils % Neutrophils # Lymphocytes # Monocytes # Eosinophils # Basophils # Nucleated RBCs/100 WBC PT 27.6 H INR 2.4 APTT Sodium Potassium Chloride Carbon Dioxide BUN Creatinine Est GFR ( Amer) Est GFR (Non-Af Amer) BUN/Creatinine Ratio Glucose Calculated Osmolality Lactic Acid Calcium Phosphorus Magnesium Iron % Saturation Transferrin Ferritin Total Bilirubin Direct Bilirubin Indirect Bilirubin AST ALT Alkaline Phosphatase Troponin I C-Reactive Protein B-Natriuretic Peptide Serum Total Protein Albumin Globulin Albumin/Globulin Ratio Triglycerides Cholesterol LDL Cholesterol, Calc VLDL Cholesterol, Calc HDL Cholesterol Cholesterol/HDL Ratio Lipase Vitamin B12 Folate TSH Blood Type Antibody Screen Crossmatch See Detail 07/08/18 07/08/18 07/07/18 02:33 02:33 20:05 WBC 12.7 H RBC 2.17 L Hgb 6.4 L 6.3 L Hct 19.9 L 19.7 L MCV 91.7 MCH 29.5 MCHC 32.2 RDW 15.2 H Plt Count 180 MPV 9.8 Immature Gran % Seg Neutrophils % Lymphocytes % Monocytes % Eosinophils % Basophils % Neutrophils # Lymphocytes # Monocytes # Eosinophils # Basophils # Nucleated RBCs/100 WBC PT INR APTT Sodium 141 Potassium 4.1 Chloride 107 Carbon Dioxide 26 BUN 50 H Creatinine 0.67 L Est GFR ( Amer) > 60 Est GFR (Non-Af Amer) > 60 BUN/Creatinine Ratio 75 H Glucose 141 H Calculated Osmolality 308 H Lactic Acid Calcium 7.7 L Phosphorus Magnesium Iron % Saturation Transferrin Ferritin Total Bilirubin 0.5 Direct Bilirubin Indirect Bilirubin AST 19 ALT 12 Alkaline Phosphatase 87 Troponin I C-Reactive Protein B-Natriuretic Peptide Serum Total Protein 4.9 L Albumin 2.6 L Globulin 2.3 L Albumin/Globulin Ratio 1.1 Triglycerides Cholesterol LDL Cholesterol, Calc VLDL Cholesterol, Calc HDL Cholesterol Cholesterol/HDL Ratio Lipase Vitamin B12 Folate TSH Blood Type Antibody Screen Crossmatch 07/07/18 07/07/18 07/07/18 16:20 16:20 07:50 WBC RBC Hgb 5.9 L* Hct 17.8 L MCV MCH MCHC RDW Plt Count MPV Immature Gran % Seg Neutrophils % Lymphocytes % Monocytes % Eosinophils % Basophils % Neutrophils # Lymphocytes # Monocytes # Eosinophils # Basophils # Nucleated RBCs/100 WBC PT 35.9 H INR 3.2 APTT Sodium Potassium Chloride Carbon Dioxide BUN Creatinine Est GFR ( Amer) Est GFR (Non-Af Amer) BUN/Creatinine Ratio Glucose Calculated Osmolality Lactic Acid Calcium Phosphorus Magnesium Iron 32 L % Saturation 13 L Transferrin 177 L Ferritin 46 Total Bilirubin Direct Bilirubin Indirect Bilirubin AST ALT Alkaline Phosphatase Troponin I C-Reactive Protein B-Natriuretic Peptide Serum Total Protein Albumin Globulin Albumin/Globulin Ratio Triglycerides Cholesterol LDL Cholesterol, Calc VLDL Cholesterol, Calc HDL Cholesterol Cholesterol/HDL Ratio Lipase Vitamin B12 Folate TSH Blood Type Antibody Screen Crossmatch 07/07/18 07/07/18 07/07/18 07:50 07:50 06:36 WBC RBC Hgb 6.7 L Hct 20.7 L MCV MCH MCHC RDW Plt Count MPV Immature Gran % Seg Neutrophils % Lymphocytes % Monocytes % Eosinophils % Basophils % Neutrophils # Lymphocytes # Monocytes # Eosinophils # Basophils # Nucleated RBCs/100 WBC PT INR APTT Sodium Potassium Chloride Carbon Dioxide BUN Creatinine Est GFR ( Amer) Est GFR (Non-Af Amer) BUN/Creatinine Ratio Glucose Calculated Osmolality Lactic Acid Calcium Phosphorus Magnesium Iron % Saturation Transferrin Ferritin Total Bilirubin Direct Bilirubin Indirect Bilirubin AST ALT Alkaline Phosphatase Troponin I C-Reactive Protein B-Natriuretic Peptide Serum Total Protein Albumin Globulin Albumin/Globulin Ratio Triglycerides Cholesterol LDL Cholesterol, Calc VLDL Cholesterol, Calc HDL Cholesterol Cholesterol/HDL Ratio Lipase Vitamin B12 180 L Folate 15.6 TSH Blood Type A POSITIVE Antibody Screen NEGATIVE Crossmatch See Detail 07/07/18 07/07/18 07/07/18 00:59 00:59 00:59 WBC 12.6 H RBC 2.61 L Hgb 7.8 L D Hct 24.2 L MCV 92.7 MCH 29.9 MCHC 32.2 RDW 15.2 H Plt Count 259 MPV 10.1 Immature Gran % Seg Neutrophils % Lymphocytes % Monocytes % Eosinophils % Basophils % Neutrophils # Lymphocytes # Monocytes # Eosinophils # Basophils # Nucleated RBCs/100 WBC PT 32.9 H INR 2.9 APTT Sodium 140 Potassium 4.1 Chloride 105 Carbon Dioxide 27 BUN 50 H Creatinine 0.70 Est GFR ( Amer) > 60 Est GFR (Non-Af Amer) > 60 BUN/Creatinine Ratio 71 H Glucose 129 H Calculated Osmolality 305 H Lactic Acid Calcium 8.0 L Phosphorus 4.0 Magnesium 1.6 Iron % Saturation Transferrin Ferritin Total Bilirubin Direct Bilirubin Indirect Bilirubin AST ALT Alkaline Phosphatase Troponin I C-Reactive Protein B-Natriuretic Peptide Serum Total Protein Albumin Globulin Albumin/Globulin Ratio Triglycerides 115 Cholesterol 94 LDL Cholesterol, Calc 44 VLDL Cholesterol, Calc 23 HDL Cholesterol 27 L Cholesterol/HDL Ratio 3.5 Lipase Vitamin B12 Folate TSH 1.505 Blood Type Antibody Screen Crossmatch 07/07/18 07/06/18 07/06/18 00:59 18:34 14:30 WBC RBC Hgb Hct MCV MCH MCHC RDW Plt Count MPV Immature Gran % Seg Neutrophils % Lymphocytes % Monocytes % Eosinophils % Basophils % Neutrophils # Lymphocytes # Monocytes # Eosinophils # Basophils # Nucleated RBCs/100 WBC PT INR APTT Sodium Potassium Chloride Carbon Dioxide BUN Creatinine Est GFR ( Amer) Est GFR (Non-Af Amer) BUN/Creatinine Ratio Glucose Calculated Osmolality Lactic Acid 0.8 Calcium Phosphorus Magnesium Iron % Saturation Transferrin Ferritin Total Bilirubin Direct Bilirubin Indirect Bilirubin AST ALT Alkaline Phosphatase Troponin I 0.03 0.03 C-Reactive Protein B-Natriuretic Peptide Serum Total Protein Albumin Globulin Albumin/Globulin Ratio Triglycerides Cholesterol LDL Cholesterol, Calc VLDL Cholesterol, Calc HDL Cholesterol Cholesterol/HDL Ratio Lipase Vitamin B12 Folate TSH Blood Type Antibody Screen Crossmatch 07/06/18 07/06/18 07/06/18 11:06 11:06 11:06 WBC 12.3 H D RBC 3.20 L Hgb 9.5 L Hct 29.4 L MCV 91.9 MCH 29.7 MCHC 32.3 RDW 14.7 H Plt Count 304 MPV 9.7 Immature Gran % 0.7 Seg Neutrophils % 70.9 Lymphocytes % 16.9 Monocytes % 9.1 Eosinophils % 2.0 Basophils % 0.4 Neutrophils # 8.7 Lymphocytes # 2.1 Monocytes # 1.1 Eosinophils # 0.3 Basophils # 0.1 Nucleated RBCs/100 WBC 0.2 H PT INR APTT Sodium 138 Potassium 4.6 Chloride 103 Carbon Dioxide 27 BUN 43 H Creatinine 0.77 Est GFR ( Amer) > 60 Est GFR (Non-Af Amer) > 60 BUN/Creatinine Ratio 56 H Glucose 116 H Calculated Osmolality 298 Lactic Acid Calcium 8.8 Phosphorus Magnesium Iron % Saturation Transferrin Ferritin Total Bilirubin 0.6 Direct Bilirubin 0.2 Indirect Bilirubin 0.4 AST 22 ALT 17 Alkaline Phosphatase 153 H Troponin I < 0.03 C-Reactive Protein 48 H B-Natriuretic Peptide 158 H Serum Total Protein 5.9 L Albumin 3.3 L Globulin 2.6 Albumin/Globulin Ratio 1.3 Triglycerides Cholesterol LDL Cholesterol, Calc VLDL Cholesterol, Calc HDL Cholesterol Cholesterol/HDL Ratio Lipase 12 Vitamin B12 Folate TSH Blood Type Antibody Screen Crossmatch 07/06/18 11:06 WBC RBC Hgb Hct MCV MCH MCHC RDW Plt Count MPV Immature Gran % Seg Neutrophils % Lymphocytes % Monocytes % Eosinophils % Basophils % Neutrophils # Lymphocytes # Monocytes # Eosinophils # Basophils # Nucleated RBCs/100 WBC PT 25.6 H INR 2.3 APTT 34.6 Sodium Potassium Chloride Carbon Dioxide BUN Creatinine Est GFR ( Amer) Est GFR (Non-Af Amer) BUN/Creatinine Ratio Glucose Calculated Osmolality Lactic Acid Calcium Phosphorus Magnesium Iron % Saturation Transferrin Ferritin Total Bilirubin Direct Bilirubin Indirect Bilirubin AST ALT Alkaline Phosphatase Troponin I C-Reactive Protein B-Natriuretic Peptide Serum Total Protein Albumin Globulin Albumin/Globulin Ratio Triglycerides Cholesterol LDL Cholesterol, Calc VLDL Cholesterol, Calc HDL Cholesterol Cholesterol/HDL Ratio Lipase Vitamin B12 Folate TSH Blood Type Antibody Screen Crossmatch - Diagnostic Studies CT scans were personally reviewed as well as endoscopy report. Patient will be recommended palliative radiotherapy to the stomach in 1 treatment. - Assessment Assessment: 77-year-old male presents with an AJCC clinical stage IV melanoma, progressing on systemic therapy and with active bleeding confirmed in the gastric metastatic lesions. Patient will undergo CT simulation today as well as treatment to his whole stomach. We will plan 1 treatment of 8 Gy. Consent was obtained for therapy. Goal of slowing down bleeding was communicated. Patient desires aggressive treatment at this time. Thank you for allowing me to participate in the care of Mr. Drake. Sincerely, Jordy Duarte MD Radiation Oncology [facility] - Patient Problem List (1) Metastatic melanoma Status: Acute Plan: CT A/P with severe metastatic disease of the liver without significant change. Slightly increased severity osseous metastatic disease. There is nodularity along the mucosal surface of the stomach evident, suspicious for metastatic involvement in this location as well. Plan for EGD once INR <1.5.
--- NOTE | 2018-07-08 12:56 | Rad Onc Dictation ---
Radiation Oncology Dictation Date of Service: 07/08/18 - Oncology History Comments: 77-year-old male presents with an AJCC clinical stage IV melanoma, progressing on systemic therapy and with active bleeding confirmed in the gastric metastatic lesions. Biopsy of liver lesion was positive for melanoma. Patient with elevated INR secondary to coumadin as well. Patient receiving blood at this time and being admitted to the ICU. - Procedure Note Comments: CT Simulation and Treatment Planning Note Mr. Drake was brought into the CT Simulation suite and placed in the supine position. A clear wing board was utilized. 3D CT Simulation was required secondary to irregular shape of the target volume, close proximity to critical normal structures. Critical normal structures adjacent to the target volume include the following: spinal cord, kidneys. [employer] software will be utilized to place an isocenter for treatment planning. This will be transferred to the lasers in the treatment room and will be used to jeff the patient for daily positioning. An AP/PA plan will be utilized to deliver 800 cGy in 1 fraction to the stomach. Daily imaging will be required to insure adequate treatment of the target volume and avoidance of critical normal structures with cone-beam CT secondary to the following: close margin between target volume and critical structures. We will align the daily imaging with simulation imaging daily with focus on the spine a nd stomach. This patient will require monitoring in the form of on-treatment visit to assess for progression through treatment, ability to tolerate further treatment, and to assess for treatment-related side effects in order to manage them. Consent has been obtained, and the patient is amenable to treatment. The risks and benefits of radiotherapy have been explained, and the patient is agreeable to proceed. Thank you again for allowing us to participate in the care of this pleasant patient. Sincerely, Jordy Duarte MD Radiation Oncologist [facility] [address] [place] [address]
--- NOTE | 2018-07-08 15:35 | On Treatment Visit ---
- Radiation On Treatment Visit Oncology history: 77-year-old male presents with an AJCC clinical stage IV melanoma, progressing on systemic therapy and with active bleeding confirmed in the gastric metastatic lesions. Biopsy of liver lesion was positive for melanoma. Patient with elevated INR secondary to coumadin as well. Patient receiving blood at this time and being admitted to the ICU. Current treatment: patient completed palliative gastric radiotherapy for bleeding Current dose: 800 of 800 cGy Subjective: Patient tolerated therapy well. Vital Signs: Last Vital Signs Temp 98.2 F 07/08/18 11:20 Pulse 106 07/08/18 11:20 Resp 16 07/08/18 11:20 BP 124/75 07/08/18 11:20 Pulse Ox 100 07/08/18 08:59 ECO Physical exam: General: Alert and oriented, short of breath, pallor evident. Mental Status: Affect appropriate for circumstances - Imaging Imaging completed: PORT FILM Image notes: The above images have been reviewed []. The set up was reviewed. The dosimetry, dose delivery, and treatment parameters have been reviewed. - Assessment Assessment: 77-year-old male presents with an AJCC clinical stage IV melanoma, progressing on systemic therapy and with active bleeding confirmed in the gastric metastatic lesions. Patient completed palliative radiotherapy. He will be admitted to the ICU for observation and further blood products as well as warfarin reversal. Thank you for allowing me to participate in the care of Mr. Drake. Sincerely, Jordy Duarte MD Radiation Oncology [facility] - Patient Problem List (1) Metastatic melanoma Status: Acute Plan: CT A/P with severe metastatic disease of the liver without significant change. Slightly increased severity osseous metastatic disease. There is nodularity along the mucosal surface of the stomach evident, suspicious for metastatic involvement in this location as well. Plan for EGD once INR <1.5.
[2018-07-08] MEDS: FERROUS SULFATE 27 MG PO SCH (15:39)
[2018-07-08] MEDS: Folic Acid 1 MG TABLET PO SCH (15:39)
[2018-07-08] MEDS: Finasteride 5 MG TABLET PO SCH (15:39)
[2018-07-08] MEDS: Thiamine (B-1) 100 MG TABLET PO SCH (15:40)
[2018-07-08] MEDS: Multivit/Ca/Min/Fe/FA 1 TAB TABLET PO SCH (15:40)
[2018-07-08] MEDS: Cyanocobalamin (B-12) 1,000 MCG/ML VIAL SQ SCH (15:40)
[2018-07-08] MEDS: [UNRECOGNIZED DRUG - OTHER] IVPB ONE ×2 (15:51→16:05)
[2018-07-08] MEDS: HUM PROTHROMBIN CPLX IVPB ONE ×2 (15:51→16:05)
[2018-07-08] MEDS: WATER FOR INJ IVPB ONE ×2 (15:51→16:05)
[2018-07-08 16:16] LABS: Basophils % 0.3 %; Eosinophils # 0.1 K/mcL (0.0-0.6); Eosinophils % 1.4 %; Hematocrit 21.5 % (37.5-50.1); Immature Granulocytes % 0.8 % (0-4); Lymphocytes % 12.5 %; Mean Corpuscular HGB Conc 32.6 g/dL (31.6-35.5); Mean Corpuscular Hemoglobin 29.9 pg (28.0-33.3); Mean Corpuscular Volume 91.9 fL (83.0-100.0); Mean Platelet Volume 9.9 fL (9.4-12.4); Monocytes # 0.5 K/mcL (0.0-1.3); Monocytes % 6.4 %; Neutrophils # 6.2 K/mcL (1.6-8.9); Nucleated Red Blood Cells 0.6 /100 WBC (0); Platelet Count 169 K/mcL (140-400); Red Blood Count 2.34 M/mcL (4.19-5.50); Red Cell Distribution Width 15.3 % (11.5-14.5); Segmented Neutrophils % 78.6 %
[2018-07-08 16:22] LABS: INR 1.2; Prothrombin Time 13.8 Seconds (9.4-12.1)
[2018-07-08 16:31] LABS: Albumin 2.8 g/dL (3.5-5.7); BUN/Creatinine Ratio 61 (6-26); Blood Urea Nitrogen 40 mg/dL (8-23); Calcium 8.2 mg/dL (8.6-10.3); Carbon Dioxide 29 mEq/L (23-29); Chloride 110 mEq/L (98-107); Glucose 115 mg/dL (70-105); Osmolality,Calculated 309 (280-300); Phosphorous 3.3 mg/dL (2.7-4.5); Potassium 3.8 mEq/L (3.5-5.1); Sodium 144 mEq/L (136-145); Troponin I < 0.03 ng/mL (< 0.04); eGFR For Non-African Americans > 60 (> 60)
--- NOTE | 2018-07-08 18:06 | Pulmonology Consult Note ---
<Nico Lizarraga W - Last Filed: 07/08/18 18:09> Date of Encounter: 07/08/18 Time of Encounter: 18:09 Medications and Allergies Allopurinol [Zyloprim 300 MG] 300 mg PO DAILY 05/04/18 [History] Atorvastatin [Lipitor] 20 mg PO DAILY 05/04/18 [History] Budesonide/Formoterol 80/4.5 [Symbicort 80/4.5] 2 puff IH BID PRN 05/04/18 [History] Digoxin [Lanoxin] 0.125 mg PO DAILY 05/04/18 [History] Diltiazem CD (24hr) [Cardizem CD] 240 mg PO DAILY 05/04/18 [History] Finasteride [Proscar] 5 mg PO DAILY 05/04/18 [History] Ipratropium/Albuterol Neb [Duoneb] 3 ml IH Q6H 05/04/18 [History] Multivit-Min/FA/Lycopen/Lutein [Centrum Silver Tablet] 1 tab PO DAILY 05/04/18 [History] Omeprazole [PriLOSEC] 20 mg PO DAILY 05/04/18 [History] Saw [place] 160 mg PO BID 05/04/18 [History] Tamsulosin [Flomax] 0.4 mg PO DAILY 05/04/18 [History] Warfarin [Coumadin] 6 mg PO DAILY 05/04/18 [History] Ferrous Sulfate [High Potency Iron] 27 mg PO DAILY 05/05/18 [History] Metoprolol Tartrate 50 mg PO BID 05/05/18 [History] Potassium Chloride [K-Tab ER] 20 meq PO Q48H 05/05/18 [History] Mirtazapine [Remeron] 15 mg PO HS #30 tablet 06/08/18 [Rx] Albuterol Sulfate [Proair Hfa] 1 puff IH Q6H PRN 07/06/18 [History] Binimetinib [Mektovi] 3 tab PO BID #180 tablet 07/08/18 [Rx] Encorafenib [Braftovi] 6 cap PO DAILY #180 capsule 07/08/18 [Rx] Allergy/AdvReac Type Severity Reaction Status Date / Time tape AdvReac Rash Uncoded 07/06/18 10:52 All Systems: The remainder of the systems were reviewed and are negative Physical Examination Vital Signs: Vital Signs, Last 4 Hours Temp Pulse Resp BP Pulse Ox 07/08/18 17:20 116 26 135/71 28 07/08/18 16:24 94 23 133/67 100 07/08/18 15:57 17 100 07/08/18 15:37 98.4 F 107 14 133/67 98 Results - Laboratory Findings CBC and BMP: 07/08/18 16:00 07/08/18 16:00 PT/INR, D-dimer PT 13.8 Seconds (9.4-12.1) H 07/08/18 16:00 Abnormal lab findings: Abnormal lab results WBC 12.7 K/mcL (4.3-11.1) H 07/08/18 02:33 RBC 2.34 M/mcL (4.19-5.50) L 07/08/18 16:00 Hgb 7.0 g/dL (12.9-16.9) L 07/08/18 16:00 Hct 21.5 % (37.5-50.1) L 07/08/18 16:00 RDW 15.3 % (11.5-14.5) H 07/08/18 16:00 Nucleated RBCs/100 WBC 0.6 /100 WBC (0) H 07/08/18 16:00 PT 13.8 Seconds (9.4-12.1) H 07/08/18 16:00 Chloride 110 mEq/L (98-107) H 07/08/18 16:00 BUN 40 mg/dL (8-23) H 07/08/18 16:00 0.66 mg/dL (0.70-1.30) L 07/08/18 16:00 61 (6-26) H 07/08/18 16:00 Glucose 115 mg/dL (70-105) H 07/08/18 16:00 POC Glucose 116 mg/dL (70-99) H 07/08/18 15:08 309 (280-300) H 07/08/18 16:00 Calcium 8.2 mg/dL (8.6-10.3) L 07/08/18 16:00 Iron 32 mcg/dL (65-175) L 07/07/18 07:50 % Saturation 13 % (20-55) L 07/07/18 07:50 177 mg/dL (203-362) L 07/07/18 07:50 153 Units/L (34-104) H 07/06/18 11:06 48 mg/L (Less than 10) H 07/06/18 11:06 B-Natriuretic Peptide 158 pg/mL (Less than 100) H 07/06/18 11:06 4.9 g/dL (6.4-8.9) L 07/08/18 02:33 2.8 g/dL (3.5-5.7) L 07/08/18 16:00 2.3 g/dL (2.4-3.5) L 07/08/18 02:33 27 mg/dL (40-59) L 07/07/18 00:59 Vitamin B12 180 pg/mL (250-1100) L 07/07/18 07:50 Crossmatch See Detail 07/08/18 10:40 - Microbiology Findings Microbiology Findings: Microbiology, Last 48 Hours 07/07/18 05:45 Sputum Culture - Final Sputum 07/07/18 06:10 Legionella Antigen - Final Urine,Clean Catch Streptococcus pneumoniae Antigen (M - Final 07/06/18 14:30 Blood Culture - Preliminary Peripheral Venipuncture Culture is incubating and being continuously monitored for growth. Final report to follow. 07/06/18 14:30 Blood Culture - Preliminary Peripheral Venipuncture Culture is incubating and being continuously monitored for growth. Final report to follow. - Clinical Findings Intake & Output: Intake & Output 07/08/18 07/08/18 07/08/18 07:59 15:59 23:59 Intake Total 550 / 1590 1040 / 1590 Balance 550 / 1590 1040 / 1590 Weight 101.3 kg Consult Discharge Plan - Plan Referrals: Shaila Ayon MD [Primary Care Provider] - - Attending Attestation I examined this patient and my medical decision-making was reviewed with the Resident Physician. I agree with the documented findings, disposition and treatment plan as described except to the extent set forth below. We independently had [id number] contact with the patient Patient seen and examined at bedside Labs, radiology, chart personally reviewed. Impression/Recs: Severe acute blood loss anemia Gastrointestinal hemorrhage Warfarin induced Coagulopathy Metastatic malignant melanoma - status post emergent radiation Rate controlled atrial fibrillation -Transfuse for goal hemoglobin greater than 7 -Appreciate GI and hematology recommendations -INR reversal has been successful -Monitor in ICU overnight -We will obtain Peripheral access with the EP IVs - can consider placement of Cordis introducer based upon clinical course but at this point very stable and no further episodes of melena post endoscopy -Mechanical DVT prophylaxis -Palliative care consultation <Rigo Hays - Last Filed: 07/08/18 19:03> Date of Encounter: 07/08/18 Assessment and Plan (1) Acute blood loss anemia Current Visit: Yes Status: Acute -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 Multiple probable mets with active bleeding found with clips and hemospray lisa lied -Emergent gastric radiation 07/08/18: Palliative in nature in attempt to stop gastric bleed -Will monitor h&h and transfuse PRBCs with hgb <7 (2) GI bleed Current Visit: Yes Status: Acute -As above Qualifiers: GI bleed type/associated pathology: unspecified gastrointestinal hemorrhage type Qualified Code(s): K92.2 - Gastrointestinal hemorrhage, unspecified (3) Metastatic melanoma Current Visit: Yes Status: Chronic -Known hx metastatic melanoma with active systemic treatment -Heme/onc on board for management (4) Atrial fibrillation with RVR Current Visit: Yes Status: Chronic -Hx of pAfib anticoagulated at home with warfarin -Anticoagulation reversed 2/2 GI bleed (5) Elevated INR Current Visit: Yes Status: Acute INR 2.3 on arrival -INR peak 3.2 -Reversed with vit k and ffp -Repeat INR 1.2 (6) DVT prophylaxis Current Visit: No Status: Acute scds History of Present Illness Consult date: 07/08/18 Requesting physician: Alis Fernando Reason for consult: other (Severe anemia secondary to GI bleed) Chief complaint: Anemia History of present illness: 77 year old male with metastatic melanoma actively treated, pAfib anticoagulated on warfarin who arrived to the ED 2 days ago with chest pressure and dyspnea. He was admitted for acute respiratory failure and to rule out ACS. During admission had melena, acute drop in hgb from 9.5 on arrival to 5.9 yesterday and elevated INR. He had EGD today and then taken to have gastric radiotherapy for bleeding. He was brought to the ICU for closer monitoring while transfusing blood products Past Med Surg Social Fam HX - Past Medical History Medical history: atrial fibrillation, cancer, DVT, hypertension Additional medical history: partial lung removal, melanoma Psychiatric history: no psych history - Past Surgical History Additional surgical history: partial lung removal - Social History Smoking Status: Former smoker Smokeless Tobacco Status: No Alcohol use: heavy, recent Drug use: none - Family History Father Living Status: Hx Family Respiratory Disorders: Yes (COPD) Hx Family Cancer: Yes Hx Family Medical Disorders: Yes All Systems: The remainder of the systems were reviewed and are negative - Constitutional Constitutional: fatigue - Cardiovascular Cardiovascular: dyspnea, no chest pain, no diaphoresis, no lightheadedness, no orthopnea, no palpitations, no syncope - Respiratory Respiratory: dyspnea - Gastrointestinal Gastrointestinal: melena Physical Examination Vital Signs: Vital Signs, Last 4 Hours Temp Pulse Resp BP Pulse Ox 07/08/18 17:20 116 26 135/71 28 07/08/18 16:24 94 23 133/67 100 07/08/18 15:57 17 100 07/08/18 15:37 98.4 F 107 14 133/67 98 General appearance: no acute distress, alert Eyes: nonicteric ENT: oropharynx moist Effort: normal Auscultation: bilateral: clear Cardiovascular: irregular rhythm Gastrointestinal: normoactive bowel sounds, soft, non-tender, non-distended Integumentary: normal Extremities: no cyanosis, no edema normal mental status, non-focal exam mood appropriate, affect normal Results - Laboratory Findings CBC and BMP: 07/08/18 16:00 07/08/18 16:00 PT/INR, D-dimer PT 13.8 Seconds (9.4-12.1) H 07/08/18 16:00 Abnormal lab findings: Abnormal lab results WBC 12.7 K/mcL (4.3-11.1) H 07/08/18 02:33 RBC 2.34 M/mcL (4.19-5.50) L 07/08/18 16:00 Hgb 7.0 g/dL (12.9-16.9) L 07/08/18 16:00 Hct 21.5 % (37.5-50.1) L 07/08/18 16:00 RDW 15.3 % (11.5-14.5) H 07/08/18 16:00 Nucleated RBCs/100 WBC 0.6 /100 WBC (0) H 07/08/18 16:00 PT 13.8 Seconds (9.4-12.1) H 07/08/18 16:00 Chloride 110 mEq/L (98-107) H 07/08/18 16:00 BUN 40 mg/dL (8-23) H 07/08/18 16:00 0.66 mg/dL (0.70-1.30) L 07/08/18 16:00 61 (6-26) H 07/08/18 16:00 Glucose 115 mg/dL (70-105) H 07/08/18 16:00 POC Glucose 116 mg/dL (70-99) H 07/08/18 15:08 309 (280-300) H 07/08/18 16:00 Calcium 8.2 mg/dL (8.6-10.3) L 07/08/18 16:00 Iron 32 mcg/dL (65-175) L 07/07/18 07:50 % Saturation 13 % (20-55) L 07/07/18 07:50 177 mg/dL (203-362) L 07/07/18 07:50 153 Units/L (34-104) H 07/06/18 11:06 48 mg/L (Less than 10) H 07/06/18 11:06 B-Natriuretic Peptide 158 pg/mL (Less than 100) H 07/06/18 11:06 4.9 g/dL (6.4-8.9) L 07/08/18 02:33 2.8 g/dL (3.5-5.7) L 07/08/18 16:00 2.3 g/dL (2.4-3.5) L 07/08/18 02:33 27 mg/dL (40-59) L 07/07/18 00:59 Vitamin B12 180 pg/mL (250-1100) L 07/07/18 07:50 Crossmatch See Detail 07/08/18 10:40 - Microbiology Findings Microbiology Findings: Microbiology, Last 48 Hours 07/07/18 05:45 Sputum Culture - Final Sputum 07/07/18 06:10 Legionella Antigen - Final Urine,Clean Catch Streptococcus pneumoniae Antigen (M - Final 07/06/18 14:30 Blood Culture - Preliminary Peripheral Venipuncture Culture is incubating and being continuously monitored for growth. Final report to follow. 07/06/18 14:30 Blood Culture - Preliminary Peripheral Venipuncture Culture is incubating and being continuously monitored for growth. Final report to follow. - Clinical Findings Intake & Output: Intake & Output 07/08/18 07/08/18 07/08/18 07:59 15:59 23:59 Intake Total 550 / 1590 1040 / 1590 Balance 550 / 1590 1040 / 1590 Weight 101.3 kg
[2018-07-08] MEDS ORDERED: Acetaminophen IV 500 MG/50 ML INFUS..BTL IVPB ONE (20:19)
[2018-07-08] MEDS: Mirtazapine 15 MG TABLET PO SCH (21:30)
[2018-07-08 23:17] LABS: Hematocrit 23.6 % (37.5-50.1); Hemoglobin 7.6 g/dL (12.9-16.9)
[2018-07-08 23:25] LABS: INR 1.2
[2018-07-09] MEDS: Ipratropium Neb 0.5 MG NEBULIZER IH SCH ×7 (01:14→23:43)
[2018-07-09] MEDS: Levalbuterol Neb 1.25 MG/3 ML IH SCH ×4 (04:19→23:43)
[2018-07-09 04:23] LABS: Basophils % 0.4 %; Eosinophils # 0.2 K/mcL (0.0-0.6); Eosinophils % 2.5 %; Hematocrit 23.9 % (37.5-50.1); Hemoglobin 7.7 g/dL (12.9-16.9); Immature Granulocytes % 0.5 % (0-4); Lymphocytes # 0.6 K/mcL (0.6-4.6); Lymphocytes % 8.5 %; Mean Corpuscular HGB Conc 32.2 g/dL (31.6-35.5); Mean Corpuscular Hemoglobin 29.4 pg (28.0-33.3); Mean Corpuscular Volume 91.2 fL (83.0-100.0); Mean Platelet Volume 9.6 fL (9.4-12.4); Monocytes # 0.5 K/mcL (0.0-1.3); Monocytes % 6.6 %; Neutrophils # 6.1 K/mcL (1.6-8.9); Nucleated Red Blood Cells 0.5 /100 WBC (0); Platelet Count 154 K/mcL (140-400); Red Blood Count 2.62 M/mcL (4.19-5.50); Red Cell Distribution Width 15.8 % (11.5-14.5); Segmented Neutrophils % 81.5 %
[2018-07-09 04:42] LABS: BUN/Creatinine Ratio 44 (6-26); Blood Urea Nitrogen 28 mg/dL (8-23); Calcium 7.7 mg/dL (8.6-10.3); Carbon Dioxide 28 mEq/L (23-29); Chloride 113 mEq/L (98-107); Glucose 104 mg/dL (70-105); Osmolality,Calculated 308 (280-300); Potassium 3.6 mEq/L (3.5-5.1); Sodium 146 mEq/L (136-145); eGFR For Non-African Americans > 60 (> 60)
--- NOTE | 2018-07-09 06:35 | Pulmonology Progress Note ---
Date of Encounter: 07/09/18 Time of Encounter: 06:35 Assessment and Plan (1) Metastatic melanoma Current Visit: Yes Status: Chronic Patient has evidence of malignant melanoma with gastric involvement likely leading to bleeding he is status post emergent radiation therapy for this oncology following palliative care is also been consulted for goals of care as overall prognosis appears poor (2) Elevated INR Current Visit: Yes Status: Acute This is been corrected with FFP and vitamin K holding anticoagulation now for A. fib because of bleeding risk (3) Acute blood loss anemia Current Visit: Yes Status: Acute Stable overnight after transfusion continue to monitor transfuse for goal hemoglobin greater than 7 (4) GI bleed Current Visit: Yes Status: Acute This is secondary to metastatic disease and has been stable for approximately 24 hours after correction of INR will need to be continued to monitor on telemetry but is stable now for transfer to the [facility] telemetry for ongoing care Qualifiers: GI bleed type/associated pathology: unspecified gastrointestinal hemorrhage type Qualified Code(s): K92.2 - Gastrointestinal hemorrhage, unspecified (5) Afib Current Visit: Yes Status: Acute Mildly tachycardic today which is secondary to beta cat withdrawal and will restart his home dose of beta cat otherwise hemodynamically stable continue telemetry monitoring Transfer second floor telemetry 30 spoke to the hospitalist Dr. Snell who will assume care of the patient henceforth Qualifiers: Atrial fibrillation type: chronic Qualified Code(s): I48.2 - Chronic atrial fibrillation Subjective Principal diagnosis: GI Bleeding Interval history: Mr. Drake is done well overnight. No more evidence of active bleeding. No his only complaint today is that his mouth is very dry Objective PUL Vital signs: Last Vital Signs Temp 98.9 F 07/09/18 03:16 Pulse 110 07/09/18 06:00 Resp 26 07/09/18 06:00 BP 140/62 07/09/18 06:00 Pulse Ox 98 07/09/18 06:00 General appearance: no acute distress Eyes: nonicteric ENT: oropharynx dry Effort: normal Auscultation: bilateral: clear Cardiovascular: irregular rhythm Gastrointestinal: normoactive bowel sounds, soft, non-tender Integumentary: normal Extremities: no edema Musculoskeletal: no deformities normal mental status, non-focal exam mood appropriate Results - Laboratory Findings CBC and BMP: 07/09/18 09:24 07/09/18 04:06 PT/INR, D-dimer PT 13.0 Seconds (9.4-12.1) H 07/08/18 22:00 Abnormal lab findings: Abnormal lab results WBC 12.7 K/mcL (4.3-11.1) H 07/08/18 02:33 RBC 2.62 M/mcL (4.19-5.50) L 07/09/18 04:06 Hgb 7.7 g/dL (12.9-16.9) L 07/09/18 04:06 Hct 23.9 % (37.5-50.1) L 07/09/18 04:06 RDW 15.8 % (11.5-14.5) H 07/09/18 04:06 Nucleated RBCs/100 WBC 0.5 /100 WBC (0) H 07/09/18 04:06 PT 13.0 Seconds (9.4-12.1) H 07/08/18 22:00 Sodium 146 mEq/L (136-145) H 07/09/18 04:06 Chloride 113 mEq/L (98-107) H 07/09/18 04:06 BUN 28 mg/dL (8-23) H 07/09/18 04:06 0.64 mg/dL (0.70-1.30) L 07/09/18 04:06 44 (6-26) H 07/09/18 04:06 Glucose 115 mg/dL (70-105) H 07/08/18 16:00 POC Glucose 116 mg/dL (70-99) H 07/08/18 15:08 308 (280-300) H 07/09/18 04:06 Calcium 7.7 mg/dL (8.6-10.3) L 07/09/18 04:06 Iron 32 mcg/dL (65-175) L 07/07/18 07:50 % Saturation 13 % (20-55) L 07/07/18 07:50 177 mg/dL (203-362) L 07/07/18 07:50 153 Units/L (34-104) H 07/06/18 11:06 48 mg/L (Less than 10) H 07/06/18 11:06 B-Natriuretic Peptide 158 pg/mL (Less than 100) H 07/06/18 11:06 4.9 g/dL (6.4-8.9) L 07/08/18 02:33 2.8 g/dL (3.5-5.7) L 07/08/18 16:00 2.3 g/dL (2.4-3.5) L 07/08/18 02:33 27 mg/dL (40-59) L 07/07/18 00:59 Vitamin B12 180 pg/mL (250-1100) L 07/07/18 07:50 Crossmatch See Detail 07/08/18 10:40 - Microbiology Findings Microbiology Findings: Microbiology, Last 48 Hours 07/07/18 05:45 Sputum Culture - Final Sputum 07/07/18 06:10 Legionella Antigen - Final Urine,Clean Catch Streptococcus pneumoniae Antigen (M - Final - Clinical Findings Intake & Output: Intake & Output 07/08/18 07/08/18 07/09/18 15:59 23:59 07:59 Intake Total 1040 / 2283 693 / 2283 Output Total 175 / 175 425 / 425 Balance 1040 / 2108 518 / 2108 -425 / -425 Weight 102.7 kg Consult Discharge Plan - Plan Referrals: Shaila Ayon MD [Primary Care Provider] -
[2018-07-09] MEDS: Pantoprazole 40 MG in 0.9 % Sodium Chloride Mini Bag 100 ML IVC SCH ×5 (07:15→23:55)
[2018-07-09] MEDS: FERROUS SULFATE 27 MG PO SCH (08:44)
[2018-07-09] MEDS: Cyanocobalamin (B-12) 1,000 MCG/ML VIAL SQ SCH (08:51)
[2018-07-09] MEDS: Folic Acid 1 MG TABLET PO SCH (08:53)
[2018-07-09] MEDS: Thiamine (B-1) 100 MG TABLET PO SCH (08:54)
[2018-07-09] MEDS: Multivit/Ca/Min/Fe/FA 1 TAB TABLET PO SCH (08:54)
[2018-07-09] MEDS: Finasteride 5 MG TABLET PO SCH (08:54)
[2018-07-09 09:44] LABS: Basophils % 0.3 %; Eosinophils # 0.1 K/mcL (0.0-0.6); Hematocrit 23.9 % (37.5-50.1); Hemoglobin 7.7 g/dL (12.9-16.9); Immature Granulocytes % 0.7 % (0-4); Lymphocytes # 0.7 K/mcL (0.6-4.6); Lymphocytes % 9.1 %; Mean Corpuscular HGB Conc 32.2 g/dL (31.6-35.5); Mean Corpuscular Hemoglobin 29.5 pg (28.0-33.3); Mean Corpuscular Volume 91.6 fL (83.0-100.0); Mean Platelet Volume 9.5 fL (9.4-12.4); Monocytes # 0.5 K/mcL (0.0-1.3); Monocytes % 7.3 %; Neutrophils # 5.7 K/mcL (1.6-8.9); Nucleated Red Blood Cells 0.3 /100 WBC (0); Platelet Count 161 K/mcL (140-400); Red Blood Count 2.61 M/mcL (4.19-5.50); Red Cell Distribution Width 15.9 % (11.5-14.5); Segmented Neutrophils % 80.6 %
[2018-07-09 16:20] LABS: Hematocrit 25.9 % (37.5-50.1); Hemoglobin 8.1 g/dL (12.9-16.9)
[2018-07-09] MEDS ORDERED: Budesonide/Formoterol 80/4.5 MDI IH PRN (18:13)
[2018-07-09] MEDS ORDERED: Naloxone 0.4 MG/ML INJ IVP PRN (18:13)
[2018-07-09] MEDS: Mirtazapine 15 MG TABLET PO SCH (20:27)
[2018-07-09] MEDS ORDERED: Melatonin 3 MG TABLET PO PRN (20:30)
[2018-07-09 22:00] LABS: Hematocrit 24.2 % (37.5-50.1); Hemoglobin 7.7 g/dL (12.9-16.9)
[2018-07-09] MEDS: 0.9 % Sodium Chloride 1,000 ML IVC SCH (23:55)
[2018-07-10] MEDS: Pantoprazole 40 MG in 0.9 % Sodium Chloride Mini Bag 100 ML IVC SCH ×5 (03:36→23:35)
[2018-07-10] MEDS: Levalbuterol Neb 1.25 MG/3 ML IH SCH ×4 (03:48→20:25)
[2018-07-10] MEDS: Ipratropium Neb 0.5 MG NEBULIZER IH SCH ×5 (03:48→20:25)
[2018-07-10 05:28] LABS: Basophils % 0.3 %; Eosinophils # 0.2 K/mcL (0.0-0.6); Eosinophils % 2.3 %; Hematocrit 23.4 % (37.5-50.1); Hemoglobin 7.5 g/dL (12.9-16.9); Immature Granulocytes % 0.6 % (0-4); Immature Platelets 6.8 % (1.1-6.1); Lymphocytes # 0.8 K/mcL (0.6-4.6); Lymphocytes % 10.3 %; Mean Corpuscular HGB Conc 32.1 g/dL (31.6-35.5); Mean Corpuscular Volume 93.6 fL (83.0-100.0); Mean Platelet Volume 10.7 fL (9.4-12.4); Monocytes # 0.6 K/mcL (0.0-1.3); Monocytes % 7.8 %; Neutrophils # 6.2 K/mcL (1.6-8.9); Platelet Count 139 K/mcL (140-400); Red Cell Distribution Width 15.9 % (11.5-14.5); Segmented Neutrophils % 78.7 %
[2018-07-10 05:42] LABS: BUN/Creatinine Ratio 27 (6-26); Blood Urea Nitrogen 17 mg/dL (8-23); Calcium 8.1 mg/dL (8.6-10.3); Carbon Dioxide 26 mEq/L (23-29); Chloride 106 mEq/L (98-107); Glucose 113 mg/dL (70-105); Osmolality,Calculated 290 (280-300); Potassium 3.5 mEq/L (3.5-5.1); Sodium 139 mEq/L (136-145); eGFR For Non-African Americans > 60 (> 60)
[2018-07-10] MEDS: Multivit/Ca/Min/Fe/FA 1 TAB TABLET PO SCH (08:36)
[2018-07-10] MEDS: Thiamine (B-1) 100 MG TABLET PO SCH (08:36)
[2018-07-10] MEDS: Folic Acid 1 MG TABLET PO SCH (08:37)
[2018-07-10] MEDS: Finasteride 5 MG TABLET PO SCH (08:37)
[2018-07-10] MEDS: FERROUS SULFATE 27 MG PO SCH (08:37)
[2018-07-10] MEDS: Cyanocobalamin (B-12) 1,000 MCG/ML VIAL SQ SCH (08:40)
[2018-07-10] MEDS: Diltiazem CD (24hr) 240 MG CAPSULE PO SCH (10:23)
--- NOTE | 2018-07-10 12:31 | Internal Med Progress Note ---
Hospitalist Progress Note - Encounter Date of Encounter: 07/10/18 Time of Encounter: 09:25 - Subjective Interval History: Patient was seen and examined at bedside. Denies any melena or hematemesis or hematochezia. Has not had a bowel movement however since he has been transferred from the ICU. Denies abdominal pain, nausea or vomiting. Has had no fever or chills. Continues to be out of breath and I discussed that this most likely secondary to multiple metastatic nodules in bilateral lungs along with anemia. He was encouraged to ambulate around the room and use his incentive spirometer. - Exam Vitals: Temp Pulse Resp BP Pulse Ox 98.1 F 95 20 110/72 94 07/10/18 11:20 07/10/18 11:20 07/10/18 11:25 07/10/18 11:20 07/10/18 11:25 Exam: General: Patient is alert, oriented, not in distress Head: atraumatic, normocephalic, Eye: normal appearance, PERRL, no scleral icterus, no conjunctival injection ENT: mucous membranes moist, normal external ear exam Neck: normal inspection, trachea midline, full ROM, no carotid bruits Chest: normal inspection, symmetric chest rise Respiratory: Tachypneic, decreased breath sounds bilaterally, crackles in the posterior lung tamayo bilaterally, no wheezing Cardiovascular: Irregularly irregular s1 and s2 No clicks, rubs, gallops, or murmors. Abdomen: Bowel sounds present normoactive x-4 quadrants. Abdomen is soft, nondistended. no Epigastric tenderness. No guarding or rebound. No organomegaly noted, obese musculoskeletal: Spontaneously moving all extremities. no edema, no calf tenderness Skin: warm, dry, intact. Neuro: Alert and oriented x4. No focal deficit Psych: Patient's affect is normal - Assessment and Plan (1) GI bleed Current Visit: Yes Status: Acute Assessment and Plan: s/p EGD on 07/08 with bleeding polyps ? METS was transferred to ICU on 07/07 and transferred back to floor on 07/09 IV protonix drip GI onboard oncology on board s/p radiation on 07/07 continue to monitor H/H closely BID and transfuse below 8 ( cardiac history) S/P 6 PRBC, 3FFP, vitamin k and kcentra avoid antiplatelets, anticoagulation and NSAIDS continuous tele vitals as per nursing clear liquids (2) Acute blood loss anemia Current Visit: Yes Status: Acute Assessment and Plan: secondary to GIB management as above (3) Metastatic melanoma Current Visit: Yes Status: Chronic Assessment and Plan: oncology on board Received C3 Ipilumumab (Yervoy) and Nivolumab (Opdivo) 07/05/18. CXR with worsening mets to the lung radiation as per oncology on 07/08/18 CT chest, abdomen and pelvis: Chest: No evidence of pulmonary embolism or other acute process. Progression of extensive pulmonary metastatic disease. Mild progression of osseous metastatic disease. Abdomen/pelvis: No acute abnormality. Severe metastatic disease of the liver without significant change. Slightly increased severity osseous metastatic disease. There is nodularity along the mucosal surface of the stomach evident, suspicious for metastatic involvement in this location as well. (4) Atrial fibrillation with RVR Current Visit: Yes Status: Chronic Assessment and Plan: most likley secondary to acute blood loss anemia from GIB cardizem drip stopped treating underlying cause which is anemia home medication BB, cardizem and digoxn restarted telemetry TSH/T4 and cortisol WNL. limited TTE with EF of 55% holding coumadin - risk and benefits discussed with patient and he understands TTE: Limited study to evaluate LVEF LVEF 55%. Moderate concentric left ventricular hypertrophy. Technically sub-optimal due to clinical status.Atrial fibrillation with rapid ventricular response. (5) Elevated INR Current Visit: Yes Status: Acute Assessment and Plan: resolved s/p Kcentra (6) Goals of care, counseling/discussion Current Visit: Yes Status: Acute Assessment and Plan: i discussed goals of care with patient for 15 minutes. he wishes to be full code. i discussed CT scan findings with worsening metastatic disease palliative care consulted for goals of care prognosis poor (7) Vitamin B12 deficiency Current Visit: Yes Status: Acute Assessment and Plan: continue with b12 supplementations (8) DVT prophylaxis Current Visit: No Status: Acute Assessment and Plan: scds DVT Prophylaxis: scds - Time Spent with Patient Total time spent is greater than 50% in coordination of care (as documented) at patient's floor/unit and/or counseling patient: Internal Medicine: Result - Labs CBC & Chem 7: 07/10/18 05:09 07/10/18 05:09 Labs: Short CBC 07/09/18 07/09/18 07/10/18 Range/Units 16:00 22:00 05:09 WBC 7.9 (4.3-11.1) K/mcL Hgb 8.1 L 7.7 L 7.5 L (12.9-16.9) g/dL Hct 25.9 L 24.2 L 23.4 L (37.5-50.1) % Plt Count 139 L (140-400) K/mcL Neutrophils # 6.2 (1.6-8.9) K/mcL BMP 07/10/18 05:09 Sodium 139 Potassium 3.5 Chloride 106 Carbon Dioxide 26 BUN 17 Creatinine 0.64 L Glucose 113 H Calcium 8.1 L - ABG Interpretation ABG results: PT/INR, D-dimer PT 13.0 Seconds (9.4-12.1) H 07/08/18 22:00 - VTE Documentation of Mechanical Device: Intermittent pneumatic compression device Consult Discharge Plan - Plan Referrals: Shaila Ayon MD [Primary Care Provider] - (1) GI bleed Qualifiers: GI bleed type/associated pathology: unspecified gastrointestinal hemorrhage type Qualified Code(s): K92.2 - Gastrointestinal hemorrhage, unspecified
[2018-07-10] MEDS ORDERED: Potassium Chloride Elixir 20 MEQ/15 ML UDC PO ONE (12:40)
[2018-07-10 16:14] LABS: Hematocrit 24.4 % (37.5-50.1); Hemoglobin 7.6 g/dL (12.9-16.9)
[2018-07-10] MEDS: Mirtazapine 15 MG TABLET PO SCH (20:47)
[2018-07-11] MEDS: Ipratropium Neb 0.5 MG NEBULIZER IH SCH ×6 (00:18→20:02)
[2018-07-11] MEDS: Acetaminophen 325 MG TABLET PO PRN (04:15)
[2018-07-11] MEDS: Levalbuterol Neb 1.25 MG/3 ML IH SCH ×4 (04:20→20:02)
[2018-07-11 04:38] LABS: Hematocrit 22.6 % (37.5-50.1); Hemoglobin 7.1 g/dL (12.9-16.9); Mean Corpuscular HGB Conc 31.4 g/dL (31.6-35.5); Mean Corpuscular Hemoglobin 29.2 pg (28.0-33.3); Mean Platelet Volume 9.8 fL (9.4-12.4); Platelet Count 201 K/mcL (140-400); Red Blood Count 2.43 M/mcL (4.19-5.50)
[2018-07-11] MEDS: Pantoprazole 40 MG in 0.9 % Sodium Chloride Mini Bag 100 ML IVC SCH (04:45)
[2018-07-11 04:59] LABS: BUN/Creatinine Ratio 20 (6-26); Blood Urea Nitrogen 12 mg/dL (8-23); Calcium 7.8 mg/dL (8.6-10.3); Carbon Dioxide 26 mEq/L (23-29); Chloride 108 mEq/L (98-107); Glucose 111 mg/dL (70-105); Magnesium 1.9 mg/dL (1.6-2.6); Osmolality,Calculated 290 (280-300); Potassium 4.1 mEq/L (3.5-5.1); Sodium 140 mEq/L (136-145); eGFR For Non-African Americans > 60 (> 60)
[2018-07-11] MEDS: FERROUS SULFATE 27 MG PO SCH (09:16)
[2018-07-11] MEDS: Multivit/Ca/Min/Fe/FA 1 TAB TABLET PO SCH (09:24)
[2018-07-11] MEDS: Diltiazem CD (24hr) 240 MG CAPSULE PO SCH (09:24)
[2018-07-11] MEDS: Thiamine (B-1) 100 MG TABLET PO SCH (09:24)
[2018-07-11] MEDS: *HR* Digoxin 0.125 MG TABLET PO SCH (09:25)
[2018-07-11] MEDS: Cyanocobalamin (B-12) 1,000 MCG/ML VIAL SQ SCH (09:25)
[2018-07-11] MEDS: Folic Acid 1 MG TABLET PO SCH (09:25)
[2018-07-11] MEDS: Finasteride 5 MG TABLET PO SCH (09:26)
--- NOTE | 2018-07-11 10:37 | Oncology Inp Progress Note ---
<Rosalia Blake M - Last Filed: 07/11/18 17:18> Date of Encounter: 07/11/18 Time of Encounter: 09:25 (1) Metastatic melanoma Current Visit: Yes Status: Chronic Assessment and plan: Received C3 Ipilumumab (Yervoy) and Nivolumab (Opdivo) 07/05/18. TSH/T4 and cortisol WNL. CXR: increased size of pulmonary nodules. Plan: Hold treatment. Disease progression confirmed, will consider treatment change to BRAF inhibitor. This will be started in the outpatient setting. (2) Afib Current Visit: Yes Status: Acute Assessment and plan: Atrial fibrillation with RVR Received Cardizem 20 mg bolus in ED. HR 100-120s per documented vital signs. Chronic afib. Home medication: Coumadin PO daily on hold. Plan: Cardizem PO. HR 100-120s Continue to hold Coumadin. Qualifiers: Atrial fibrillation type: chronic Qualified Code(s): I48.2 - Chronic atrial fibrillation (3) Acute respiratory failure with hypoxia Current Visit: Yes Status: Acute Assessment and plan: Acute onset of dyspnea in the presence of metastatic cancer. Requiring oxygen supplementation. CTA negative. Slight improvement in dyspnea. Oxygen at 2L per NC (reduced from 3L on admission). Plan: Continue to monitor. Wean oxygen per respiratory/nursing. (4) Acute blood loss anemia Current Visit: Yes Status: Acute Assessment and plan: Hgb 7.1 today. Denies melena, hematochezia, of hematuria. No BM since EGD Iron-deficiency noted. Plan: Transfuse 1 unit pRBC's. Continue to monitor H+H. Administer Venofer 300 mg IV x 1 Oncology: Subj Interval history: Brad notes that he is doing a little better today. He feels it is easier to breath today, not gasping while talking. He states that he was able to get up to the chair this morning. He denies fever or chills. Denies nausea, vomiting, diarrhea, or abdominal pain. He notes that he has not had a bowel movement since his EGD. Discussed that hemoglobin did drop more (Hgb 7.1) and he will receive another pRBC transfusion. He voices that he would like to leave the floor and visit with a friend that is also inpatient. per hospitalist, patient was cleared to leave the floor. VS stable. - Additional findings Additional findings: General: Alert and oriented, well appearing. Mental Status: Affect appropriate for circumstances Skin: Scattered ecchymosis on upper extremities. Lungs: Clear to auscultation and percussion bilaterally. Cardiovascular: Irregular rate and rhythm. Tachycardic Abdomen: Soft, nontender; Extremities: No edema. No calf swelling or tenderness. No joint deformity. Neurologic: Alert, cranial nerves II-XII intact; no focal weakness or sensory abnormalities. Oncology: Obj Data - Labs CBC & Chem 7: 07/11/18 04:22 07/11/18 04:22 Consult Discharge Plan - Plan Referrals: Shaila Ayon MD [Primary Care Provider] - Inpatient Charges Provider: Dr. Moisés Carroll <Emy Carrollmsi - Last Filed: 07/11/18 17:29> Date of Encounter: 07/11/18 Oncology: Obj Data - Labs CBC & Chem 7: 07/11/18 04:22 07/11/18 04:22 Inpatient Charges Provider: Dr. Moisés Carroll Follow up - Inpatient: [id number] - Attending Attestation I examined this patient and my medical decision-making was reviewed with the Advanced Practice Nurse. I agree with the documented findings, disposition and treatment plan as described except to the extent set forth below. -Received palliative radiation to metastatic gastric lesions -Transfusing 1 unit of PRBCs -Will administer Venofer 300 mg IV for iron deficiency anemia -He is receiving B12 injections for B12 deficiency
[2018-07-11] MEDS ORDERED: 0.9 % Sodium Chloride 250 ML ONE (11:08)
--- NOTE | 2018-07-11 13:43 | Internal Med Progress Note ---
Hospitalist Progress Note - Encounter Date of Encounter: 07/11/18 Time of Encounter: 08:00 - Subjective Interval History: She was seen and examined at bedside. Denies melena, hematochezia or hematemesis. Reports that his shortness of breath has improved however on deep inspiration he feels as though he has right-sided dull pain in the ribs. He denies any cough, fever, chills. No overnight events. Pain is controlled and he is tolerating by mouth diet. - Exam Vitals: Temp Pulse Resp BP Pulse Ox 98.6 F 85 20 108/64 98 07/11/18 11:24 07/11/18 11:24 07/11/18 11:24 07/11/18 11:24 07/11/18 11:24 Exam: General: Patient is alert, oriented, not in distress Head: atraumatic, normocephalic, Eye: normal appearance, PERRL, no scleral icterus, no conjunctival injection ENT: mucous membranes moist, normal external ear exam Neck: normal inspection, trachea midline, full ROM, no carotid bruits Chest: normal inspection, symmetric chest rise Respiratory: Tachypneic, decreased breath sounds bilaterally, crackles in the posterior lung tamayo bilaterally, no wheezing Cardiovascular: Irregularly irregular s1 and s2 No clicks, rubs, gallops, or murmors. Abdomen: Bowel sounds present normoactive x-4 quadrants. Abdomen is soft, nondistended. no Epigastric tenderness. No guarding or rebound. No organomegaly noted, obese musculoskeletal: Spontaneously moving all extremities. no edema, no calf tenderness Skin: warm, dry, intact. Neuro: Alert and oriented x4. No focal deficit Psych: Patient's affect is normal - Assessment and Plan (1) GI bleed Current Visit: Yes Status: Acute Assessment and Plan: s/p EGD on 07/08 with bleeding polyps ? METS was transferred to ICU on 07/07 and transferred back to floor on 07/09 H&H trended down to 7.1 we will transfuse him 1 unit of PRBC on 07/11 IV protonix GI onboard oncology on board s/p radiation on 07/07 continue to monitor H/H closely BID and transfuse below 8 ( cardiac history) S/P 6 PRBC, 3FFP, vitamin k and kcentra avoid antiplatelets, anticoagulation and NSAIDS continuous tele vitals as per nursing clear liquids (2) Acute blood loss anemia Current Visit: Yes Status: Acute Assessment and Plan: secondary to GIB management as above (3) Metastatic melanoma Current Visit: Yes Status: Chronic Assessment and Plan: oncology on board Received C3 Ipilumumab (Yervoy) and Nivolumab (Opdivo) 07/05/18. CXR with worsening mets to the lung radiation as per oncology on 07/08/18 CT chest, abdomen and pelvis: Chest: No evidence of pulmonary embolism or other acute process. Progression of extensive pulmonary metastatic disease. Mild progression of osseous metastatic disease. Abdomen/pelvis: No acute abnormality. Severe metastatic disease of the liver without significant change. Slightly increased severity osseous metastatic disease. There is nodularity along the mucosal surface of the stomach evident, suspicious for metastatic involvement in this location as well. (4) Atrial fibrillation with RVR Current Visit: Yes Status: Chronic Assessment and Plan: most likley secondary to acute blood loss anemia from GIB cardizem drip stopped treating underlying cause which is anemia home medication BB, cardizem and digoxn restarted telemetry TSH/T4 and cortisol WNL. limited TTE with EF of 55% holding coumadin - risk and benefits discussed with patient and he understands TTE: Limited study to evaluate LVEF LVEF 55%. Moderate concentric left ventricular hypertrophy. Technically sub-optimal due to clinical status.Atrial fibrillation with rapid ventricular response. (5) Elevated INR Current Visit: Yes Status: Acute Assessment and Plan: resolved s/p Kcentra (6) Goals of care, counseling/discussion Current Visit: Yes Status: Acute Assessment and Plan: i discussed goals of care with patient for 15 minutes. he wishes to be full co de. i discussed CT scan findings with worsening metastatic disease palliative care consulted for goals of care prognosis poor (7) Vitamin B12 deficiency Current Visit: Yes Status: Acute Assessment and Plan: continue with b12 supplementations (8) DVT prophylaxis Current Visit: No Status: Acute Assessment and Plan: scds DVT Prophylaxis: scds - Time Spent with Patient Total time spent is greater than 50% in coordination of care (as documented) at patient's floor/unit and/or counseling patient: Internal Medicine: Result - Labs CBC & Chem 7: 07/11/18 04:22 07/11/18 04:22 Labs: Short CBC 07/10/18 07/11/18 Range/Units 15:55 04:22 WBC 8.1 (4.3-11.1) K/mcL Hgb 7.6 L 7.1 L (12.9-16.9) g/dL Hct 24.4 L 22.6 L (37.5-50.1) % Plt Count 201 (140-400) K/mcL BMP 07/11/18 04:22 Sodium 140 Potassium 4.1 Chloride 108 H Carbon Dioxide 26 BUN 12 Creatinine 0.60 L Glucose 111 H Calcium 7.8 L - ABG Interpretation ABG results: PT/INR, D-dimer PT 13.0 Seconds (9.4-12.1) H 07/08/18 22:00 - VTE Documentation of Mechanical Device: Intermittent pneumatic compression device Consult Discharge Plan - Plan Referrals: Shaila Ayon MD [Primary Care Provider] - (1) GI bleed Qualifiers: GI bleed type/associated pathology: unspecified gastrointestinal hemorrhage type Qualified Code(s): K92.2 - Gastrointestinal hemorrhage, unspecified
[2018-07-11] MEDS ORDERED: Furosemide 20 MG/2 ML VIAL IVP ONE (16:38)
[2018-07-11] MEDS: Pantoprazole 40 MG VIAL IVP SCH (17:40)
[2018-07-11] MEDS: Mirtazapine 15 MG TABLET PO SCH (20:42)
[2018-07-12] MEDS: Ipratropium Neb 0.5 MG NEBULIZER IH SCH ×7 (00:05→23:53)
[2018-07-12] MEDS: Levalbuterol Neb 1.25 MG/3 ML IH SCH ×4 (03:59→19:59)
[2018-07-12] MEDS: Pantoprazole 40 MG VIAL IVP SCH ×2 (05:37→17:33)
[2018-07-12] MEDS ORDERED: Furosemide 20 MG/2 ML VIAL IVP ONE (07:57)
[2018-07-12 08:15] LABS: Hemoglobin 8.4 g/dL (12.9-16.9); Mean Corpuscular HGB Conc 32.3 g/dL (31.6-35.5); Mean Corpuscular Hemoglobin 29.6 pg (28.0-33.3); Mean Corpuscular Volume 91.5 fL (83.0-100.0); Mean Platelet Volume 9.6 fL (9.4-12.4); Platelet Count 268 K/mcL (140-400); Red Blood Count 2.84 M/mcL (4.19-5.50); Red Cell Distribution Width 15.9 % (11.5-14.5)
[2018-07-12 08:27] LABS: BUN/Creatinine Ratio 20 (6-26); Blood Urea Nitrogen 12 mg/dL (8-23); Calcium 8.4 mg/dL (8.6-10.3); Carbon Dioxide 28 mEq/L (23-29); Chloride 102 mEq/L (98-107); Glucose 102 mg/dL (70-105); Osmolality,Calculated 278 (280-300); Potassium 3.7 mEq/L (3.5-5.1); Sodium 134 mEq/L (136-145); eGFR For Non-African Americans > 60 (> 60)
--- NOTE | 2018-07-12 09:00 | Event Note ---
Date of Encounter: 07/11/18 Time of Encounter: 14:00 Patient was sitting on chair, feeling stronger. Still complaining of SOB, but it has improved. Appetite is good. Oncology is following, and next medication is to be ordered so i's ready when patient is ready. Patient confirmed full code status. Wants to continue to "think positive". Goals are clear, and patient has no symptom management needs. Palliative care will sign off, please reconsult prn.
[2018-07-12] MEDS: Cyanocobalamin (B-12) 1,000 MCG/ML VIAL SQ SCH (09:33)
[2018-07-12] MEDS: Finasteride 5 MG TABLET PO SCH (09:34)
[2018-07-12] MEDS: Multivit/Ca/Min/Fe/FA 1 TAB TABLET PO SCH (09:34)
[2018-07-12] MEDS: Diltiazem CD (24hr) 240 MG CAPSULE PO SCH (09:34)
[2018-07-12] MEDS: Folic Acid 1 MG TABLET PO SCH (09:34)
[2018-07-12] MEDS: Thiamine (B-1) 100 MG TABLET PO SCH (09:35)
[2018-07-12] MEDS: *HR* Digoxin 0.125 MG TABLET PO SCH (09:35)
--- NOTE | 2018-07-12 12:13 | Oncology Inp Progress Note ---
<GlenAndrés - Last Filed: 07/12/18 16:51> Date of Encounter: 07/12/18 Time of Encounter: 16:51 Oncology: Obj Data - Labs CBC & Chem 7: 07/12/18 07:58 07/12/18 07:58 Consult Discharge Plan - Plan Referrals: Shaila Ayon MD [Primary Care Provider] - Inpatient Charges Provider: Dr. Moisés Carroll Follow up - Inpatient: [id number] - Attending Attestation I examined this patient and my medical decision-making was reviewed with the Advanced Practice Nurse. I agree with the documented findings, disposition and treatment plan as described except to the extent set forth below. 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 1 polypoid lesion with active oozing, 2 clips placed and she must delgado was applied. Coumadin on hold, s/p INR reversal, emergent radiotherapy to gastric body with stabilization of hgb, transferred out of ICU B12 replaced SQ 1000 mcg x5 days S/P Venofer 300 mg Plan: Continue to hold coumadin, consider restarting as outpatient per treating oncologist/regional administrative assistant Dr. Michel Hgb stable and slightly improved today to 8.4 No s/s bleeding Advancing diet as tolerated, continue to monitor Qualifiers: GI bleed type/associated pathology: unspecified gastrointestinal hemorrhage type Qualified Code(s): K92.2 - Gastrointestinal hemorrhage, unspecified (2) Metastatic melanoma Current Visit: Yes Status: Chronic Assessment and plan: Metastatic melanoma. Widespread lung nodules and liver metastasis and bony metastasis CT angiogram chest and CT abdomen and pelvis with contrast 07/06/2018 does note progression in disease. Plan: Plan to transition to Dabrafenib/Tratenib on outpatient basis Oncology: Subj Interval history: Mr. Drake is resting comfortably, currently taking breathing tx during ass essment. He has been OOB with physical therapy and planning on ambulating down halls with nursing staff soon. He denies pain. SOB still present but improved since admission. Denies any s/s bleeding such as hematochezia or melena but states he has not had a bowel movement since prior event. He feels as though he needs to have a BM and will be using bathroom soon after his walk. Tolerating full liquid diet well. - Constitutional General appearance: cooperative, no acute distress, no febrile - Head Head exam: Present: atraumatic - ENT ENT exam: Present: mucous membranes moist, normal oropharynx - Respiratory Respiratory exam: Present: decreased breath sounds, CTAB. Absent: respiratory distress - Cardiovascular Cardiovascular exam: Present: RRR - GI/Abdominal GI/Abdominal exam: Present: normal bowel sounds, soft. Absent: tenderness - Extremities Exam Extremities exam: Present: normal inspection. Absent: calf tenderness - Neurological Exam Neurological exam: Present: alert, oriented X3, no focal deficits, strengths equal and symetr throughout - Psychiatric Psychiatric exam: Present: normal affect, normal mood - Skin Skin exam: Present: dry, intact, normal color, warm Oncology: Obj Data - Labs CBC & Chem 7: 07/12/18 07:58 07/12/18 07:58 Inpatient Charges Provider: Dr. Moisés Carroll
--- NOTE | 2018-07-12 14:10 | Internal Med Progress Note ---
Hospitalist Progress Note - Encounter Date of Encounter: 07/12/18 Time of Encounter: 08:00 - Subjective Interval History: Patient was seen and examined at bedside. Reports that his shortness of breath has improved while he is received Lasix however he continues to be out of breath especially when he exerts himself. He denies cough, fever or chills. No overnight events. Pain is controlled. Tolerating by mouth diet.Denies melena, hematochezia or hematemesis. - Exam Vitals: Temp Pulse Resp BP Pulse Ox 98.3 F 95 17 117/67 95 07/12/18 04:21 07/12/18 11:53 07/12/18 11:53 07/12/18 11:53 07/12/18 11:53 Exam: General: Patient is alert, oriented, not in distress Head: atraumatic, normocephalic, Eye: normal appearance, PERRL, no scleral icterus, no conjunctival injection ENT: mucous membranes moist, normal external ear exam Neck: normal inspection, trachea midline, full ROM, no carotid bruits Chest: normal inspection, symmetric chest rise Respiratory: Tachypneic, decreased breath sounds bilaterally, crackles in the posterior lung tamayo bilaterally L>R, no wheezing Cardiovascular: irregular s1 and s2 No clicks, rubs, gallops, or murmors. Abdomen: Bowel sounds present normoactive x-4 quadrants. Abdomen is soft, nondistended. no Epigastric tenderness. No guarding or rebound. No organomegaly noted, obese musculoskeletal: Spontaneously moving all extremities. no edema, no calf tenderness Skin: warm, dry, intact. Neuro: Alert and oriented x4. No focal deficit Psych: Patient's affect is normal - Assessment and Plan (1) GI bleed Current Visit: Yes Status: Acute Assessment and Plan: s/p EGD on 07/08 with bleeding polyps ? METS was transferred to ICU on 07/07 and transferred back to floor on 07/09 H&H 8.4 on 07/12 IV protonix GI onboard oncology on board s/p radiation on 07/07 continue to monitor H/H closely BID and transfuse below 8 ( cardiac history) S/P 7 PRBC, 3FFP, vitamin k and kcentra avoid antiplatelets, anticoagulation and NSAIDS continuous tele vitals as per nursing advanced diet to soft. (2) Acute blood loss anemia Current Visit: Yes Status: Acute Assessment and Plan: secondary to GIB management as above (3) Acute respiratory failure with hypoxia Current Visit: Yes Status: Acute Assessment and Plan: patient has acute respiratory failure requiring oxygen ( not on home oxygen) Ruled out PE ( CTA negative) most likely secondary to increased mets to the lungs doubt CAP ( Ct chest without evidence of infiltrates) CXr on 07/11 with new left sided pleural effusion- continue with IV lasix as b elow No leukocytosis which can be secondary to metastatic disease as he has no fever will hold off of Abx for now - if he develops fever will consider restarting Abx urine antigens negative. xopenex and ipratropium continue oxygen via nasal cannula to keep sats >92% adn try to taper off will neeed 6 minte walk test prior to discharge to evaluate for oxygen need if respiratory distress consider Bipap CTA chest :Chest: No evidence of pulmonary embolism or other acute process. P rogression of extensive pulmonary metastatic disease. Mild progression of osseous metastatic disease. (4) Pleural effusion Current Visit: Yes Status: Acute Assessment and Plan: left side most likely from aggressive hydration and multiple transfusion continue with lasix 20 mg IV daily will give another dose tonight if BP permits. watch BP and renal functions closely. (5) Metastatic melanoma Current Visit: Yes Status: Chronic Assessment and Plan: oncology on board Received C3 Ipilumumab (Yervoy) and Nivolumab (Opdivo) 07/05/18. CXR with worsening mets to the lung radiation as per oncology on 07/08/18 CT chest, abdomen and pelvis: Chest: No evidence of pulmonary embolism or other acute process. Progression of extensive pulmonary metastatic disease. Mild progression of osseous metastatic disease. Abdomen/pelvis: No acute abnormality. Severe metastatic disease of the liver without significant change. Slightly increased severity osseous metastatic disease. There is nodularity along the mucosal surface of the stomach evident, suspicious for metastatic involvement in this location as well. (6) Atrial fibrillation with RVR Current Visit: Yes Status: Chronic Assessment and Plan: most likley secondary to acute blood loss anemia from GIB cardizem drip stopped treating underlying cause which is anemia home medication BB, cardizem and digoxn restarted telemetry TSH/T4 and cortisol WNL. limited TTE with EF of 55% holding coumadin - risk and benefits discussed with patient and he understands TTE: Limited study to evaluate LVEF LVEF 55%. Moderate concentric left ventricular hypertrophy. Technically sub-optimal due to clinical status.Atrial fibrillation with rapid ventricular response. (7) Goals of care, counseling/discussion Current Visit: Yes Status: Acute Assessment and Plan: i discussed goals of care with patient for 15 minutes. he wishes to be full code. i discussed CT scan findings with worsening metastatic disease palliative care consulted for goals of care prognosis poor (8) Vitamin B12 deficiency Current Visit: Yes Status: Acute Assessment and Plan: continue with b12 supplementations (9) DVT prophylaxis Current Visit: No Status: Acute Assessment and Plan: scds (10) Elevated INR Current Visit: Yes Status: Resolved - Time Spent with Patient Total time spent is greater than 50% in coordination of care (as documented) at patient's floor/unit and/or counseling patient: Internal Medicine: Result - Labs CBC & Chem 7: 07/12/18 07:58 07/12/18 07:58 Labs: Short CBC 07/12/18 Range/Units 07:58 WBC 8.6 (4.3-11.1) K/mcL Hgb 8.4 L (12.9-16.9) g/dL Hct 26.0 L (37.5-50.1) % Plt Count 268 (140-400) K/mcL BMP 07/12/18 07:58 Sodium 134 L Potassium 3.7 Chloride 102 Carbon Dioxide 28 BUN 12 Creatinine 0.61 L Glucose 102 Calcium 8.4 L - ABG Interpretation ABG results: PT/INR, D-dimer PT 13.0 Seconds (9.4-12.1) H 07/08/18 22:00 - Impressions Impressions Chest X-Ray 07/11/18 13:40 IMPRESSION: Interval development of left pleural effusion and probable left basilar airspace disease, atelectasis or pneumonia. D/ / Xin De Guzman Cha, MD / Xin De Guzman Cha, MD Interpreting Provider: Xin De Guzman Cha, MD - VTE Documentation of Mechanical Device: Intermittent pneumatic compression device Consult Discharge Plan - Plan Referrals: Shaila Ayon MD [Primary Care Provider] - (1) GI bleed Qualifiers: GI bleed type/associated pathology: unspecified gastrointestinal hemorrhage type Qualified Code(s): K92.2 - Gastrointestinal hemorrhage, unspecified
[2018-07-12] MEDS: Acetaminophen 325 MG TABLET PO PRN (14:56)
[2018-07-12] MEDS: Mirtazapine 15 MG TABLET PO SCH (20:13)
[2018-07-13] MEDS: Acetaminophen 325 MG TABLET PO PRN ×2 (01:32→14:41)
[2018-07-13] MEDS: Ipratropium Neb 0.5 MG NEBULIZER IH SCH ×4 (03:59→22:03)
[2018-07-13] MEDS: Levalbuterol Neb 1.25 MG/3 ML IH SCH ×4 (03:59→22:03)
[2018-07-13] MEDS: Pantoprazole 40 MG VIAL IVP SCH (05:41)
[2018-07-13 06:34] LABS: Hematocrit 24.7 % (37.5-50.1); Mean Corpuscular HGB Conc 32.4 g/dL (31.6-35.5); Mean Corpuscular Hemoglobin 29.5 pg (28.0-33.3); Mean Corpuscular Volume 91.1 fL (83.0-100.0); Mean Platelet Volume 9.7 fL (9.4-12.4); Platelet Count 286 K/mcL (140-400); Red Blood Count 2.71 M/mcL (4.19-5.50); Red Cell Distribution Width 15.8 % (11.5-14.5)
[2018-07-13 06:56] LABS: BUN/Creatinine Ratio 22 (6-26); Blood Urea Nitrogen 15 mg/dL (8-23); Calcium 8.5 mg/dL (8.6-10.3); Carbon Dioxide 26 mEq/L (23-29); Chloride 101 mEq/L (98-107); Glucose 113 mg/dL (70-105); Osmolality,Calculated 284 (280-300); Potassium 3.7 mEq/L (3.5-5.1); Sodium 136 mEq/L (136-145); eGFR For Non-African Americans > 60 (> 60)
[2018-07-13] MEDS: Multivit/Ca/Min/Fe/FA 1 TAB TABLET PO SCH (08:38)
[2018-07-13] MEDS: *HR* Digoxin 0.125 MG TABLET PO SCH (08:38)
[2018-07-13] MEDS: Thiamine (B-1) 100 MG TABLET PO SCH (08:38)
[2018-07-13] MEDS: Folic Acid 1 MG TABLET PO SCH (08:39)
[2018-07-13] MEDS: Finasteride 5 MG TABLET PO SCH (08:39)
[2018-07-13] MEDS: Diltiazem CD (24hr) 240 MG CAPSULE PO SCH (08:53)
[2018-07-13] MEDS ORDERED: Bisacodyl 10 MG RECTAL SUPPOSITORY RC ONE (11:54)
--- NOTE | 2018-07-13 11:59 | Internal Med Progress Note ---
Hospitalist Progress Note - Encounter Date of Encounter: 07/13/18 Time of Encounter: 09:45 - Subjective Interval History: Hospital course reviewed. Did not have any bowel movement despite being on Colace hence unable to appreciate any melena, hematochezia, or bright red blood per rectum. Hemoglobin is stable around 8 today. Breathing had improved after 1 dose of Lasix yesterday but continues to be dyspneic on exertion. Notice that the heart rate is around 120s to 130s. - Exam Vitals: Temp Pulse Resp BP Pulse Ox 98.2 F 116 18 109/82 98 07/13/18 04:18 07/13/18 07:20 07/13/18 07:20 07/13/18 07:20 07/13/18 07:20 Exam: General: Patient is alert, oriented, not in distress Respiratory: min crackles at the lung bases L>R, otherwise clear Cardiovascular: irregular rhythm and tachycardic. S1 and S2 heard. Abdomen: soft, non-tender Neuro: Alert and oriented x4. No focal deficit - Assessment and Plan (1) GI bleed Current Visit: Yes Status: Acute Assessment and Plan: S/P 7 PRBC, 3FFP, vitamin k and kcentra EGD on 07/08 showed multiple 2030 mm sessile/pedunculated polyp (?mets) with active bleeding from the two. s/p clips x 2 and hemospray. s/p urgent radiotherapy in ICU on 07/07 Hb stable around 8 continue PPI BID, will switch to PO today (2) Acute blood loss anemia Current Visit: Yes Status: Acute Assessment and Plan: as above (3) Atrial fibrillation with RVR Current Visit: Yes Status: Chronic Assessment and Plan: Patient continues to experience dyspnea on exertion and is noted to have poorly controlled heart rate On digoxin, diltiazem, and beta cat at home. will uptitrate beta cat to 75 mg twice a day, keep on IV of diltiazem 5 mg per hour today -> may need to increase PO Diltiazem to 360mg tomorrow as well Not on anticoagulation due to the above Appreciate oncology input (4) Acute respiratory failure with hypoxia Current Visit: Yes Status: Resolved Assessment and Plan: patient has acute respiratory failure requiring oxygen (not on home oxygen) Ruled out PE ( CTA negative) most likely secondary to increased pulmonary mets, CT chest without evidence of consolidation Also noted to have small left-sided pleural effusion on 07/11, received 1 dose of lasix 20mg with no further O2 requirement passed 6 min walk test without need for O2 monitor off lasix (5) Pleural effusion Current Visit: Yes Status: Acute Assessment and Plan: likely due to frequent PRBC transfusion, received 1 dose of lasix and weaned to room air monitor off lasix (6) Metastatic melanoma Current Visit: Yes Status: Chronic Assessment and Plan: oncology on board CXR with worsening mets to the lung received radiation therapy due to GIB possibly from mets for outpatient follow up palliative input also appreciated, remain full code for now (7) Goals of care, counseling/discussion Current Visit: Yes Status: Acute (8) Vitamin B12 deficiency Current Visit: Yes Status: Acute Assessment and Plan: continue with b12 supplementations (9) Constipation Current Visit: Yes Status: Acute Assessment and Plan: Refractory to oral agents Will administer Dulcolax suppository today (10) DVT prophylaxis Current Visit: No Status: Acute Assessment and Plan: scds - Time Spent with Patient Total time spent is greater than 50% in coordination of care (as documented) at patient's floor/unit and/or counseling patient: 25 - 35 minutes Plan of Care Discussed with: patient (discussed with RN) Internal Medicine: Result - Labs CBC & Chem 7: 07/13/18 06:05 07/13/18 06:05 Labs: Short CBC 07/13/18 Range/Units 06:05 WBC 8.7 (4.3-11.1) K/mcL Hgb 8.0 L (12.9-16.9) g/dL Hct 24.7 L (37.5-50.1) % Plt Count 286 (140-400) K/mcL BMP 07/13/18 06:05 Sodium 136 Potassium 3.7 Chloride 101 Carbon Dioxide 26 BUN 15 Creatinine 0.67 L Glucose 113 H Calcium 8.5 L - ABG Interpretation ABG results: PT/INR, D-dimer PT 13.0 Seconds (9.4-12.1) H 07/08/18 22:00 - VTE Documentation of Mechanical Device: Intermittent pneumatic compression device Consult Discharge Plan - Plan Referrals: Shaila Ayon MD [Primary Care Provider] - (1) GI bleed Qualifiers: GI bleed type/associated pathology: unspecified gastrointestinal hemorrhage type Qualified Code(s): K92.2 - Gastrointestinal hemorrhage, unspecified (9) Constipation Qualifiers: Constipation type: unspecified constipation type Qualified Code(s): K59.00 - Constipation, unspecified
--- NOTE | 2018-07-13 13:09 | Oncology Inp Progress Note ---
<FlorecitanatalieAndrés - Last Filed: 07/13/18 17:16> Date of Encounter: 07/13/18 Time of Encounter: 17:16 Oncology: Obj Data - Labs CBC & Chem 7: 07/13/18 06:05 07/13/18 06:05 Consult Discharge Plan - Plan Referrals: Shaila Ayon MD [Primary Care Provider] - Inpatient Charges Provider: Dr. Moisés Carroll Follow up - Inpatient: [id number] - Attending Attestation I examined this patient and my medical decision-making was reviewed with the Advanced Practice Nurse. I agree with the documented findings, disposition and treatment plan as described except to the extent set forth below. -H/H stable. -Patient still has not had a BM. 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 1 polypoid lesion with active oozing, 2 clips placed and she must delgado was applied. Coumadin on hold, s/p INR reversal, emergent radiotherapy to gastric body with stabilization of hgb, transferred out of ICU B12 replaced SQ 1000 mcg x5 days S/P Venofer 300 mg Plan: Continue to hold coumadin, consider restarting as outpatient per treating o ncologist/police sergeant Dr. Michel Hgb stable No s/s bleeding Advancing diet as tolerated, continue to monitor Qualifiers: GI bleed type/associated pathology: unspecified gastrointestinal hemorrhage type Qualified Code(s): K92.2 - Gastrointestinal hemorrhage, unspecified (2) Metastatic melanoma Current Visit: Yes Status: Chronic Assessment and plan: Metastatic melanoma. Widespread lung nodules and liver metastasis and bony metastasis CT angiogram chest and CT abdomen and pelvis with contrast 07/06/2018 does note progression in disease. Plan: Plan to transition to Dabrafenib/Tratenib on outpatient basis I will arrange for outpatient follow up with Dr. Michel within about one week to discuss treatment options and monitor CBC We will otherwise plan to sign off as he continues to work on stabilization of his HR and constipation (3) Constipation Current Visit: Yes Status: Acute Assessment and plan: No bowel movement since melena on admission Continue colace S/P dulcolax suppository consider lactulose if needed Qualifiers: Constipation type: unspecified constipation type Qualified Code(s): K59.00 - Constipation, unspecified Oncology: Subj Interval history: Patient sitting on side of bed and was able to get into chair unassisted. Still with SOB on exertion but improved since admission. HR remains poorly controlled, he is on cardizem gtt and planning to have oral dose increased. He has not had a bowel movement. Tolerating mechanical soft diet well. No pain. - Constitutional General appearance: cooperative, no acute distress, no febrile - Head Head exam: Present: atraumatic - ENT ENT exam: Present: mucous membranes moist, normal oropharynx - Respiratory Respiratory exam: Present: decreased breath sounds, CTAB. Absent: respiratory distress - Cardiovascular Cardiovascular exam: Present: irregular rhythm - GI/Abdominal GI/Abdominal exam: Present: normal bowel sounds, soft. Absent: tenderness - Extremities Exam Extremities exam: Present: normal inspection. Absent: calf tenderness - Neurological Exam Neurological exam: Present: alert, oriented X3, no focal deficits, strengths equal and symetr throughout - Psychiatric Psychiatric exam: Present: normal affect, normal mood - Skin Skin exam: Present: dry, intact, normal color, warm Oncology: Obj Data - Labs CBC & Chem 7: 07/13/18 06:05 07/13/18 06:05 Inpatient Charges Provider: Dr. Moisés Carroll
[2018-07-13] MEDS: Mirtazapine 15 MG TABLET PO SCH (20:32)
[2018-07-13] MEDS: Lactulose Oral Soln 20 GM/30 ML UDC PO SCH (20:38)
[2018-07-14 03:30] LABS: Hematocrit 25.2 % (37.5-50.1); Hemoglobin 7.9 g/dL (12.9-16.9)
[2018-07-14 03:50] LABS: BUN/Creatinine Ratio 26 (6-26); Blood Urea Nitrogen 17 mg/dL (8-23); Calcium 8.2 mg/dL (8.6-10.3); Carbon Dioxide 27 mEq/L (23-29); Chloride 101 mEq/L (98-107); Glucose 133 mg/dL (70-105); Magnesium 1.8 mg/dL (1.6-2.6); Osmolality,Calculated 283 (280-300); Potassium 4.4 mEq/L (3.5-5.1); Sodium 135 mEq/L (136-145); eGFR For Non-African Americans > 60 (> 60)
[2018-07-14] MEDS ORDERED: Ondansetron 4 MG/2 ML VIAL IVP PRN (03:53)
[2018-07-14] MEDS: Ipratropium Neb 0.5 MG NEBULIZER IH SCH ×2 (04:17→11:03)
[2018-07-14] MEDS: Levalbuterol Neb 1.25 MG/3 ML IH SCH ×2 (04:17→11:03)
[2018-07-14] MEDS ORDERED: Diltiazem CD (24hr) 180 MG CAPSULE PO SCH (09:00)
[2018-07-14] MEDS ORDERED: Metoprolol 100 MG TABLET PO SCH (09:00)
[2018-07-14] MEDS: Finasteride 5 MG TABLET PO SCH (09:41)
[2018-07-14] MEDS: Lactulose Oral Soln 20 GM/30 ML UDC PO SCH (09:41)
[2018-07-14] MEDS: Thiamine (B-1) 100 MG TABLET PO SCH (09:41)
[2018-07-14] MEDS: Folic Acid 1 MG TABLET PO SCH (09:41)
[2018-07-14] MEDS: *HR* Digoxin 0.125 MG TABLET PO SCH (09:41)
[2018-07-14] MEDS: Multivit/Ca/Min/Fe/FA 1 TAB TABLET PO SCH (09:41)
--- NOTE | 2018-07-14 10:51 | Discharge Summary ---
- NOTES TO OUTPATIENT PROVIDER Notes to Outpatient Provider: Follow with oncology as an outpatient to transition to a new chemotherapy agent Orders not resulted at time of discharge: Pending orders 07/14/18 15:00 Hemoglobin and Hematocrit [HEME] Timed Date of Encounter: 07/14/18 Time of Encounter: 08:15 - Discharge Diagnosis (1) GI bleed Priority: Primary Status: Acute Qualifiers: GI bleed type/associated pathology: unspecified gastrointestinal hemorrhage type Qualified Code(s): K92.2 - Gastrointestinal hemorrhage, unspecified (2) Acute blood loss anemia Priority: Secondary Status: Acute (3) Atrial fibrillation with RVR Priority: Secondary Status: Chronic (4) Acute respiratory failure with hypoxia Priority: Secondary Status: Resolved (5) Pleural effusion Priority: Secondary Status: Acute (6) Metastatic melanoma Priority: Secondary Status: Chronic (7) Goals of care, counseling/discussion Priority: Secondary Status: Acute (8) Vitamin B12 deficiency Priority: Secondary Status: Acute (9) Constipation Priority: Secondary Status: Acute Qualifiers: Constipation type: unspecified constipation type Qualified Code(s): K59.00 - Constipation, unspecified (10) DVT prophylaxis Priority: Secondary Status: Acute Hospital course: Mr. Drake is a 77 year old male with history of metastatic melanoma, atrial fibrillation on Coumadin, was admitted GI bleed and afib with RVR. Required 7U pRBC, 3U FFP, Vit K, and Kcentra. EGD 07/08 showed multiple sessile/pedunculated polyp (?mets) with active bleeding from the two polyps. Received 2 clips and hemospray and also underwent urgent radiotherapy in ICU on 07/07. Hemoglobin was subsequently stable around 8 and did not require transfusion for the last 3 days prior to discharge. For his A. fib with RVR, his Cardizem and metoprolol doses were increased to 360mg QD and 100mg BID. Coumadin was held as above and he will follow up with Cardiology and Oncology as outpatient to discuss the need to switch to another chemo agents as well as the rate control. Of note, he developed hypoxic respiratory failure secondary to volume resuscitation and frequent PRBC transfusion and was eventually weaned to room air after small dose of lasix. He was evaluated by PT/OT prior to DC and was deemed safe to return to the prior setting. Discharge discussed with: patient, nurse, case management, sr risk management consultant - Time Spent with Patient Total time spent providing and/or coordinating discharge services: 36 mins - Discharge Medications Prescriptions: New Docusate [Colace] 100 mg PO BID PRN #30 capsule PRN Reason: Constipation Lactulose 15 gm PO BID PRN #20 udc PRN Reason: Constipation Diltiazem CD (24hr) [Cardizem CD] 360 mg PO DAILY #60 cap.er.24h Metoprolol [Lopressor] 100 mg PO BID #60 tablet Continued Omeprazole [PriLOSEC] 20 mg PO DAILY Finasteride [Proscar] 5 mg PO DAILY Digoxin [Lanoxin] 0.125 mg PO DAILY Tamsulosin [Flomax] 0.4 mg PO DAILY Allopurinol [Zyloprim 300 MG] 300 mg PO DAILY Atorvastatin [Lipitor] 20 mg PO DAILY Ipratropium/Albuterol Neb [Duoneb] 3 ml IH Q6H Saw Lilly 160 mg PO BID Multivit-Min/FA/Lycopen/Lutein [Centrum Silver Tablet] 1 tab PO DAILY Budesonide/Formoterol 80/4.5 [Symbicort 80/4.5] 2 puff IH BID PRN PRN Reason: Shortness Of Breath Ferrous Sulfate [High Potency Iron] 27 mg PO DAILY Potassium Chloride [K-Tab ER] 20 meq PO Q48H Mirtazapine [Remeron] 15 mg PO HS #30 tablet Albuterol Sulfate [Proair Hfa] 1 puff IH Q6H PRN PRN Reason: Shortness Of Breath Binimetinib [Mektovi] 3 tab PO BID #180 tablet Encorafenib [Braftovi] 6 cap PO DAILY #180 capsule Discontinued Warfarin [Coumadin] 6 mg PO DAILY Diltiazem CD (24hr) [Cardizem CD] 240 mg PO DAILY Metoprolol Tartrate 50 mg PO BID Home Medications: Allopurinol [Zyloprim 300 MG] 300 mg PO DAILY 05/04/18 [History] Atorvastatin [Lipitor] 20 mg PO DAILY 05/04/18 [History] Budesonide/Formoterol 80/4.5 [Symbicort 80/4.5] 2 puff IH BID PRN 05/04/18 [History] Digoxin [Lanoxin] 0.125 mg PO DAILY 05/04/18 [History] Finasteride [Proscar] 5 mg PO DAILY 05/04/18 [History] Ipratropium/Albuterol Neb [Duoneb] 3 ml IH Q6H 05/04/18 [History] Multivit-Min/FA/Lycopen/Lutein [Centrum Silver Tablet] 1 tab PO DAILY 05/04/18 [History] Omeprazole [PriLOSEC] 20 mg PO DAILY 05/04/18 [History] Saw Lilly 160 mg PO BID 05/04/18 [History] Tamsulosin [Flomax] 0.4 mg PO DAILY 05/04/18 [History] Ferrous Sulfate [High Potency Iron] 27 mg PO DAILY 05/05/18 [History] Potassium Chloride [K-Tab ER] 20 meq PO Q48H 05/05/18 [History] Mirtazapine [Remeron] 15 mg PO HS #30 tablet 06/08/18 [Rx] Albuterol Sulfate [Proair Hfa] 1 puff IH Q6H PRN 07/06/18 [History] Binimetinib [Mektovi] 3 tab PO BID #180 tablet 07/08/18 [Rx] Encorafenib [Braftovi] 6 cap PO DAILY #180 capsule 07/08/18 [Rx] Diltiazem CD (24hr) [Cardizem CD] 360 mg PO DAILY #60 cap.er.24h 07/14/18 [Rx] Docusate [Colace] 100 mg PO BID PRN #30 capsule 07/14/18 [Rx] Lactulose 15 gm PO BID PRN #20 udc 07/14/18 [Rx] Metoprolol [Lopressor] 100 mg PO BID #60 tablet 07/14/18 [Rx] Allergies/Adverse Reactions: Allergy/AdvReac Type Severity Reaction Status Date / Time tape AdvReac Rash Uncoded 07/06/18 10:52 Date of admission: 07/07/18 19:53 Primary care physician: Shaila Ayon MD Consults: 07/06/18 14:55 Consult to Nutrition [CONS] Routine Comment: Consulting Provider: NUTRITION Reason for Dietary Consult: MST Score 07/06/18 15:25 Consult to Oncology [CONS] Routine Consulting Provider: Oncology [facility] [place] Reason for Consult: metastaic disease ? increased to the lungs Call Completed: No 07/07/18 07:14 Consult to Gastroenterology [CONS] Routine Consulting Provider: Gastroenterology [place] Reason for Consult: GI bleed Call Completed: Yes 07/07/18 07:49 Consult to Palliative Care [CONS] Routine Comment: Consulting Provider: Palliative [facility] [place] Reason for Consult: worsening metastatic melanoma Call Completed: Yes 07/08/18 12:12 Consult to Critical Care [CONS] Stat Consulting Provider: [facility] [place] Reason for Consult: severe anemia secondary to GI bleed Call Completed: Yes 07/08/18 12:55 Consult to Invasive Line Access Team [CONS] Routine Reason for Consult: poor access Line Type: EPIV 07/10/18 12:38 Consult to Case Management [CONS] Routine Comment: Consult to Nutrition [CONS] Routine Comment: Consulting Provider: NUTRITION Reason for Dietary Consult: PO Supplementation Consult to Physical Therapy [CONS] Routine Comment: Evaluate, develop and implement POC Reason for Consult: dispostion Does patient have active BEDREST order?: No Is patient medically & hemodynamically stable?: Yes Patient assessed for mobility or mobilized this visit?: Yes - Constitutional Vitals: Temp Pulse Resp BP Pulse Ox 98.7 F 105 17 128/77 93 07/14/18 03:43 07/14/18 07:39 07/14/18 07:39 07/14/18 07:39 07/14/18 07:39 Exam: General: Patient is alert, oriented, not in distress Respiratory: Clear to auscultation Cardiovascular: irregular rhythm with rate between 90-100s. S1 and S2 heard. Abdomen: soft, non-tender Neuro: Alert and oriented x4. No focal deficit - Patient Status Disposition: Home, Self-Care Condition: Fair Functional capacity at discharge: independent ambulation Overall status at discharge: patient is progressing back to baseline - Discharge Instructions Instructions: Anemia (GEN), Atrial Fibrillation (DC), Acute Respiratory Distress Syndrome (DC) Follow Up With: Shaila Ayon MD [Primary Care Provider] - Additional Instructions: Follow-up with cardiology and oncology - Diet and Activity Activity: resume usual activities as tolerated Diet: advance to your usual diet - VTE Documentation of Mechanical Device: Intermittent pneumatic compression device
[2018-07-14 11:24] VITALS: BP 115/68
== END 2018-07-14 13:21 | disposition home or self-care (01) | DRG 377 ==
LOC: 2NENU 10:33 → EMEROOARM 10:33 → 2NENU 14:03 → SUATTDRO 07-07 19:53 → ICNU 07-08 12:50 → 2NENU 07-09 18:05
PROVIDERS: ADMIT Internal Medicine Nephrology; ATTEND Internal Medicine

== ENCOUNTER 2018-09-16 16:23 | Inpatient (IN) ==
--- NOTE | 2018-09-16 18:03 | Emergency Department Note ---
Disposition Clinical Impression: Acute exacerbation of chronic obstructive airways disease, Respiratory distress, Metastatic melanoma Disposition: Admitted As Inpatient Condition: Fair Referrals: Saroj Phillips DO [Primary Care Provider] - Forms: ED Satisfaction Letter Time of Disposition: 19:11 General Adult HPI - General Chief complaint: ED Shortness of Breath/Dyspnea Stated complaint: GT Time Seen by Provider: 09/16/18 16:58 Source: patient Limitations: no limitations Nursing Notes Reviewed: Yes Vital Signs Reviewed: Yes - History of Present Illness HPI Narrative: Presents with shortness of breath which is chronic and the patient does have a history of cancer and pleural effusions and this episode of shortness of breath has been present for the last 3-4 days and constant and worse with exertion and he does have associated cough productive of white sputum without hemoptysis. Is here with friend. He denies any fevers. No chest pain. Does have some lower abdominal pain at the site of the hernia and he thinks this is from coughing. Social history: Stopped smoking in the distant past Pain Scale: 3 - Related Data Home Medications Medication Instructions Recorded Confirmed Allopurinol [Zyloprim 300 MG] 300 mg PO DAILY 05/04/18 08/30/18 Atorvastatin [Lipitor] 20 mg PO DAILY 05/04/18 08/30/18 Digoxin [Lanoxin] 0.125 mg PO DAILY 05/04/18 08/30/18 Finasteride [Proscar] 5 mg PO DAILY 05/04/18 08/30/18 Multivit-Min/FA/Lycopen/Lutein 1 tab PO DAILY 05/04/18 08/30/18 [Centrum Silver Tablet] Omeprazole [PriLOSEC] 20 mg PO DAILY 05/04/18 08/30/18 Tamsulosin [Flomax] 0.4 mg PO DAILY 05/04/18 08/30/18 Potassium Chloride [K-Tab ER] 20 meq PO DAILY 05/05/18 08/30/18 Albuterol Sulfate [Proair Hfa] 1 puff IH Q6H PRN 07/06/18 08/30/18 Cyanocobalamin (Vitamin B-12) 1,000 mcg PO DAILY 08/30/18 08/30/18 [Vitamin B12] Previous Rx's Medication Instructions Recorded Binimetinib [Mektovi] 3 tab PO BID #180 tablet 07/08/18 Encorafenib [Braftovi] 6 cap PO DAILY #180 capsule 07/08/18 Docusate [Colace] 100 mg PO BID PRN #30 capsule 08/11/18 Metoprolol [Lopressor] 100 mg PO BID #60 tablet 08/11/18 Mirtazapine [Remeron] 15 mg PO HS #30 tablet 08/11/18 Furosemide [Lasix] 40 mg PO DAILY #30 tablet 09/06/18 GuaiFENesin Liq [Robitussin Liq] 200 mg PO Q6HR PRN #10 udc 09/06/18 predniSONE [Prednisone] 10 mg PO DAILY #38 tab.ds.pk 09/06/18 Allergies Allergy/AdvReac Type Severity Reaction Status Date / Time tape AdvReac Rash Uncoded 08/10/18 11:45 Review of Systems: Constitutional: No fever Vision: No blurred vision ENT: No new rhinorrhea Respiratory: + cough Allergic: No allergies : No blood in urine GI: No blood in stool Hematologic: No bruising Dermatologic: No skin rash Musculoskeletal: No pain in the extremities Neuro: No numbness of the extremities Past Medical History - Past Medical History Medical history: Reports: atrial fibrillation, cancer, DVT, hypertension Psychiatric history: Reports: no psych history - Social History Smoking Status: Former smoker Smokeless Tobacco Status: No Alcohol use: Reports: occasionally Drug use: Reports: none Physical Exam CONSTITUTIONAL: Alert and oriented X3, well-nourished, well appearing, in no apparent distress, does have intermittent coughing but no acute respiratory distress. Does wear nasal cannula oxygen HEAD: Normocephalic; atraumatic. EYES: PERRL, no scleral icterus. NOSE: The nose is normal in appearance without rhinorrhea RESP: Normal chest excursion with respiration; breath sounds with bilateral wheezing which is symmetric CARD: Regular rhythm, without murmurs, rub or gallop ABD: Non-distended; non-tender, soft,without rigidity, rebound or guarding SKIN: Normal for age and race; warm and dry; no apparent lesions EXTREMITIES: Pulses are 2 plus and equal times 4 extremities, mild bilateral lower extremity symmetric pretibial peripheral pitting edema, no calf muscle pain. - General Limitations: no limitations General appearance: alert Course Vital Signs Temperature 98.4 F 09/16/18 16:33 Pulse Rate 103 09/16/18 16:33 Respiratory Rate 20 09/16/18 16:33 Blood Pressure 115/69 09/16/18 16:33 O2 Sat by Pulse Oximetry 94 09/16/18 16:33 Temperature 98.4 F 09/16/18 17:05 Pulse Rate 103 09/16/18 17:05 Respiratory Rate 20 09/16/18 17:05 Blood Pressure 115/69 09/16/18 17:05 O2 Sat by Pulse Oximetry 94 09/16/18 17:05 Oxygen Delivery Oxygen Delivery Nasal Cannula Medical Decision Making - [facility] Narrative Medical decision making narrative: Patient will have labs, chest x-ray, continue nasal cannula oxygen, he was sent here for admission. 1802 I did review the patient's test results and I did review his EKG showing atrial fibrillation with a rate of 102 indicating rapid ventricular response both out acute ischemic change. The patient will be admitted to the hospital for likely COPD exacerbation. Radiologist did not see significant pleural effusion on the chest x-ray. He is started vancomycin and Zosyn due to recent hospitalization, DuoNeb, sign Medrol. He does have moderate respiratory distress in the room. 1910 I did speak with Dr. Alatorre who accepts the patient for admission for COPD exacerbation 1950 - Medical Records Medical records reviewed: Yes I reviewed the patient's medical records. - Lab Data Lab results reviewed: Yes I reviewed the patient's lab results. Result diagrams: 09/16/18 17:26 09/16/18 17:26 Lab Results 09/16/18 09/16/18 Range/Units 17:26 17:26 WBC 14.9 H (4.3-11.1) K/mcL RBC 3.22 L (4.19-5.50) M/mcL Hgb 8.4 L (12.9-16.9) g/dL Hct 27.1 L (37.5-50.1) % MCV 84.2 (83.0-100.0) fL MCH 26.1 L (28.0-33.3) pg MCHC 31.0 L (31.6-35.5) g/dL RDW 17.9 H (11.5-14.5) % Plt Count 327 (140-400) K/mcL MPV 9.8 (9.4-12.4) fL Immature Gran % 0.5 (0-4) % Seg Neutrophils % 78.6 % Lymphocytes % 13.7 % Monocytes % 5.9 % Eosinophils % 1.1 % Basophils % 0.2 % Neutrophils # 11.7 H (1.6-8.9) K/mcL Lymphocytes # 2.0 (0.6-4.6) K/mcL Monocytes # 0.9 (0.0-1.3) K/mcL Eosinophils # 0.2 (0.0-0.6) K/mcL Basophils # 0.0 (0.0-0.2) K/mcL Sodium 137 (136-145) mEq/L Potassium 4.5 (3.5-5.1) mEq/L Chloride 95 L (98-107) mEq/L Carbon Dioxide 33 H (23-29) mEq/L BUN 13 (8-23) mg/dL Creatinine 0.87 (0.70-1.30) mg/dL Est GFR ( Amer) > 60 (> 60) Est GFR (Non-Af Amer) > 60 (> 60) BUN/Creatinine Ratio 15 (6-26) Glucose 115 H (70-105) mg/dL Calculated Osmolality 285 (280-300) Calcium 8.8 (8.6-10.3) mg/dL Troponin I < 0.03 (< 0.04) ng/mL - Radiology Data Radiology results reviewed: Yes I reviewed the patient's radiology results.
[2018-09-16 18:15] LABS: Basophils % 0.2 %; Eosinophils # 0.2 K/mcL (0.0-0.6); Eosinophils % 1.1 %; Hematocrit 27.1 % (37.5-50.1); Hemoglobin 8.4 g/dL (12.9-16.9); Immature Granulocytes % 0.5 % (0-4); Lymphocytes % 13.7 %; Mean Corpuscular Hemoglobin 26.1 pg (28.0-33.3); Mean Corpuscular Volume 84.2 fL (83.0-100.0); Mean Platelet Volume 9.8 fL (9.4-12.4); Monocytes # 0.9 K/mcL (0.0-1.3); Monocytes % 5.9 %; Neutrophils # 11.7 K/mcL (1.6-8.9); Platelet Count 327 K/mcL (140-400); Red Blood Count 3.22 M/mcL (4.19-5.50); Red Cell Distribution Width 17.9 % (11.5-14.5); Segmented Neutrophils % 78.6 %; White Blood Count 14.9 K/mcL (4.3-11.1)
[2018-09-16 18:38] LABS: BUN/Creatinine Ratio 15 (6-26); Blood Urea Nitrogen 13 mg/dL (8-23); Calcium 8.8 mg/dL (8.6-10.3); Carbon Dioxide 33 mEq/L (23-29); Chloride 95 mEq/L (98-107); Glucose 115 mg/dL (70-105); Osmolality,Calculated 285 (280-300); Potassium 4.5 mEq/L (3.5-5.1); Sodium 137 mEq/L (136-145); Troponin I < 0.03 ng/mL (< 0.04); eGFR For African Americans > 60 (> 60); eGFR For Non-African Americans > 60 (> 60)
[2018-09-16] MEDS ORDERED: Vancomycin 1,000 MG VIAL IVPB STA (19:07)
[2018-09-16] MEDS ORDERED: Piperacillin/Tazobactam 3.375 GM in Water for inj. (sterile) 20 ML IVP ONE (19:07)
[2018-09-16] MEDS ORDERED: Ipratropium/Albuterol Neb 3 ML IH ONE (19:07)
[2018-09-16] MEDS ORDERED: methylPREDNISolone 125 MG/2 ML VIAL IVP ONE (19:07)
[2018-09-16] MEDS ORDERED: Naloxone 0.4 MG/ML INJ IVP PRN (22:38)
[2018-09-16] MEDS ORDERED: Albuterol 2.5 MG/3 ML NEBULIZER IH PRN (22:40)
--- NOTE | 2018-09-16 22:47 | Internal Med History&Physical ---
Date of Encounter: 09/16/18 Time of Encounter: 22:24 Internal Medicine - H&P: HPI Chief complaint: Shortness of breath Admitted From: Emergency Dept Plans for Post Hospital Care: Home History of present illness: Mr. Drake is a 78 year old male Patient presented to the emergency department with shortness of breath. He was recently admitted to the hospital with similar complaints, discharged about a week and a half ago. He says after his discharge she was feeling pretty well but gradually became worse, his cough returned producing white phlegm. He was to follow-up with his PCP but he did not make it. He has nebulizers at home, but though he supposed to use them several times a day, he is forgetful and does not always use them. He is a former smoker, but quit more than 2 decades ago. He has a history of metastatic melanoma and follows with oncology. In the emergency department patient's initial vital signs were within normal limits. CBC demonstrated a white count of 14.9 and a hemoglobin of 8.4. Previous hemoglobin from prior admission was 10.1. BMP within normal limits. Initial troponin undetectable Chest x-ray showed changes in the right lung field from previous lung cancer the nodules previously seen were not appreciated. There was no other acute osseous process. EKG: Atrial fibrillation, rate 102. QTC 387. No acute ischemic changes. In the emergency department patient received breathing treatments, IV steroids, and was started on IV Zosyn and vancomycin as there were concerns of possible pneumonia considering his recent hospitalization. Blood cultures were not drawn. Patient was admitted to the hospital for further management. Upon my evaluation, patient is resting comfortably on the side of the bed. He is in no acute distress though he does get short of breath with conversation and coughs multiple times. He denies chest pain but does have abdominal pain which he says is from coughing. He denies diarrhea, constipation, nausea, vomiting, fever and chills. He has atrial fibrillation, but has been off anticoagulation due to history of GI bleed. He is a full code. Past Med Surg Social Fam HX - Past Medical History Medical history: atrial fibrillation, cancer, DVT, hypertension Additional medical history: partial lung removal, melanoma Psychiatric history: no psych history - Past Surgical History Additional surgical history: partial lung removal - Social History Smoking Status: Former smoker Smokeless Tobacco Status: No Alcohol use: occasionally Drug use: none - Family History Father Living Status: Hx Family Respiratory Disorders: Yes (COPD) Hx Family Cancer: Yes Internal Medicine - H&P: Meds Atorvastatin [Lipitor] 20 mg PO DAILY 05/04/18 [History] Digoxin [Lanoxin] 0.125 mg PO DAILY 05/04/18 [History] Finasteride [Proscar] 5 mg PO DAILY 05/04/18 [History] Multivit-Min/FA/Lycopen/Lutein [Centrum Silver Tablet] 1 tab PO DAILY 05/04/18 [History] Omeprazole [PriLOSEC] 20 mg PO DAILY 05/04/18 [History] Tamsulosin [Flomax] 0.4 mg PO DAILY 05/04/18 [History] Potassium Chloride [K-Tab ER] 20 meq PO DAILY 05/05/18 [History] Binimetinib [Mektovi] 3 tab PO BID #180 tablet 07/08/18 [Rx] Encorafenib [Braftovi] 6 cap PO DAILY #180 capsule 07/08/18 [Rx] Docusate [Colace] 100 mg PO BID PRN #30 capsule 08/11/18 [Rx] Metoprolol [Lopressor] 100 mg PO BID #60 tablet 08/11/18 [Rx] Mirtazapine [Remeron] 15 mg PO HS #30 tablet 08/11/18 [Rx] Allergy/AdvReac Type Severity Reaction Status Date / Time tape AdvReac Rash Uncoded 08/10/18 11:45 All Systems PM: A 10-system review of systems was performed and is negative for pertinent findings except as documented above in the HPI. - Constitutional Vitals: Temp Pulse Resp BP Pulse Ox 98.9 F 99 18 138/85 97 09/16/18 21:23 09/16/18 21:23 09/16/18 21:23 09/16/18 21:23 09/16/18 21:23 General appearance: Present: cooperative, A&O X 3, pleasant, no acute distress, answers questions appropriately Exam: - - Head Head exam: Present: normal inspection - Eye Eye exam: Present: EOMI, normal appearance - Respiratory Respiratory exam: Present: rales, rhonchi, wheezes. Absent: decreased breath so unds, CTAB, respiratory distress - Cardiovascular Cardiovascular exam: Present: irregular rhythm. Absent: diastolic murmur, systolic murmur - GI/Abdominal GI/Abdominal exam: Present: normal bowel sounds, soft. Absent: tenderness - Extremities Exam Extremities exam: Present: pedal edema, warm, radial pulses palpable and symmetrical. Absent: calf tenderness, tenderness Additional comments: Mild 1+ pitting edema in lower extremities - Neurological Exam Neurological exam: Present: no focal deficits, strengths equal and symetr throughout. Absent: motor sensory deficit, facial droop, speech deficit - Skin Skin exam: Present: dry, normal color, warm Internal Med - H&P Results - Labs CBC & Chem 7: 09/16/18 17:26 09/16/18 17:26 Labs: Short CBC 09/16/18 Range/Units 17:26 WBC 14.9 H (4.3-11.1) K/mcL Hgb 8.4 L (12.9-16.9) g/dL Hct 27.1 L (37.5-50.1) % Plt Count 327 (140-400) K/mcL Neutrophils # 11.7 H (1.6-8.9) K/mcL BMP 09/16/18 17:26 Sodium 137 Potassium 4.5 Chloride 95 L Carbon Dioxide 33 H BUN 13 Creatinine 0.87 Glucose 115 H Calcium 8.8 Cardiac Enzymes 09/16/18 Range/Units 17:26 Troponin I < 0.03 (< 0.04) ng/mL - Impressions ITS Impressions Chest X-Ray 09/16/18 18:03 IMPRESSION: Changes in the right lung field from previous lung cancer. The multiple described nodules from the prior CT of 08/11/2018 are not appreciated on plain film images. CT could better evaluate lung parenchyma if indicated. No other obvious acute process. D/ / 09/16/2018 18:30:54 Charla Ayon MD / jemal Interpreting Provider: Charla Ayon MD - Assessment and Plan (1) Acute exacerbation of chronic obstructive airways disease Current Visit: Yes Status: Acute Assessment and plan: Shortness of breath likely secondary to COPD. Patient noncompliant with his nebulizers at home. Breath sounds include wheezing and crackles. Patient coughed multiple times during the interview, productive of clear white sputum. Patient becomes short of breath with exertion and talking. He received breathing treatments and IV steroids in the emergency room. He was also started on IV antibiotics. Blood cultures were not drawn prior to antibiotics Obtain blood cultures. Continue IV antibiotics Oxygen supplementation as needed Continue breathing treatments and IV steroids Bedside pulse oximetry (2) Metastatic melanoma Current Visit: Yes Status: Chronic Assessment and plan: Management as per oncology Continue home meds (3) Anemia Current Visit: No Status: Chronic Assessment and plan: Patient's hemoglobin is 8.4 down from 10.1 during his previous admission. No obvious signs of bleeding. He does have history of GI bleed. Obtain occult blood test Type and screen Continue to monitor for signs of bleeding Hold anticoagulation Qualifiers: Anemia type: unspecified type Qualified Code(s): D64.9 - Anemia, unspecified (4) Afib Current Visit: No Status: Chronic Assessment and plan: Not on anticoagulation due to GI bleed in the past. Currently in Afib without RVR Cardiac monitoring Continue home meds Qualifiers: Atrial fibrillation type: chronic Qualified Code(s): I48.2 - Chronic atrial fibrillation (5) DVT prophylaxis Current Visit: No Status: Acute Assessment and plan: Not on anticoagulation due to history of GI bleed. SCDs - Time Spent With Patient Total time spent is greater than 50% in coordination of care (as documented) at patient's floor/unit and/or counseling patient: Greater than 35 minutes
[2018-09-16] MEDS: Ipratropium/Albuterol Neb 3 ML IH SCH (23:38)
[2018-09-16] MEDS: [UNRECOGNIZED DRUG - OTHER] PO SCH (23:44)
[2018-09-17 01:00] LABS: Hematocrit 26.9 % (37.5-50.1); Hemoglobin 8.2 g/dL (12.9-16.9); Mean Corpuscular HGB Conc 30.5 g/dL (31.6-35.5); Mean Corpuscular Hemoglobin 25.7 pg (28.0-33.3); Mean Corpuscular Volume 84.3 fL (83.0-100.0); Mean Platelet Volume 9.8 fL (9.4-12.4); Platelet Count 311 K/mcL (140-400); Red Blood Count 3.19 M/mcL (4.19-5.50); Red Cell Distribution Width 17.7 % (11.5-14.5); White Blood Count 10.4 K/mcL (4.3-11.1)
[2018-09-17 01:13] LABS: BUN/Creatinine Ratio 18 (6-26); Blood Urea Nitrogen 17 mg/dL (8-23); Calcium 8.5 mg/dL (8.6-10.3); Carbon Dioxide 30 mEq/L (23-29); Chloride 98 mEq/L (98-107); Glucose 210 mg/dL (70-105); Osmolality,Calculated 286 (280-300); Potassium 4.3 mEq/L (3.5-5.1); Sodium 134 mEq/L (136-145); eGFR For African Americans > 60 (> 60); eGFR For Non-African Americans > 60 (> 60)
[2018-09-17] MEDS: Ipratropium/Albuterol Neb 3 ML IH SCH ×5 (04:06→22:10)
[2018-09-17] MEDS: MethylPREDNISolone 40 MG/ML VIAL IVP SCH ×4 (05:25→23:54)
[2018-09-17] MEDS: *HR* Digoxin 0.125 MG TABLET PO SCH (08:19)
[2018-09-17] MEDS: Metoprolol 100 MG TABLET PO SCH ×2 (08:20→20:14)
[2018-09-17] MEDS: Piperacillin/Tazobactam 3.375 GM in 0.9 % Sodium Chloride Mini Bag 100 ML IVPB SCH ×3 (08:20→23:54)
[2018-09-17] MEDS: Finasteride 5 MG TABLET PO SCH (08:20)
[2018-09-17] MEDS: [UNRECOGNIZED DRUG - OTHER] PO SCH ×2 (08:22→20:15)
[2018-09-17] MEDS ORDERED: [UNRECOGNIZED DRUG - OTHER] PO SCH (09:00)
[2018-09-17] MEDS: Budesonide/Formoterol 160/4.5 1 PUFF INH IH SCH ×2 (10:54→22:10)
--- NOTE | 2018-09-17 12:55 | Internal Med Progress Note ---
Hospitalist Progress Note - Encounter Date of Encounter: 09/17/18 Time of Encounter: 12:51 - Subjective Interval History: Patient feels somewhat better today. Shortness of breath is improving but cough is persistent. Denies any chest pain. No palpitations. No fevers or chills reported overnight. - Exam Vitals: Temp Pulse Resp BP Pulse Ox 97.6 F 71 20 132/72 98 09/17/18 12:02 09/17/18 12:02 09/17/18 12:02 09/17/18 12:02 09/17/18 12:02 Exam: General: Patient is alert, no acute distress, oriented x 3 Respiratory: Prolonged expiratory phase, end expiratory wheezing Cardiovascular: Regular rate and rhythm. s1 and s2 normal No clicks, rubs, gallops, or murmurs. No pedal edema Abdomen: Abdomen is soft, nontender. Bowel sounds are present Musculoskeletal: Spontaneously moving all extremities Skin: warm, dry, intact. Neuro: Alert oriented x 3 normal cranial nerves, no focal deficits - Assessment and Plan (1) Acute exacerbation of chronic obstructive airways disease Current Visit: Yes Status: Acute (2) Afib Current Visit: Yes Status: Chronic (3) DVT prophylaxis Current Visit: No Status: Acute (4) Metastatic melanoma Current Visit: Yes Status: Chronic (5) Anemia Current Visit: Yes Status: Chronic DVT Prophylaxis: Start patient on subcutaneous heparin - Summary of Assessment and Plan Summary of Assessment and Plan: Acute exacerbation of COPD: Patient doing slightly better today. Continue bronchodilators. Intravenous steroids. Patient receiving broad-spectrum antibiotics per chest x-ray does not show any clear pneumonia. We will check pro calcitonin. If that is normal, stop antibiotics. Patient had recently been treated for COPD exacerbation and received azithromycin and steroids earlier this month. Will place him on Symbicort here. He will need to be discharged with this medication and we will also add Spiriva to his treatment regimen. Metastatic melanoma: Follow up with oncology. Anemia: Stool for occult blood ordered. Hemoglobin levels are stable. We will check iron profile B12 and folic acid levels. Elevated blood glucose: Blood glucose levels are elevated. Could be due to steroid use. Will check A1c. Monitor blood sugars. Atrial fibrillation: Rate controlled. Not on anticoagulation due to history of GI bleed. Moderate risk for complications - Time Spent with Patient Total time spent is greater than 50% in coordination of care (as documented) at patient's floor/unit and/or counseling patient: Internal Medicine: Result - Labs CBC & Chem 7: 09/17/18 00:23 09/17/18 00:23 Labs: Short CBC 09/16/18 09/17/18 Range/Units 17:26 00:23 WBC 14.9 H 10.4 (4.3-11.1) K/mcL Hgb 8.4 L 8.2 L (12.9-16.9) g/dL Hct 27.1 L 26.9 L (37.5-50.1) % Plt Count 327 311 (140-400) K/mcL Neutrophils # 11.7 H (1.6-8.9) K/mcL BMP 09/16/18 09/17/18 17:26 00:23 Sodium 137 134 L Potassium 4.5 4.3 Chloride 95 L 98 Carbon Dioxide 33 H 30 H BUN 13 17 Creatinine 0.87 0.96 Glucose 115 H 210 H Calcium 8.8 8.5 L Cardiac Enzymes 09/16/18 Range/Units 17:26 Troponin I < 0.03 (< 0.04) ng/mL - Impressions Impressions Chest X-Ray 09/16/18 18:03 IMPRESSION: Changes in the right lung field from previous lung cancer. The multiple described nodules from the prior CT of 08/11/2018 are not appreciated on plain film images. CT could better evaluate lung parenchyma if indicated. No other obvious acute process. D/ / 09/16/2018 18:30:54 Charla Ayon MD / jemal Interpreting Provider: Charla Ayon MD Consult Discharge Plan - Plan Referrals: Saroj Phillips DO [Primary Care Provider] - (2) Afib Qualifiers: Atrial fibrillation type: chronic Qualified Code(s): I48.2 - Chronic atrial fibrillation (5) Anemia Qualifiers: Anemia type: unspecified type Qualified Code(s): D64.9 - Anemia, unspecified
[2018-09-17] MEDS: [UNRECOGNIZED DRUG - OTHER] PO SCH (13:56)
[2018-09-17] MEDS: *HR* Heparin 5,000 UNIT/ML VIAL SQ SCH (16:52)
[2018-09-17] MEDS: Mirtazapine 15 MG TABLET PO SCH ×2 (20:14)
[2018-09-18] MEDS: Ipratropium/Albuterol Neb 3 ML IH SCH ×4 (04:01→22:08)
[2018-09-18] MEDS: MethylPREDNISolone 40 MG/ML VIAL IVP SCH ×3 (05:29→17:31)
[2018-09-18] MEDS: *HR* Heparin 5,000 UNIT/ML VIAL SQ SCH (05:29)
[2018-09-18] MEDS ORDERED: Aminoglycoside Consult 1 EACH MC ONE (07:54)
[2018-09-18] MEDS: Finasteride 5 MG TABLET PO SCH (08:46)
[2018-09-18] MEDS: Metoprolol 100 MG TABLET PO SCH ×2 (08:46→19:59)
[2018-09-18] MEDS: [UNRECOGNIZED DRUG - OTHER] PO SCH ×2 (08:46→20:01)
[2018-09-18] MEDS: *HR* Digoxin 0.125 MG TABLET PO SCH (08:46)
[2018-09-18 08:51] LABS: Basophils % 0.3 %; Eosinophils % 0.3 %; Hematocrit 26.2 % (37.5-50.1); Hemoglobin 7.8 g/dL (12.9-16.9); Immature Granulocytes % 0.5 % (0-4); Lymphocytes # 0.7 K/mcL (0.6-4.6); Lymphocytes % 9.8 %; Mean Corpuscular HGB Conc 29.8 g/dL (31.6-35.5); Mean Corpuscular Hemoglobin 25.3 pg (28.0-33.3); Mean Corpuscular Volume 85.1 fL (83.0-100.0); Mean Platelet Volume 9.9 fL (9.4-12.4); Monocytes # 0.4 K/mcL (0.0-1.3); Monocytes % 5.4 %; Neutrophils # 6.3 K/mcL (1.6-8.9); Platelet Count 287 K/mcL (140-400); Red Blood Count 3.08 M/mcL (4.19-5.50); Red Cell Distribution Width 17.6 % (11.5-14.5); Segmented Neutrophils % 83.7 %; White Blood Count 7.6 K/mcL (4.3-11.1)
[2018-09-18 09:14] LABS: % Iron Saturation 8 % (20-55); BUN/Creatinine Ratio 17 (6-26); Blood Urea Nitrogen 15 mg/dL (8-23); Calcium 8.8 mg/dL (8.6-10.3); Carbon Dioxide 30 mEq/L (23-29); Chloride 100 mEq/L (98-107); Glucose 145 mg/dL (70-105); Iron 16 mcg/dL (65-175); Osmolality,Calculated 289 (280-300); Potassium 4.7 mEq/L (3.5-5.1); Sodium 138 mEq/L (136-145); Transferrin 147 mg/dL (203-362); eGFR For African Americans > 60 (> 60); eGFR For Non-African Americans > 60 (> 60)
[2018-09-18 09:29] LABS: Ferritin 58 ng/mL (20-250)
[2018-09-18 09:36] LABS: Folate 10.2 ng/mL (3.0-16.0)
[2018-09-18] MEDS: Piperacillin/Tazobactam 3.375 GM in 0.9 % Sodium Chloride Mini Bag 100 ML IVPB SCH (09:37)
[2018-09-18] MEDS: Budesonide/Formoterol 160/4.5 1 PUFF INH IH SCH ×2 (10:46→22:08)
[2018-09-18] MEDS ORDERED: Ferumoxytol 510 MG in 0.9 % Sodium Chloride 100 ML IVPB ONE (11:52)
--- NOTE | 2018-09-18 11:59 | Internal Med Progress Note ---
Hospitalist Progress Note - Encounter Date of Encounter: 09/18/18 Time of Encounter: 11:55 - Subjective Interval History: Patient feels he is getting better but continues to have shortness of breath with minimal exertion. Denies any chest pain patient's today. Does have dry cough. No fevers reported. - Exam Vitals: Temp Pulse Resp BP Pulse Ox 97.5 F L 108 18 144/70 98 09/18/18 07:02 09/18/18 07:02 09/18/18 10:49 09/18/18 07:02 09/18/18 10:49 Exam: General: Patient is alert, no acute distress, oriented x 3 Respiratory: Prolonged expiratory phase, end expiratory wheezing Cardiovascular: Regular rate and rhythm. s1 and s2 normal No clicks, rubs, gallops, or murmurs. No pedal edema Abdomen: Abdomen is soft, nontender. Bowel sounds are present Musculoskeletal: Spontaneously moving all extremities Skin: warm, dry, intact. Neuro: Alert oriented x 3 normal cranial nerves, no focal deficits - Assessment and Plan (1) Acute exacerbation of chronic obstructive airways disease Current Visit: Yes Status: Acute (2) Afib Current Visit: Yes Status: Chronic (3) DVT prophylaxis Current Visit: No Status: Acute (4) Metastatic melanoma Current Visit: Yes Status: Chronic (5) Anemia Current Visit: Yes Status: Chronic DVT Prophylaxis: Will hold subcutaneous heparin given his anemia. SCDs for DVT prophylaxis - Summary of Assessment and Plan Summary of Assessment and Plan: Acute exacerbation of COPD: Continue bronchodilators. Continue prednisone. procalcitonin negative. We will stop antibiotics. Continue O2 supplementation. Continue Symbicort Metastatic melanoma: Follow up with oncology. Anemia: Hemoglobin levels continued to trend slowly down words. 7.8 today. Will consult GI for EGD tomorrow as patient has previously had upper GI bleeding earlier this year. Increase PPI to twice a day dose. Hold heparin. Patient does have severe iron deficiency. We will give him IV iron. Elevated blood glucose: Stable. A1c ending. Continue to monitor sugars. Atrial fibrillation: Rate controlled. Not on anticoagulation due to GI bleed. Moderate risk for complications - Time Spent with Patient Total time spent is greater than 50% in coordination of care (as documented) at patient's floor/unit and/or counseling patient: Internal Medicine: Result - Labs CBC & Chem 7: 09/18/18 07:38 09/18/18 07:38 Labs: Short CBC 09/18/18 Range/Units 07:38 WBC 7.6 (4.3-11.1) K/mcL Hgb 7.8 L (12.9-16.9) g/dL Hct 26.2 L (37.5-50.1) % Plt Count 287 (140-400) K/mcL Neutrophils # 6.3 (1.6-8.9) K/mcL BMP 09/18/18 07:38 Sodium 138 Potassium 4.7 Chloride 100 Carbon Dioxide 30 H BUN 15 Creatinine 0.86 Glucose 145 H Calcium 8.8 Consult Discharge Plan - Plan Referrals: Saroj Phillips DO [Primary Care Provider] - (2) Afib Qualifiers: Atrial fibrillation type: chronic Qualified Code(s): I48.2 - Chronic atrial fibrillation (5) Anemia Qualifiers: Anemia type: unspecified type Qualified Code(s): D64.9 - Anemia, unspecified
--- NOTE | 2018-09-18 12:00 | Electrocardiograph Report ---
[address] [address] Test Date: 2018-09-16 Pat Name: Brad Drake Department: EXAM2 Room: 2A26 Gender: Arabic Translator: : 1940 Requested By: Julio Castellano Order Number: [id number] Reading MD: Nancy Coughlin Measurements Intervals [place] Rate: 102 P: OK: QRS: 33 QRSD: 91 T: 52 QT: 297 QTc: 387 Interpretive Statements Atrial fibrillation Ventricular ectopy Electronically Signed On 09-18-2018 11:58:33 EDT by Nancy Coughlin
[2018-09-18] MEDS: [UNRECOGNIZED DRUG - OTHER] PO SCH (13:53)
[2018-09-18] MEDS: Mirtazapine 15 MG TABLET PO SCH (19:59)
[2018-09-18] MEDS ORDERED: GuaiFENesin Liq 200 MG/10 ML UDC PO PRN (20:53)
[2018-09-19] MEDS: MethylPREDNISolone 40 MG/ML VIAL IVP SCH ×3 (00:02→12:09)
[2018-09-19] MEDS: Ipratropium/Albuterol Neb 3 ML IH SCH ×4 (03:53→22:39)
[2018-09-19 05:10] LABS: Basophils % 0.2 %; Eosinophils % 0.3 %; Hematocrit 25.7 % (37.5-50.1); Hemoglobin 7.7 g/dL (12.9-16.9); Immature Granulocytes % 1.8 % (0-4); Lymphocytes # 1.1 K/mcL (0.6-4.6); Lymphocytes % 16.3 %; Mean Corpuscular Hemoglobin 25.6 pg (28.0-33.3); Mean Corpuscular Volume 85.4 fL (83.0-100.0); Mean Platelet Volume 9.6 fL (9.4-12.4); Monocytes # 0.4 K/mcL (0.0-1.3); Monocytes % 5.3 %; Neutrophils # 5.1 K/mcL (1.6-8.9); Platelet Count 289 K/mcL (140-400); Red Blood Count 3.01 M/mcL (4.19-5.50); Red Cell Distribution Width 17.7 % (11.5-14.5); Segmented Neutrophils % 76.1 %; White Blood Count 6.6 K/mcL (4.3-11.1)
[2018-09-19 05:32] LABS: BUN/Creatinine Ratio 21 (6-26); Blood Urea Nitrogen 17 mg/dL (8-23); Calcium 8.6 mg/dL (8.6-10.3); Carbon Dioxide 32 mEq/L (23-29); Chloride 102 mEq/L (98-107); Glucose 127 mg/dL (70-105); Osmolality,Calculated 293 (280-300); Potassium 4.8 mEq/L (3.5-5.1); Sodium 140 mEq/L (136-145); eGFR For African Americans > 60 (> 60); eGFR For Non-African Americans > 60 (> 60)
[2018-09-19 08:41] LABS: Estimated Average Glucose 137 mg/dl
[2018-09-19] MEDS: [UNRECOGNIZED DRUG - OTHER] PO SCH (09:03)
[2018-09-19] MEDS: Finasteride 5 MG TABLET PO SCH (09:03)
[2018-09-19] MEDS: Metoprolol 100 MG TABLET PO SCH ×2 (09:03→20:04)
[2018-09-19] MEDS: *HR* Digoxin 0.125 MG TABLET PO SCH ×2 (09:06→09:16)
[2018-09-19] MEDS: Budesonide/Formoterol 160/4.5 1 PUFF INH IH SCH ×2 (09:32→22:40)
[2018-09-19] MEDS ORDERED: *HR* Propofol 200 MG/20 ML VIAL IVP ONE (12:16)
[2018-09-19] MEDS ORDERED: Lidocaine -MPF 2% 2 ML VIAL ONE (12:16)
--- NOTE | 2018-09-19 12:37 | Gastroenterology Consult Note ---
Date of Encounter: 09/19/18 Time of Encounter: 10:15 - Assessment and plan (1) Anemia Current Visit: Yes Status: Chronic Assessment and plan: Hgb 10.1 on 09/04/2018. On admission Hgb 8.4 and today Hgb 7.7. Iron 16 with ferritin 58. Recommend dose of IV iron now and repeat in 2 weeks. Continue to monitor CBC and transfuse PRBC as needed. EGD 07/08/[address] Stevenson with multiple gastric polypoid lesions concerning for metastases with active bleed, two clips placed and hemospray applied. Plan for repeat EGD today. Keep patient NPO for scope. Qualifiers: Anemia type: unspecified type Qualified Code(s): D64.9 - Anemia, unspecified (2) Metastatic melanoma Current Visit: Yes Status: Chronic - Time Spent With Patient Total time spent is greater than 50% in coordination of care (as documented) at patient's floor/unit and/or counseling patient: GI History of Present Illness - Data of Consult Patient: known to practice within the last 3 years Consult date: 09/19/18 Requesting Physician: Nain Rodriguez MD - Consult Narrative Reason for consult: Anemia History of present illness: Mr. Drake is a 78 year old male with PMHx of Afib, DVT, HTN, lung cancer (2012), metastatic melanoma with mets to lung, bone, and liver who presented with complaints of shortness of breath. We were consulted to evaluate his anemia. Hgb 10.1 on 09/04/2018. On admission Hgb 8.4 and today Hgb 7.7. He recently had EGD 07/08 with active bleeding with two clips placed and hemospray applied. Patient reports feeling better today, but states he is short of breath with exertion. He denies fever, chills, chest pain, nausea, vomiting, melena, hematochezia, diarrhea, or constipation. Procedures: EGD 07/08/2018 Dr. Stevenson: Multiple gastric polypoid lesions concerning for metastases with active bleed, two clips placed and hemospray applied. NSAIDs: None Anticoagulation: None Past Med Surg Social Fam HX - Past Medical History Medical history: atrial fibrillation, cancer, DVT, hypertension Additional medical history: partial lung removal, melanoma Psychiatric history: no psych history - Past Surgical History Additional surgical history: partial lung removal - Social History Smoking Status: Former smoker Smokeless Tobacco Status: No Alcohol use: occasionally Drug use: none - Family History Father Living Status: Hx Family Respiratory Disorders: Yes (COPD) Hx Family Cancer: Yes - Gastrointestinal Gastrointestinal: Present: as per HPI - Constitutional Constitutional: as per HPI - EENT Eyes: as per HPI Ears: Present: as per HPI Nose, mouth and throat: Present: as per HPI - Cardiovascular Cardiovascular ROS: Present: as per HPI - Respiratory Respiratory IM: Present: as per HPI - Genitourinary Genitourinary: Absent: change in color, Urinary frequency - Neurological ROS Neurological GI: Present: as per HPI - Hematologic/Lymphatic Hematologic/Lymphatic pediatric: Present: as per HPI - Musculoskeletal Musculoskeletal ROS GI: Present: as per HPI - Integumentary Integumentary GI: Present: as per HPI - Psychiatric ROS Psychiatric GI: Present: as per HPI - Endocrine Endocrine IM: Present: as per HPI - Constitutional Vitals: Temp Pulse Resp BP Pulse Ox 98.1 F 97 18 146/75 95 09/19/18 11:33 09/19/18 11:33 09/19/18 11:33 09/19/18 11:33 09/19/18 11:33 General appearance: Present: cooperative, A&O X 3, no acute distress, answers questions appropriately - Head Head exam: Present: atraumatic, normocephalic - Eye Eye exam: Present: normal appearance, sclera anicteric - ENT ENT exam: Present: mucous membranes dry - Neck Neck exam general surgery: Present: normal inspection, trachea midline - Respiratory Respiratory exam: Present: decreased breath sounds, CTAB. Absent: rales, rhonchi - Cardiovascular Cardiovascular exam: Present: RRR, +S1, +S2 - GI/Abdominal GI/Abdominal exam: Present: soft, no peritoneal signs. Absent: distended, firm, guarding, tenderness - Rectal Rectal exam: Present: deferred - Extremities Exam Extremities exam: Present: warm - Neurological Exam Neurological exam: Present: no focal deficits - Psychiatric Psychiatric exam: Present: normal affect, normal mood - Skin Skin exam: Present: dry, intact, normal color, warm Results - Labs CBC & Chem 7: 09/19/18 04:23 09/19/18 04:22 Labs: Last Result 09/19/18 04:22 Calcium 8.6 Entire Visit 09/19/18 04:23 Hgb 7.7 L Hct 25.7 L Consult Discharge Plan - Plan Referrals: Saroj Phillips DO [Primary Care Provider] -
--- NOTE | 2018-09-19 13:21 | Anesthesia Evaluation PreOp ---
Date of Encounter: 09/19/18 Time of Encounter: 13:00 - Past History Planned Operation: EGD Cardiac History: HTN, Hyperlipidemia, Arrhythmia (a.fib, hx of DVT) Pulmonary History: Former smoker, COPD, Other (On home O2, s/p partial right pneumonectomy) Other Medical History: Other (metastatic melanoma with multiple metastases including liver, spine. Admitted over weekend with anemia, transfused with 2 units.) Anesthesia History: No Prior Anesthetic Complications, Past Anesthesia Alcohol Use: occasionally Drug use: none Medications and Allergies Digoxin [Lanoxin] 0.125 mg PO DAILY 05/04/18 [History] Finasteride [Proscar] 5 mg PO DAILY 05/04/18 [History] Multivit-Min/FA/Lycopen/Lutein [Centrum Silver Tablet] 1 tab PO DAILY 05/04/18 [History] Omeprazole [PriLOSEC] 20 mg PO DAILY 05/04/18 [History] Tamsulosin [Flomax] 0.4 mg PO DAILY 05/04/18 [History] Potassium Chloride [K-Tab ER] 20 meq PO Q48H 05/05/18 [History] Binimetinib [Mektovi] 3 tab PO BID #180 tablet 07/08/18 [Rx] Encorafenib [Braftovi] 6 cap PO DAILY #180 capsule 07/08/18 [Rx] Docusate [Colace] 100 mg PO BID PRN #30 capsule 08/11/18 [Rx] Mirtazapine [Remeron] 15 mg PO HS #30 tablet 08/11/18 [Rx] Atorvastatin Calcium [Lipitor] 20 mg PO HS 09/18/18 [History] Cyanocobalamin (Vitamin B-12) [Vitamin B-12] 1,000 mcg SL DAILY 09/18/18 [ History] Furosemide [Lasix] 40 mg PO HS 09/18/18 [History] Ipratropium/Albuterol Neb [Duoneb] 3 ml IH Q6HR PRN 09/18/18 [History] Metoprolol Tartrate 100 mg PO BID 09/18/18 [History] predniSONE [PredniSONE] 20 mg PO DAILY 09/18/18 [History] Allergy/AdvReac Type Severity Reaction Status Date / Time tape AdvReac Rash Uncoded 08/10/18 11:45 - Meds/Allergy Pre-op Review Medications Reviewed: Yes Allergies Reviewed: Yes Beta Blockers on Current Med List: Yes Anesthesia Results - Labs 09/19/18 04:23 09/19/18 04:22 - Imaging EKG: report reviewed (atrial fibrillation) Anesthesia Exam Selected Entries 09/19/18 12:54 Temperature 98.1 F Pulse Rate 85 Respiratory Rate 18 Blood Pressure 142/80 O2 Sat by Pulse Oximetry 95 Weight: 107 kg. NPO (# of Hours): over 8 hours - HEENT Pupil (Motor): Pupils equal Mallampati: II Teeth: Missing Oral Opening: Greater than 3 - Cardiac Rhythm: Irregular Anesthesia Assess/Plan ASA Score: 3 Level of consciousness: Cooperative Anesthetic Plan: MAC Monitoring Plan: Standard Monitors Recovery Plan: Other (Discussed MAC anesthesia, agreed to proceed.)
--- NOTE | 2018-09-19 13:29 | Anesthesia Evaluation Post Op ---
Date of Encounter: 09/19/18 Time of Encounter: 13:28 - Vital Signs Vital Signs: 124/77, HR 96, Spo2 99% (on F/M), RR 12 - Lungs Lungs: Clear Ascult./Percussion - Airway Airway: Non-obstructed - Cardiovascular Irregular Rate, Baseline Rhythm - Mental Status Mental Status: Alert & Oriented, Answers Appropriately - Pain Pain Scale: 0 Pain Scale used: Numeric (1 - 10) - Nausea Vomiting Nausea Vomiting: Not Present - Hydration Hydration: NPO, Has not voided - Discharge PostOp Status: Transfer Patient to floor
[2018-09-19] MEDS: Encorafenib [Braftovi] 75 MG PO SCH (13:50)
--- NOTE | 2018-09-19 13:54 | Internal Med Progress Note ---
Hospitalist Progress Note - Encounter Date of Encounter: 09/19/18 Time of Encounter: 13:54 - Subjective Interval History: Evaluated patient earlier today. Doing well. Shortness of breath is improving. Denies any hematemesis or melena. - Exam Vitals: Temp Pulse Resp BP Pulse Ox 98.4 F 92 16 128/87 98 09/19/18 13:46 09/19/18 13:46 09/19/18 13:46 09/19/18 13:46 09/19/18 13:46 Exam: General: Patient is alert, no acute distress, oriented x 3 Respiratory: Improved air entry bilaterally. Minimal bilateral wheezing. Cardiovascular: Regular rate and rhythm. s1 and s2 normal No clicks, rubs, gallops, or murmurs. No pedal edema Abdomen: Abdomen is soft, nontender. Bowel sounds are present Musculoskeletal: Spontaneously moving all extremities Skin: warm, dry, intact. Neuro: Alert oriented x 3 normal cranial nerves, no focal deficits - Assessment and Plan (1) Acute exacerbation of chronic obstructive airways disease Current Visit: Yes Status: Acute (2) Afib Current Visit: Yes Status: Chronic (3) DVT prophylaxis Current Visit: No Status: Acute (4) Metastatic melanoma Current Visit: Yes Status: Chronic (5) Anemia Current Visit: Yes Status: Chronic DVT Prophylaxis: On SCDs for DVT prophylaxis - Summary of Assessment and Plan Summary of Assessment and Plan: Acute exacerbation of COPD: Improving. Continue current management. Bronchodilators, Symbicort and prednisone. Chronic respiratory failure with hypoxia: Continue O2 supplementation Metastatic melanoma: Follow up with oncology. Anemia: hemoglobin 7.7 today. Underwent upper GI endoscopy. Found to have erosive gastritis. Nonbleeding angiodysplastic lesions also noted. Plan for colonoscopy tomorrow. Erosive gastritis: Continue PPI Prediabetes: Hemoglobin A1c 6.4%. Will place patient on diabetic diet. Atrial fibrillation: Rate controlled. Not on anticoagulation due to GI bleed. Moderate risk for complications - Time Spent with Patient Total time spent is greater than 50% in coordination of care (as documented) at patient's floor/unit and/or counseling patient: Internal Medicine: Result - Labs CBC & Chem 7: 09/19/18 04:23 09/19/18 04:22 Labs: Short CBC 09/19/18 Range/Units 04:23 WBC 6.6 (4.3-11.1) K/mcL Hgb 7.7 L (12.9-16.9) g/dL Hct 25.7 L (37.5-50.1) % Plt Count 289 (140-400) K/mcL Neutrophils # 5.1 (1.6-8.9) K/mcL [facility] 09/19/18 04:22 Sodium 140 Potassium 4.8 Chloride 102 Carbon Dioxide 32 H BUN 17 Creatinine 0.81 Glucose 127 H Calcium 8.6 Consult Discharge Plan - Plan Referrals: Saroj Phillips DO [Primary Care Provider] - (2) Afib Qualifiers: Atrial fibrillation type: chronic Qualified Code(s): I48.2 - Chronic atrial fibrillation (5) Anemia Qualifiers: Anemia type: unspecified type Qualified Code(s): D64.9 - Anemia, unspecified
[2018-09-19 15:40] LABS: Hematocrit 24.9 % (37.5-50.1); Hemoglobin 7.4 g/dL (12.9-16.9)
[2018-09-19] MEDS: predniSONE 20 MG TABLET PO SCH (16:38)
[2018-09-19] MEDS ORDERED: SODIUM CHLORIDE/NAHCO3/KCL/PEG 4,000 ML SOLN.RECON PO ONE (17:00)
[2018-09-19] MEDS ORDERED: Furosemide 40 MG TABLET PO SCH ×3 (17:00→21:00)
--- NOTE | 2018-09-19 19:25 | Anesthesia Evaluation PreOp ---
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 Admitted over weekend with anemia, transfused with 2 units.) Alcohol Use: occasionally Drug use: none Medications and Allergies Digoxin [Lanoxin] 0.125 mg PO DAILY 05/04/18 [History] Finasteride [Proscar] 5 mg PO DAILY 05/04/18 [History] Multivit-Min/FA/Lycopen/Lutein [Centrum Silver Tablet] 1 tab PO DAILY 05/04/18 [History] Omeprazole [PriLOSEC] 20 mg PO DAILY 05/04/18 [History] Tamsulosin [Flomax] 0.4 mg PO DAILY 05/04/18 [History] Potassium Chloride [K-Tab ER] 20 meq PO Q48H 05/05/18 [History] Binimetinib [Mektovi] 3 tab PO BID #180 tablet 07/08/18 [Rx] Encorafenib [Braftovi] 6 cap PO DAILY #180 capsule 07/08/18 [Rx] Docusate [Colace] 100 mg PO BID PRN #30 capsule 08/11/18 [Rx] Mirtazapine [Remeron] 15 mg PO HS #30 tablet 08/11/18 [Rx] Atorvastatin Calcium [Lipitor] 20 mg PO HS 09/18/18 [History] Cyanocobalamin (Vitamin B-12) [Vitamin B-12] 1,000 mcg SL DAILY 09/18/18 [History] Furosemide [Lasix] 40 mg PO HS 09/18/18 [History] Ipratropium/Albuterol Neb [Duoneb] 3 ml IH Q6HR PRN 09/18/18 [History] Metoprolol Tartrate 100 mg PO BID 09/18/18 [History] predniSONE [PredniSONE] 20 mg PO DAILY 09/18/18 [History] Allergy/AdvReac Type Severity Reaction Status Date / Time tape AdvReac Rash Uncoded 08/10/18 11:45 - Meds/Allergy Pre-op Review Medications Reviewed: Yes Allergies Reviewed: Yes Beta Blockers on Current Med List: Yes If Beta Blockers taken, Date/Time (Last Dose taken): 09:03 09/19/18 Anesthesia Results - Labs 09/19/18 15:03 09/19/18 04:22 - Imaging EKG: report reviewed (Atrial fibrillation Ventricular ectopy Electronically Signed On 09-18-2018 11:58:33 EDT by Nancy Coughlin) Anesthesia Exam Vital Signs/O2 Sat, Most Current Temp Pulse Resp BP Pulse Ox 97.3 F L 105 18 149/99 97 09/19/18 16:49 09/19/18 16:49 09/19/18 16:49 09/19/18 16:49 09/19/18 16:49 - HEENT Pupil (Motor): Pupils equal, EOMI Mallampati: II Teeth: Missing Oral Opening: Greater than 3 - ANGLESMITH HELPER LOC: Oriented ANGLESMITH HELPER Motor: Normal RUE, Normal LUE, Normal RLE, Normal LLE, Normal Face ANGLESMITH HELPER Sensory: Normal: RUE, LUE, RLE, LLE, Face - Cardiac Rhythm: Irregular Murmur: None JVD: No Carotid Bruit: No - Pulmonary Breath Sounds: bilateral Clear Respiratory Effort: Symmetrical Anesthesia Assess/Plan ASA Score: 3 Level of consciousness: Cooperative Anesthetic Plan: General Autologous Blood: Yes Monitoring Plan: Standard Monitors Recovery Plan: PACU
[2018-09-19] MEDS: Mirtazapine 15 MG TABLET PO SCH (20:04)
[2018-09-19] MEDS: BINIMETINIB 15 MG PO SCH (20:05)
[2018-09-20] MEDS: Ipratropium/Albuterol Neb 3 ML IH SCH ×3 (03:44→16:06)
[2018-09-20 04:23] LABS: White Blood Count 5.6 K/mcL (4.3-11.1)
[2018-09-20 04:24] LABS: Eosinophils % 0.2 %; Hematocrit 27.1 % (37.5-50.1); Hemoglobin 8.1 g/dL (12.9-16.9); Immature Granulocytes % 1.1 % (0-4); Lymphocytes # 1.3 K/mcL (0.6-4.6); Lymphocytes % 22.8 %; Mean Corpuscular HGB Conc 29.9 g/dL (31.6-35.5); Mean Corpuscular Volume 86.9 fL (83.0-100.0); Mean Platelet Volume 9.4 fL (9.4-12.4); Monocytes # 0.5 K/mcL (0.0-1.3); Monocytes % 8.8 %; Neutrophils # 3.7 K/mcL (1.6-8.9); Nucleated Red Blood Cells 0.4 /100 WBC (0); Platelet Count 301 K/mcL (140-400); Red Blood Count 3.12 M/mcL (4.19-5.50); Segmented Neutrophils % 67.1 %
[2018-09-20] MEDS: BINIMETINIB 15 MG PO SCH (08:09)
[2018-09-20] MEDS: predniSONE 20 MG TABLET PO SCH (08:09)
[2018-09-20] MEDS: Metoprolol 100 MG TABLET PO SCH (08:09)
[2018-09-20] MEDS: *HR* Digoxin 0.125 MG TABLET PO SCH (08:09)
[2018-09-20] MEDS: Finasteride 5 MG TABLET PO SCH (08:09)
[2018-09-20] MEDS ORDERED: Cyanocobalamin (B-12) 1,000 MCG TABLET PO SCH (09:00)
[2018-09-20] MEDS: Budesonide/Formoterol 160/4.5 1 PUFF INH IH SCH (10:06)
[2018-09-20] MEDS ORDERED: *HR* Propofol 200 MG/20 ML VIAL IVP ONE (13:18)
[2018-09-20] MEDS: Encorafenib [Braftovi] 75 MG PO SCH (13:46)
[2018-09-20 14:06] VITALS: BP 126/83
--- NOTE | 2018-09-20 15:37 | Discharge Summary ---
- NOTES TO OUTPATIENT PROVIDER Notes to Outpatient Provider: Patient with a history of COPD, atrial fibrillation, DVT, hypertension, melanoma, was hospitalized here with acute exacerbation of COPD. He was treated with antibiotics, steroids and bronchodilators. During his stay here, he was also noted to have anemia with iron deficiency. Gastroenterology was consulted as he previously had upper GI bleed. Patient underwent EGD and colonoscopy. Patient was found to have nonbleeding erosive gastropathy and nonbleeding angiodysplastic lesions in the stomach. Patient underwent colonoscopy which showed some hemorrhoids and diverticulosis but no active bleeding. Patient's hemoglobin levels have stabilized. He did receive intravenous iron and would benefit from continued oral iron therapy. He will be discharged home today on a steroid taper and will follow up with [facility] for further management. Orders not resulted at time of discharge: Pending orders 09/16/18 23:04 Culture,Blood [BC] Routine Date of Encounter: 09/20/18 Time of Encounter: 15:34 - Discharge Diagnosis (1) Acute exacerbation of chronic obstructive airways disease Priority: Primary Status: Acute (2) Afib Priority: Secondary Status: Chronic Qualifiers: Atrial fibrillation type: chronic Qualified Code(s): I48.2 - Chronic atrial fibrillation (3) Metastatic melanoma Priority: Secondary Status: Chronic (4) Anemia Priority: Secondary Status: Chronic Qualifiers: Anemia type: iron deficiency Iron deficiency anemia type: unspecified iron deficiency Qualified Code(s): D50.9 - Iron deficiency anemia, unspecified (5) DVT prophylaxis Priority: Secondary Status: Acute Hospital course: Mr. Drake is a 78 year old male Patient with a history of COPD, atrial fibrillation, DVT, hypertension, melanoma, was hospitalized here with acute exacerbation of COPD. He was treated with antibiotics, steroids and bronchodilators. During his stay here, he was also noted to have anemia with iron deficiency. Gastroenterology was consulted as he previously had upper GI bleed. Patient underwent EGD and colonoscopy. Patient was found to have nonbleeding erosive gastropathy and nonbleeding angiodysplastic lesions in the stomach. Patient underwent colonoscopy which showed some hemorrhoids and diverticulosis but no active bleeding. Patient's hemoglobin levels have stabilized. He did receive intravenous iron and would benefit from continued oral iron therapy. He will be discharged home today on a steroid taper and will follow up with [facility] for further management. Discharge discussed with: patient - Time Spent with Patient Total time spent providing and/or coordinating discharge services: Time spent: Greater than 30 minutes (40 min) - Discharge Medications Prescriptions: New predniSONE [PredniSONE] 10 mg PO DAILY #20 tablet Tiotropium [Spiriva] 18 mcg IH 0700 #30 capsule Budesonide/Formoterol 160/4.5 [Symbicort 160/4.5] 2 puff IH BIDR #1 inh Ferrous Sulfate 325 mg PO TIDWM #90 tablet Continued Omeprazole [PriLOSEC] 20 mg PO DAILY Finasteride [Proscar] 5 mg PO DAILY Digoxin [Lanoxin] 0.125 mg PO DAILY Tamsulosin [Flomax] 0.4 mg PO DAILY Multivit-Min/FA/Lycopen/Lutein [Centrum Silver Tablet] 1 tab PO DAILY Potassium Chloride [K-Tab ER] 20 meq PO Q48H Binimetinib [Mektovi] 3 tab PO BID #180 tablet Encorafenib [Braftovi] 6 cap PO DAILY #180 capsule Docusate [Colace] 100 mg PO BID PRN #30 capsule PRN Reason: Constipation Mirtazapine [Remeron] 15 mg PO HS #30 tablet Atorvastatin Calcium [Lipitor] 20 mg PO HS Cyanocobalamin (Vitamin B-12) [Vitamin B-12] 1,000 mcg SL DAILY Furosemide [Lasix] 40 mg PO HS Ipratropium/Albuterol Neb [Duoneb] 3 ml IH Q6HR PRN PRN Reason: Shortness Of Breath Metoprolol Tartrate 100 mg PO BID Discontinued predniSONE [PredniSONE] 20 mg PO DAILY Home Medications: Digoxin [Lanoxin] 0.125 mg PO DAILY 05/04/18 [History] Finasteride [Proscar] 5 mg PO DAILY 05/04/18 [History] Multivit-Min/FA/Lycopen/Lutein [Centrum Silver Tablet] 1 tab PO DAILY 05/04/18 [History] Omeprazole [PriLOSEC] 20 mg PO DAILY 05/04/18 [History] Tamsulosin [Flomax] 0.4 mg PO DAILY 05/04/18 [History] Potassium Chloride [K-Tab ER] 20 meq PO Q48H 05/05/18 [History] Binimetinib [Mektovi] 3 tab PO BID #180 tablet 07/08/18 [Rx] Encorafenib [Braftovi] 6 cap PO DAILY #180 capsule 07/08/18 [Rx] Docusate [Colace] 100 mg PO BID PRN #30 capsule 08/11/18 [Rx] Mirtazapine [Remeron] 15 mg PO HS #30 tablet 08/11/18 [Rx] Atorvastatin Calcium [Lipitor] 20 mg PO HS 09/18/18 [History] Cyanocobalamin (Vitamin B-12) [Vitamin B-12] 1,000 mcg SL DAILY 09/18/18 [History] Furosemide [Lasix] 40 mg PO HS 09/18/18 [History] Ipratropium/Albuterol Neb [Duoneb] 3 ml IH Q6HR PRN 09/18/18 [History] Metoprolol Tartrate 100 mg PO BID 09/18/18 [History] Budesonide/Formoterol 160/4.5 [Symbicort 160/4.5] 2 puff IH BIDR #1 inh 09/20/18 [Rx] Ferrous Sulfate 325 mg PO TIDWM #90 tablet 09/20/18 [Rx] Tiotropium [Spiriva] 18 mcg IH 0700 #30 capsule 09/20/18 [Rx] predniSONE [PredniSONE] 10 mg PO DAILY #20 tablet 09/20/18 [Rx] Allergies/Adverse Reactions: Allergy/AdvReac Type Severity Reaction Status Date / Time tape AdvReac Rash Uncoded 08/10/18 11:45 Date of admission: 09/18/18 13:09 Primary care physician: Saroj Phillips DO Consults: 09/16/18 21:38 Consult to Nutrition [CONS] Routine Comment: weight loss Consulting Provider: NUTRITION Reason for Dietary Consult: MST Score 09/16/18 22:40 Consult to Nurse Navigator [CONS] Routine Comment: 09/18/18 11:53 Consult to Gastroenterology [CONS] Routine Consulting Provider: Gastroenterology [place] Reason for Consult: Anemia/ EGD earlier this year showed upper GI bleed Time Notified: 11:53 Call Completed: No Discharging clinician: Nain Rodriguez Anticipated date of discharge: 09/20/18 - Constitutional Vitals: Temp Pulse Resp BP Pulse Ox 98.3 F 80 18 126/83 93 09/20/18 14:04 09/20/18 14:04 09/20/18 14:04 09/20/18 14:04 09/20/18 14:04 General appearance: Present: cooperative, A&O X 3, pleasant, no acute distress, answers questions appropriately Exam: General: Patient is alert, no acute distress, oriented x 3 Respiratory: Prolonged expiratory phase Cardiovascular: Regular rate and rhythm. s1 and s2 normal No clicks, rubs, gallops, or murmurs. No pedal edema Abdomen: Abdomen is soft, nontender. Bowel sounds are present Musculoskeletal: Spontaneously moving all extremities Skin: warm, dry, intact. Neuro: Alert oriented x 3 normal cranial nerves, no focal deficits - Patient Status Disposition: Home, Self-Care Condition: Good Functional capacity at discharge: independent ambulation Overall status at discharge: patient is progressing back to baseline - Discharge Instructions Instructions: Chronic Obstructive Pulmonary Disease (DC), Anemia (GEN), Chronic Hypertension (DC), Atrial Fibrillation (DC) Follow Up With: Saroj Phillips DO [Primary Care Provider] - 09/27/18 2:20 pm (Please follow up as schedule...) - Diet and Activity Activity: wear oxygen at all times Diet: low fat, low cholesterol, low salt diet
--- NOTE | 2018-09-20 15:59 | Anesthesia Evaluation Post Op ---
Date of Encounter: 09/20/18 Time of Encounter: 14:59 - Vital Signs Vital Signs: Vital Signs Time 1455 BP 106/58 Pulse 115 Resp 16 O2 Sat 98 - Lungs Lungs: Clear Ascult./Percussion - Airway Airway: Non-obstructed - Cardiovascular Irregular Rate, Baseline Rhythm - Mental Status Mental Status: Asleep with brisk response to light stimulation - Pain Pain Scale: 0 Pain Scale used: Numeric (1 - 10) - Nausea Vomiting Nausea Vomiting: Not Present - Hydration Hydration: NPO, Has not voided
--- NOTE | 2018-09-20 16:23 | Physician Discharge Referral ---
Home Health/Hosp Referral Info Transfer to: Home Health Provider in Charge Post Discharge: PCP - Diagnosis (1) Acute exacerbation of chronic obstructive airways disease Priority: Primary Status: Acute (2) Afib Priority: Secondary Status: Chronic (3) Metastatic melanoma Priority: Secondary Status: Chronic (4) Anemia Priority: Secondary Status: Chronic (5) DVT prophylaxis Priority: Secondary Status: Acute - Respiratory Orders Oxygen / L per min (3) Smoking Cessation: Smoking cessation has been advised. For more information, call the [place] Tobacco Quit Line at 9-479-HUHP-NOW. - Diet/Nutrition Diet/Nutrition Orders: Cardiac - Activity Activity Orders: Walker - Services Needed Following services are medically necessary services: Nursing, Home Health Aide - Transfer Medications Prescriptions: Ferrous Sulfate 325 mg PO TIDWM #90 tablet predniSONE [PredniSONE] 10 mg PO DAILY #20 tablet Tiotropium [Spiriva] 18 mcg IH 0700 #30 capsule Budesonide/Formoterol 160/4.5 [Symbicort 160/4.5] 2 puff IH BIDR #1 inh Home Medications: Digoxin [Lanoxin] 0.125 mg PO DAILY 05/04/18 [History] Finasteride [Proscar] 5 mg PO DAILY 05/04/18 [History] Multivit-Min/FA/Lycopen/Lutein [Centrum Silver Tablet] 1 tab PO DAILY 05/04/18 [History] Omeprazole [PriLOSEC] 20 mg PO DAILY 05/04/18 [History] Tamsulosin [Flomax] 0.4 mg PO DAILY 05/04/18 [History] Potassium Chloride [K-Tab ER] 20 meq PO Q48H 05/05/18 [History] Binimetinib [Mektovi] 3 tab PO BID #180 tablet 07/08/18 [Rx] Encorafenib [Braftovi] 6 cap PO DAILY #180 capsule 07/08/18 [Rx] Docusate [Colace] 100 mg PO BID PRN #30 capsule 08/11/18 [Rx] Mirtazapine [Remeron] 15 mg PO HS #30 tablet 08/11/18 [Rx] Atorvastatin Calcium [Lipitor] 20 mg PO HS 09/18/18 [History] Cyanocobalamin (Vitamin B-12) [Vitamin B-12] 1,000 mcg SL DAILY 09/18/18 [History] Furosemide [Lasix] 40 mg PO HS 09/18/18 [History] Ipratropium/Albuterol Neb [Duoneb] 3 ml IH Q6HR PRN 09/18/18 [History] Metoprolol Tartrate 100 mg PO BID 09/18/18 [History] Budesonide/Formoterol 160/4.5 [Symbicort 160/4.5] 2 puff IH BIDR #1 inh 09/20/18 [Rx] Ferrous Sulfate 325 mg PO TIDWM #90 tablet 09/20/18 [Rx] Tiotropium [Spiriva] 18 mcg IH 0700 #30 capsule 09/20/18 [Rx] predniSONE [PredniSONE] 10 mg PO DAILY #20 tablet 09/20/18 [Rx] Allergies/Adverse Reactions: Allergy/AdvReac Type Severity Reaction Status Date / Time tape AdvReac Rash Uncoded 08/10/18 11:45 Certification: Further, I certify that my clinical findings support that this patient is ho mebound (i.e. absences from home require considerable and taxing effort and are for medical reasons or restoration services or infrequently or short duration when for other reasons) because: Homebound Reason: Patient requires assistance of a person or device to safely leave home, Severity of cardiac or pulmonary status limits activity tolerance Attestation: My signature below is to certify that this patient is under my care and that I, or nurse practitioner, or a physician's court assistant working with me, has a [id number] encounter with this patient.
== END 2018-09-20 16:39 | disposition home or self-care (01) | DRG 191 ==
LOC: 2ANU 16:23 → EMEROOARM 16:23 → SUATTDRO 20:04 → 2ANU 20:33
PROVIDERS: ADMIT Pediatrics; ATTEND Internal Medicine

== ENCOUNTER 2019-04-19 14:09 | Inpatient (IN) ==
[2019-04-19] MEDS ORDERED: methylPREDNISolone 125 MG/2 ML VIAL IVP ONE (14:18)
[2019-04-19] MEDS ORDERED: Ipratropium/Albuterol Neb 3 ML IH ONE (14:18)
[2019-04-19] MEDS ORDERED: Isovue-370 500 ML BOTTLE IVP ONE (14:20)
[2019-04-19 14:41] LABS: Basophils % 0.4 %; Eosinophils # 0.5 K/mcL (0.0-0.6); Eosinophils % 7.2 %; Hematocrit 26.1 % (37.5-50.1); Immature Granulocytes % 0.3 % (0-4); Lymphocytes # 1.7 K/mcL (0.6-4.6); Mean Corpuscular HGB Conc 30.7 g/dL (31.6-35.5); Mean Corpuscular Hemoglobin 27.3 pg (28.0-33.3); Mean Corpuscular Volume 89.1 fL (83.0-100.0); Monocytes # 0.6 K/mcL (0.0-1.3); Monocytes % 8.3 %; Neutrophils # 4.3 K/mcL (1.6-8.9); Platelet Count 197 K/mcL (140-400); Red Blood Count 2.93 M/mcL (4.19-5.50); Segmented Neutrophils % 59.8 %; White Blood Count 7.1 K/mcL (4.3-11.1)
[2019-04-19 14:44] LABS: Prothrombin Time 11.1 Seconds (9.4-12.1)
[2019-04-19 14:47] LABS: Activated Partial Thrombo Time 25.9 Seconds (26.0-36.0)
[2019-04-19 15:09] LABS: BUN/Creatinine Ratio 29 (6-26); Blood Urea Nitrogen 22 mg/dL (8-23); Calcium 8.5 mg/dL (8.6-10.3); Carbon Dioxide 29 mEq/L (23-29); Chloride 105 mEq/L (98-107); Glucose 95 mg/dL (70-105); Osmolality,Calculated 289 (280-300); Potassium 4.3 mEq/L (3.5-5.1); Sodium 138 mEq/L (136-145); Troponin I < 0.03 ng/mL (< 0.04); eGFR For African Americans > 60 (> 60); eGFR For Non-African Americans > 60 (> 60)
[2019-04-19] MEDS ORDERED: Azithromycin 250 MG TABLET PO STA (16:16)
[2019-04-19] MEDS ORDERED: cefTRIAXone 1,000 MG in Water for inj. (sterile) 10 ML IVP STA (16:16)
[2019-04-19] MEDS ORDERED: *HR* Promethazine 25 MG/ML VIAL IVP PRN (17:06)
[2019-04-19] MEDS ORDERED: Naloxone 0.4 MG/ML INJ IVP PRN (17:06)
[2019-04-19] MEDS: Pantoprazole 40 MG VIAL IVP SCH (19:11)
[2019-04-19] MEDS: Ipratropium/Albuterol Neb 3 ML IH SCH ×2 (20:08→23:46)
[2019-04-19] MEDS: Budesonide/Formoterol 160/4.5 1 PUFF INH IH SCH (20:08)
[2019-04-19] MEDS: Metoprolol 100 MG TABLET PO SCH (21:39)
[2019-04-19] MEDS: Mirtazapine 15 MG TABLET PO SCH (21:39)
[2019-04-19] MEDS: MethylPREDNISolone 40 MG/ML VIAL IVP SCH (23:45)
[2019-04-20] MEDS: Ipratropium/Albuterol Neb 3 ML IH SCH ×6 (03:34→23:34)
[2019-04-20 04:34] LABS: Basophils % 0.2 %; Hematocrit 25.3 % (37.5-50.1); Hemoglobin 7.9 g/dL (12.9-16.9); Immature Granulocytes % 0.6 % (0-4); Lymphocytes # 0.6 K/mcL (0.6-4.6); Lymphocytes % 11.9 %; Mean Corpuscular HGB Conc 31.2 g/dL (31.6-35.5); Mean Corpuscular Hemoglobin 27.5 pg (28.0-33.3); Mean Corpuscular Volume 88.2 fL (83.0-100.0); Mean Platelet Volume 10.2 fL (9.4-12.4); Monocytes # 0.1 K/mcL (0.0-1.3); Monocytes % 2.2 %; Neutrophils # 4.6 K/mcL (1.6-8.9); Platelet Count 196 K/mcL (140-400); Red Blood Count 2.87 M/mcL (4.19-5.50); Red Cell Distribution Width 16.2 % (11.5-14.5); Segmented Neutrophils % 85.1 %; White Blood Count 5.4 K/mcL (4.3-11.1)
[2019-04-20 04:52] LABS: BUN/Creatinine Ratio 26 (6-26); Blood Urea Nitrogen 19 mg/dL (8-23); Calcium 8.5 mg/dL (8.6-10.3); Carbon Dioxide 28 mEq/L (23-29); Chloride 105 mEq/L (98-107); Glucose 144 mg/dL (70-105); Magnesium 1.8 mg/dL (1.6-2.6); Osmolality,Calculated 291 (280-300); Phosphorous 3.6 mg/dL (2.7-4.5); Potassium 4.2 mEq/L (3.5-5.1); Sodium 138 mEq/L (136-145); eGFR For African Americans > 60 (> 60); eGFR For Non-African Americans > 60 (> 60)
[2019-04-20] MEDS: Pantoprazole 40 MG VIAL IVP SCH ×2 (05:32→17:20)
[2019-04-20] MEDS: Budesonide/Formoterol 160/4.5 1 PUFF INH IH SCH ×2 (07:36→19:55)
[2019-04-20] MEDS ORDERED: [UNRECOGNIZED DRUG - OTHER] PO SCH (09:00)
[2019-04-20] MEDS ORDERED: Patient Taking Own Medication 1 EACH PO SCH (09:00)
[2019-04-20] MEDS ORDERED: BRAFTOVI PO SCH (09:00)
[2019-04-20] MEDS: Metoprolol 100 MG TABLET PO SCH ×2 (09:04→20:32)
[2019-04-20] MEDS: Azithromycin 250 MG TABLET PO SCH (09:04)
[2019-04-20] MEDS: MethylPREDNISolone 40 MG/ML VIAL IVP SCH (09:04)
[2019-04-20 09:36] LABS: Basophils % 0.3 %; Eosinophils % 0.3 %; Hematocrit 24.4 % (37.5-50.1); Hemoglobin 7.6 g/dL (12.9-16.9); Immature Granulocytes % 0.7 % (0-4); Lymphocytes # 1.2 K/mcL (0.6-4.6); Lymphocytes % 20.8 %; Mean Corpuscular HGB Conc 31.1 g/dL (31.6-35.5); Mean Corpuscular Hemoglobin 27.9 pg (28.0-33.3); Mean Corpuscular Volume 89.7 fL (83.0-100.0); Mean Platelet Volume 10.1 fL (9.4-12.4); Monocytes # 0.5 K/mcL (0.0-1.3); Monocytes % 8.3 %; Neutrophils # 4.1 K/mcL (1.6-8.9); Platelet Count 181 K/mcL (140-400); Red Blood Count 2.72 M/mcL (4.19-5.50); Red Cell Distribution Width 16.4 % (11.5-14.5); Segmented Neutrophils % 69.6 %; White Blood Count 5.9 K/mcL (4.3-11.1)
[2019-04-20 13:52] LABS: % Iron Saturation 8 % (20-55); Iron 23 mcg/dL (65-175); Transferrin 209 mg/dL (203-362)
[2019-04-20] MEDS: *HR* Digoxin 0.125 MG TABLET PO SCH (13:53)
[2019-04-20] MEDS: Hydrocortisone Acetate 25 MG RECTAL SUPPOSITORY RC SCH ×2 (13:53→20:32)
[2019-04-20] MEDS: BRAFTOVI PO SCH (13:55)
[2019-04-20 14:16] LABS: Folate > 22.3 ng/mL (3.0-16.0); Vitamin B12 770 pg/mL (250-1100)
[2019-04-20] MEDS: Mirtazapine 15 MG TABLET PO SCH (20:32)
[2019-04-20] MEDS: [UNRECOGNIZED DRUG - OTHER] PO SCH (20:32)
[2019-04-21] MEDS: Ipratropium/Albuterol Neb 3 ML IH SCH ×6 (03:21→23:50)
[2019-04-21] MEDS: Pantoprazole 40 MG VIAL IVP SCH ×2 (05:15→18:01)
[2019-04-21 05:42] LABS: Basophils % 0.2 %; Eosinophils # 0.3 K/mcL (0.0-0.6); Eosinophils % 3.9 %; Hematocrit 22.8 % (37.5-50.1); Immature Granulocytes % 0.5 % (0-4); Lymphocytes # 2.1 K/mcL (0.6-4.6); Lymphocytes % 31.2 %; Mean Corpuscular HGB Conc 30.7 g/dL (31.6-35.5); Mean Corpuscular Hemoglobin 27.8 pg (28.0-33.3); Mean Corpuscular Volume 90.5 fL (83.0-100.0); Mean Platelet Volume 10.1 fL (9.4-12.4); Monocytes # 0.5 K/mcL (0.0-1.3); Monocytes % 7.7 %; Neutrophils # 3.8 K/mcL (1.6-8.9); Platelet Count 199 K/mcL (140-400); Red Blood Count 2.52 M/mcL (4.19-5.50); Red Cell Distribution Width 16.7 % (11.5-14.5); Segmented Neutrophils % 56.5 %; White Blood Count 6.6 K/mcL (4.3-11.1)
[2019-04-21 06:08] LABS: BUN/Creatinine Ratio 28 (6-26); Blood Urea Nitrogen 26 mg/dL (8-23); Calcium 8.2 mg/dL (8.6-10.3); Carbon Dioxide 31 mEq/L (23-29); Chloride 107 mEq/L (98-107); Glucose 96 mg/dL (70-105); Osmolality,Calculated 295 (280-300); Phosphorous 4.1 mg/dL (2.7-4.5); Potassium 4.3 mEq/L (3.5-5.1); Sodium 140 mEq/L (136-145); eGFR For African Americans > 60 (> 60); eGFR For Non-African Americans > 60 (> 60)
[2019-04-21] MEDS ORDERED: *HR* FentaNYL (PF) 100 MCG/2 ML VIAL ONE (07:19)
[2019-04-21] MEDS ORDERED: *HR* Midazolam HCl 5 MG/5 ML VIAL IVP ONE (07:19)
[2019-04-21] MEDS ORDERED: *HR* Propofol 200 MG/20 ML VIAL IVP ONE (07:57)
[2019-04-21] MEDS ORDERED: Lidocaine -MPF 2% 2 ML VIAL ONE (07:58)
[2019-04-21] MEDS ORDERED: 0.9 % Sodium Chloride 250 ML ONE ×2 (09:42→14:14)
[2019-04-21] MEDS: Metoprolol 100 MG TABLET PO SCH ×2 (09:59→20:57)
[2019-04-21] MEDS: Finasteride 5 MG TABLET PO SCH (09:59)
[2019-04-21] MEDS: *HR* Digoxin 0.125 MG TABLET PO SCH (10:00)
[2019-04-21] MEDS: Cyanocobalamin (B-12) 1,000 MCG TABLET PO SCH (10:00)
[2019-04-21] MEDS: MethylPREDNISolone 40 MG/ML VIAL IVP SCH (10:00)
[2019-04-21] MEDS: Azithromycin 250 MG TABLET PO SCH (10:00)
[2019-04-21] MEDS: [UNRECOGNIZED DRUG - OTHER] PO SCH ×2 (10:01→20:57)
[2019-04-21] MEDS: Hydrocortisone Acetate 25 MG RECTAL SUPPOSITORY RC SCH ×2 (10:01→20:58)
[2019-04-21] MEDS: Budesonide/Formoterol 160/4.5 1 PUFF INH IH SCH ×2 (11:26→20:39)
[2019-04-21] MEDS: BRAFTOVI PO SCH (13:25)
[2019-04-21] MEDS ORDERED: Iron Sucrose Complex 400 MG in 0.9 % Sodium Chloride 250 ML IVPB ONE (18:00)
[2019-04-21] MEDS: Mirtazapine 15 MG TABLET PO SCH (20:57)
[2019-04-22] MEDS: Ipratropium/Albuterol Neb 3 ML IH SCH ×5 (03:35→20:18)
[2019-04-22] MEDS: Pantoprazole 40 MG VIAL IVP SCH ×2 (05:34→17:29)
[2019-04-22] MEDS: Budesonide/Formoterol 160/4.5 1 PUFF INH IH SCH ×2 (07:59→20:18)
[2019-04-22] MEDS: Finasteride 5 MG TABLET PO SCH (08:32)
[2019-04-22] MEDS: Hydrocortisone Acetate 25 MG RECTAL SUPPOSITORY RC SCH ×2 (08:33→21:12)
[2019-04-22] MEDS: *HR* Digoxin 0.125 MG TABLET PO SCH (08:33)
[2019-04-22] MEDS: Cyanocobalamin (B-12) 1,000 MCG TABLET PO SCH (08:33)
[2019-04-22] MEDS: Metoprolol 100 MG TABLET PO SCH ×2 (08:33→21:11)
[2019-04-22] MEDS: Azithromycin 250 MG TABLET PO SCH (08:33)
[2019-04-22] MEDS: MethylPREDNISolone 40 MG/ML VIAL IVP SCH (08:33)
[2019-04-22] MEDS: [UNRECOGNIZED DRUG - OTHER] PO SCH ×2 (08:34→21:11)
[2019-04-22] MEDS ORDERED: Milk and Molasses Enema 200 ML RC ONE (10:30)
[2019-04-22 10:46] LABS: Basophils % 0.4 %; Eosinophils # 0.2 K/mcL (0.0-0.6); Eosinophils % 3.5 %; Hematocrit 26.7 % (37.5-50.1); Hemoglobin 8.2 g/dL (12.9-16.9); Immature Granulocytes % 0.9 % (0-4); Lymphocytes # 1.1 K/mcL (0.6-4.6); Lymphocytes % 15.5 %; Mean Corpuscular HGB Conc 30.7 g/dL (31.6-35.5); Mean Corpuscular Volume 91.1 fL (83.0-100.0); Monocytes # 0.5 K/mcL (0.0-1.3); Monocytes % 7.8 %; Neutrophils # 4.9 K/mcL (1.6-8.9); Platelet Count 207 K/mcL (140-400); Red Blood Count 2.93 M/mcL (4.19-5.50); Red Cell Distribution Width 16.6 % (11.5-14.5); Segmented Neutrophils % 71.9 %; White Blood Count 6.8 K/mcL (4.3-11.1)
[2019-04-22] MEDS ORDERED: 0.9 % Sodium Chloride 1,000 ML IVC ONE (10:47)
[2019-04-22 11:04] LABS: BUN/Creatinine Ratio 26 (6-26); Blood Urea Nitrogen 25 mg/dL (8-23); Calcium 8.2 mg/dL (8.6-10.3); Carbon Dioxide 28 mEq/L (23-29); Chloride 106 mEq/L (98-107); Glucose 127 mg/dL (70-105); Magnesium 1.8 mg/dL (1.6-2.6); Osmolality,Calculated 294 (280-300); Phosphorous 3.1 mg/dL (2.7-4.5); Potassium 4.3 mEq/L (3.5-5.1); Sodium 139 mEq/L (136-145); eGFR For African Americans > 60 (> 60); eGFR For Non-African Americans > 60 (> 60)
[2019-04-22] MEDS ORDERED: Lactulose Oral Soln 20 GM/30 ML UDC PO ONE (11:07)
[2019-04-22] MEDS: 0.9 % Sodium Chloride 1,000 ML IVC SCH (14:07)
[2019-04-22] MEDS: BRAFTOVI PO SCH (14:07)
[2019-04-22 19:44] LABS: Hematocrit 25.4 % (37.5-50.1); Hemoglobin 7.8 g/dL (12.9-16.9); Mean Corpuscular HGB Conc 30.7 g/dL (31.6-35.5); Mean Corpuscular Hemoglobin 27.9 pg (28.0-33.3); Mean Corpuscular Volume 90.7 fL (83.0-100.0); Mean Platelet Volume 10.2 fL (9.4-12.4); Platelet Count 208 K/mcL (140-400); Red Cell Distribution Width 16.4 % (11.5-14.5); White Blood Count 8.2 K/mcL (4.3-11.1)
[2019-04-22] MEDS ORDERED: 0.9 % Sodium Chloride 250 ML ONE (20:52)
[2019-04-22] MEDS: Mirtazapine 15 MG TABLET PO SCH (21:11)
[2019-04-23] MEDS: Ipratropium/Albuterol Neb 3 ML IH SCH ×7 (00:12→23:11)
[2019-04-23] MEDS: 0.9 % Sodium Chloride 1,000 ML IVC SCH ×4 (03:11→21:20)
[2019-04-23 03:25] LABS: Basophils # 0.1 K/mcL (0.0-0.2); Basophils % 0.6 %; Eosinophils # 0.3 K/mcL (0.0-0.6); Eosinophils % 3.9 %; Hematocrit 25.3 % (37.5-50.1); Immature Granulocytes % 1.6 % (0-4); Lymphocytes % 23.1 %; Mean Corpuscular HGB Conc 31.6 g/dL (31.6-35.5); Mean Corpuscular Hemoglobin 28.7 pg (28.0-33.3); Mean Corpuscular Volume 90.7 fL (83.0-100.0); Mean Platelet Volume 10.1 fL (9.4-12.4); Monocytes # 0.8 K/mcL (0.0-1.3); Monocytes % 8.9 %; Neutrophils # 5.3 K/mcL (1.6-8.9); Nucleated Red Blood Cells 0.4 /100 WBC (0); Platelet Count 185 K/mcL (140-400); Red Blood Count 2.79 M/mcL (4.19-5.50); Red Cell Distribution Width 16.1 % (11.5-14.5); Segmented Neutrophils % 61.9 %; White Blood Count 8.5 K/mcL (4.3-11.1)
[2019-04-23 03:35] LABS: BUN/Creatinine Ratio 26 (6-26); Blood Urea Nitrogen 24 mg/dL (8-23); Calcium 7.8 mg/dL (8.6-10.3); Carbon Dioxide 26 mEq/L (23-29); Chloride 109 mEq/L (98-107); Glucose 91 mg/dL (70-105); Magnesium 1.8 mg/dL (1.6-2.6); Osmolality,Calculated 292 (280-300); Phosphorous 3.5 mg/dL (2.7-4.5); Sodium 139 mEq/L (136-145); eGFR For African Americans > 60 (> 60); eGFR For Non-African Americans > 60 (> 60)
[2019-04-23] MEDS: Pantoprazole 40 MG VIAL IVP SCH ×2 (06:26→16:18)
[2019-04-23] MEDS: Budesonide/Formoterol 160/4.5 1 PUFF INH IH SCH ×2 (07:32→20:11)
[2019-04-23] MEDS ORDERED: 0.9 % Sodium Chloride 250 ML ONE (08:07)
[2019-04-23] MEDS: *HR* Digoxin 0.125 MG TABLET PO SCH (08:11)
[2019-04-23] MEDS: Finasteride 5 MG TABLET PO SCH (08:11)
[2019-04-23] MEDS: Cyanocobalamin (B-12) 1,000 MCG TABLET PO SCH (08:11)
[2019-04-23] MEDS: Azithromycin 250 MG TABLET PO SCH (08:11)
[2019-04-23] MEDS: Metoprolol 100 MG TABLET PO SCH ×2 (08:11→21:21)
[2019-04-23] MEDS: MethylPREDNISolone 40 MG/ML VIAL IVP SCH (08:12)
[2019-04-23] MEDS: Hydrocortisone Acetate 25 MG RECTAL SUPPOSITORY RC SCH ×2 (08:12→21:21)
[2019-04-23] MEDS: SODIUM CHLORIDE/NAHCO3/KCL/PEG 4,000 ML SOLN.RECON PO ONE ×2 (08:12→09:12)
[2019-04-23] MEDS: [UNRECOGNIZED DRUG - OTHER] PO SCH ×2 (08:13→21:21)
[2019-04-23] MEDS: BRAFTOVI PO SCH (16:19)
[2019-04-23] MEDS: Mirtazapine 15 MG TABLET PO SCH (21:21)
[2019-04-24] MEDS: 0.9 % Sodium Chloride 1,000 ML IVC SCH ×3 (01:53→20:34)
[2019-04-24] MEDS: Ipratropium/Albuterol Neb 3 ML IH SCH ×6 (03:42→23:52)
[2019-04-24 04:54] LABS: Basophils % 0.3 %; Eosinophils # 0.3 K/mcL (0.0-0.6); Hematocrit 27.2 % (37.5-50.1); Hemoglobin 8.4 g/dL (12.9-16.9); Immature Granulocytes % 1.2 % (0-4); Lymphocytes # 1.3 K/mcL (0.6-4.6); Lymphocytes % 22.1 %; Mean Corpuscular HGB Conc 30.9 g/dL (31.6-35.5); Mean Corpuscular Volume 90.7 fL (83.0-100.0); Mean Platelet Volume 9.8 fL (9.4-12.4); Monocytes # 0.5 K/mcL (0.0-1.3); Monocytes % 8.7 %; Neutrophils # 3.7 K/mcL (1.6-8.9); Platelet Count 182 K/mcL (140-400); Red Cell Distribution Width 17.2 % (11.5-14.5); Segmented Neutrophils % 62.7 %
[2019-04-24 05:40] LABS: BUN/Creatinine Ratio 13 (6-26); Blood Urea Nitrogen 11 mg/dL (8-23); Calcium 7.9 mg/dL (8.6-10.3); Carbon Dioxide 29 mEq/L (23-29); Chloride 108 mEq/L (98-107); Glucose 97 mg/dL (70-105); Magnesium 1.7 mg/dL (1.6-2.6); Osmolality,Calculated 289 (280-300); Phosphorous 3.2 mg/dL (2.7-4.5); Potassium 3.7 mEq/L (3.5-5.1); Sodium 140 mEq/L (136-145); eGFR For African Americans > 60 (> 60); eGFR For Non-African Americans > 60 (> 60)
[2019-04-24] MEDS: Pantoprazole 40 MG VIAL IVP SCH ×2 (05:58→18:52)
[2019-04-24] MEDS: Budesonide/Formoterol 160/4.5 1 PUFF INH IH SCH ×2 (07:47→20:16)
[2019-04-24] MEDS: *HR* Digoxin 0.125 MG TABLET PO SCH (08:25)
[2019-04-24] MEDS: Cyanocobalamin (B-12) 1,000 MCG TABLET PO SCH (08:25)
[2019-04-24] MEDS: MethylPREDNISolone 40 MG/ML VIAL IVP SCH (08:25)
[2019-04-24] MEDS: Finasteride 5 MG TABLET PO SCH (08:26)
[2019-04-24] MEDS: Azithromycin 250 MG TABLET PO SCH (08:26)
[2019-04-24] MEDS: [UNRECOGNIZED DRUG - OTHER] PO SCH ×2 (08:26→20:33)
[2019-04-24] MEDS: Metoprolol 100 MG TABLET PO SCH ×2 (08:26→20:34)
[2019-04-24] MEDS: Hydrocortisone Acetate 25 MG RECTAL SUPPOSITORY RC SCH ×2 (08:27→20:35)
[2019-04-24] MEDS ORDERED: Lidocaine -MPF 2% 2 ML VIAL ONE (13:05)
[2019-04-24] MEDS ORDERED: *HR* Propofol 200 MG/20 ML VIAL IVP ONE (14:13)
[2019-04-24] MEDS: BRAFTOVI PO SCH (16:41)
[2019-04-24] MEDS: Mirtazapine 15 MG TABLET PO SCH (20:34)
[2019-04-25] MEDS: Ipratropium/Albuterol Neb 3 ML IH SCH ×6 (03:35→23:41)
[2019-04-25] MEDS: 0.9 % Sodium Chloride 1,000 ML IVC SCH ×3 (04:00→18:52)
[2019-04-25 05:01] LABS: Prothrombin Time 11.3 Seconds (9.4-12.1)
[2019-04-25 05:05] LABS: Basophils % 0.4 %; Eosinophils # 0.3 K/mcL (0.0-0.6); Eosinophils % 4.9 %; Hematocrit 27.8 % (37.5-50.1); Hemoglobin 8.5 g/dL (12.9-16.9); Immature Granulocytes % 0.7 % (0-4); Lymphocytes # 1.5 K/mcL (0.6-4.6); Mean Corpuscular HGB Conc 30.6 g/dL (31.6-35.5); Mean Corpuscular Hemoglobin 28.2 pg (28.0-33.3); Mean Corpuscular Volume 92.4 fL (83.0-100.0); Mean Platelet Volume 9.9 fL (9.4-12.4); Monocytes # 0.4 K/mcL (0.0-1.3); Monocytes % 7.7 %; Neutrophils # 3.3 K/mcL (1.6-8.9); Platelet Count 212 K/mcL (140-400); Red Blood Count 3.01 M/mcL (4.19-5.50); Red Cell Distribution Width 17.5 % (11.5-14.5); Segmented Neutrophils % 59.3 %; White Blood Count 5.6 K/mcL (4.3-11.1)
[2019-04-25] MEDS: Pantoprazole 40 MG VIAL IVP SCH (05:12)
[2019-04-25 05:27] LABS: BUN/Creatinine Ratio 11 (6-26); Blood Urea Nitrogen 9 mg/dL (8-23); Carbon Dioxide 28 mEq/L (23-29); Chloride 109 mEq/L (98-107); Glucose 86 mg/dL (70-105); Magnesium 1.8 mg/dL (1.6-2.6); Osmolality,Calculated 288 (280-300); Sodium 140 mEq/L (136-145); eGFR For African Americans > 60 (> 60); eGFR For Non-African Americans > 60 (> 60)
[2019-04-25] MEDS: Cyanocobalamin (B-12) 1,000 MCG TABLET PO SCH (07:50)
[2019-04-25] MEDS: *HR* Digoxin 0.125 MG TABLET PO SCH (07:50)
[2019-04-25] MEDS: Finasteride 5 MG TABLET PO SCH (07:50)
[2019-04-25] MEDS: Metoprolol 100 MG TABLET PO SCH ×2 (07:50→20:36)
[2019-04-25] MEDS: [UNRECOGNIZED DRUG - OTHER] PO SCH ×2 (07:51→20:36)
[2019-04-25] MEDS: Budesonide/Formoterol 160/4.5 1 PUFF INH IH SCH ×2 (07:59→20:20)
[2019-04-25] MEDS ORDERED: predniSONE 20 MG TABLET PO SCH (09:00)
[2019-04-25] MEDS: Hydrocortisone Acetate 25 MG RECTAL SUPPOSITORY RC SCH ×2 (10:22→20:36)
[2019-04-25] MEDS: Sucralfate 1 GM TABLET PO SCH ×2 (11:11→17:06)
[2019-04-25] MEDS: BRAFTOVI PO SCH (13:37)
[2019-04-25] MEDS: Mirtazapine 15 MG TABLET PO SCH (20:36)
[2019-04-26] MEDS: Ipratropium/Albuterol Neb 3 ML IH SCH ×3 (03:24→11:15)
[2019-04-26 05:12] LABS: Basophils % 0.4 %; Eosinophils # 0.4 K/mcL (0.0-0.6); Eosinophils % 4.8 %; Hematocrit 27.6 % (37.5-50.1); Hemoglobin 8.3 g/dL (12.9-16.9); Immature Granulocytes % 0.8 % (0-4); Lymphocytes # 1.3 K/mcL (0.6-4.6); Mean Corpuscular HGB Conc 30.1 g/dL (31.6-35.5); Mean Corpuscular Hemoglobin 28.1 pg (28.0-33.3); Mean Corpuscular Volume 93.6 fL (83.0-100.0); Mean Platelet Volume 9.4 fL (9.4-12.4); Monocytes # 0.5 K/mcL (0.0-1.3); Monocytes % 6.2 %; Neutrophils # 5.1 K/mcL (1.6-8.9); Platelet Count 209 K/mcL (140-400); Red Blood Count 2.95 M/mcL (4.19-5.50); Red Cell Distribution Width 17.9 % (11.5-14.5); Segmented Neutrophils % 69.8 %; White Blood Count 7.3 K/mcL (4.3-11.1)
[2019-04-26 05:29] LABS: BUN/Creatinine Ratio 10 (6-26); Blood Urea Nitrogen 10 mg/dL (8-23); Calcium 8.3 mg/dL (8.6-10.3); Carbon Dioxide 26 mEq/L (23-29); Chloride 110 mEq/L (98-107); Glucose 106 mg/dL (70-105); Magnesium 1.7 mg/dL (1.6-2.6); Osmolality,Calculated 289 (280-300); Phosphorous 3.9 mg/dL (2.7-4.5); Sodium 140 mEq/L (136-145); eGFR For African Americans > 60 (> 60); eGFR For Non-African Americans > 60 (> 60)
[2019-04-26] MEDS: Budesonide/Formoterol 160/4.5 1 PUFF INH IH SCH (07:27)
[2019-04-26] MEDS: Finasteride 5 MG TABLET PO SCH (07:41)
[2019-04-26] MEDS: Sucralfate 1 GM TABLET PO SCH ×2 (07:41→11:52)
[2019-04-26] MEDS: Metoprolol 100 MG TABLET PO SCH (07:41)
[2019-04-26] MEDS: Cyanocobalamin (B-12) 1,000 MCG TABLET PO SCH (07:41)
[2019-04-26] MEDS: *HR* Digoxin 0.125 MG TABLET PO SCH (07:41)
[2019-04-26] MEDS: [UNRECOGNIZED DRUG - OTHER] PO SCH (07:42)
[2019-04-26 10:32] VITALS: BP 117/71
[2019-04-26] MEDS: 0.9 % Sodium Chloride 1,000 ML IVC SCH (14:11)
[2019-04-26] MEDS: Hydrocortisone Acetate 25 MG RECTAL SUPPOSITORY RC SCH (14:12)
[2019-04-26] MEDS: BRAFTOVI PO SCH (14:13)
== END 2019-04-26 14:39 | disposition home or self-care (01) ==
LOC: EMEROOARM 14:09 → 3ANU 14:09 → SUATTDRO 04-20 18:13
PROVIDERS: ADMIT Internal Medicine; ATTEND Internal Medicine

== ENCOUNTER 2019-07-23 22:47 | Inpatient (IN) ==
[2019-07-24] MEDS: FentaNYL (PF) 1,000 MCG/100 ML IV.SOLN IVC SCH ×2 (02:13→08:45)
[2019-07-24] MEDS ORDERED: Naloxone 0.4 MG/ML INJ IVP PRN (03:22)
[2019-07-24] MEDS ORDERED: Artificial Tears SOLN 15 ML BOTTLE BOTH EYES PRN (03:25)
[2019-07-24] MEDS: Artificial Tears SOLN 15 ML BOTTLE BOTH EYES SCH ×6 (04:11→23:04)
[2019-07-24 04:34] LABS: ABG Base Excess 2 mEq/L (-2 to 3); ABG HCO3 30 mEq/L (21-27); ABG Oxygen Saturation 100 % (95-98); ABG PCO2 61 mmHg (35-45); ABG PO2 541 mmHg (85-104); ABG TCO2 32 mEq/L (20-26); Blood Gas Modality AF; Blood Gas VT 500 cc
[2019-07-24 05:23] LABS: Basophils % 0.3 %; Eosinophils % 0.5 %; Hematocrit 30.9 % (37.5-50.1); Hemoglobin 9.1 g/dL (12.9-16.9); Immature Granulocytes % 0.5 % (0-4); Lymphocytes # 0.5 K/mcL (0.6-4.6); Lymphocytes % 8.8 %; Mean Corpuscular HGB Conc 29.4 g/dL (31.6-35.5); Mean Corpuscular Hemoglobin 25.1 pg (28.0-33.3); Mean Corpuscular Volume 85.4 fL (83.0-100.0); Mean Platelet Volume 9.8 fL (9.4-12.4); Monocytes # 0.6 K/mcL (0.0-1.3); Monocytes % 9.8 %; Neutrophils # 4.8 K/mcL (1.6-8.9); Platelet Count 212 K/mcL (140-400); Red Blood Count 3.62 M/mcL (4.19-5.50); Red Cell Distribution Width 17.7 % (11.5-14.5); Segmented Neutrophils % 80.1 %
[2019-07-24] MEDS ORDERED: Furosemide 20 MG/2 ML VIAL IVP ONE (05:24)
[2019-07-24 05:41] LABS: BUN/Creatinine Ratio 19 (6-26); Blood Urea Nitrogen 17 mg/dL (8-23); Carbon Dioxide 27 mEq/L (23-29); Chloride 103 mEq/L (98-107); Glucose 117 mg/dL (70-105); Osmolality,Calculated 285 (280-300); Potassium 4.4 mEq/L (3.5-5.1); Sodium 136 mEq/L (136-145); eGFR For African Americans > 60 (> 60); eGFR For Non-African Americans > 60 (> 60)
[2019-07-24] MEDS ORDERED: *HR* Heparin 5,000 UNIT/ML VIAL IVP ONE (06:20)
[2019-07-24 06:38] LABS: Lactate Dehydrogenase 147 Units/L (140-271); Phosphorous 3.8 mg/dL (2.7-4.5); Uric Acid 4.8 mg/dL (2.3-7.6)
[2019-07-24 07:47] LABS: INR 1.1; Prothrombin Time 12.3 Seconds (9.4-12.1)
[2019-07-24] MEDS: Heparin 25,000 UNIT/250 ML D5W 25,000 UNIT/250 ML IV.SOLN IVC SCH (07:49)
[2019-07-24 07:51] LABS: Hemoglobin 9.2 g/dL (12.9-16.9); Mean Corpuscular Volume 84.6 fL (83.0-100.0)
[2019-07-24 07:52] LABS: Hematocrit 31.2 % (37.5-50.1); Mean Corpuscular HGB Conc 29.5 g/dL (31.6-35.5); Mean Corpuscular Hemoglobin 24.9 pg (28.0-33.3); Mean Platelet Volume 9.9 fL (9.4-12.4); Platelet Count 193 K/mcL (140-400); Red Blood Count 3.69 M/mcL (4.19-5.50); Red Cell Distribution Width 17.6 % (11.5-14.5); White Blood Count 6.4 K/mcL (4.3-11.1)
[2019-07-24 08:09] LABS: Activated Partial Thrombo Time 23.2 Seconds (26.0-36.0)
[2019-07-24] MEDS: Chlorhexidine Rinse 15 ML MOUTHWASH MM SCH ×2 (08:12→19:24)
[2019-07-24] MEDS: Pantoprazole 40 MG VIAL IVP SCH (08:12)
[2019-07-24 08:34] LABS: Amphetamine Screen,Urine Negative ng/mL (Cutoff=1000); Barbiturate Screen,Urine Negative ng/mL (Cutoff=200); Benzodiazepines Screen,Urine Positive ng/mL (Cutoff=200); Cannabinoid Screen,Urine Negative ng/mL (Cutoff = 50); Cocaine Screen,Urine Negative ng/mL (Cutoff= 300); Opiate Screen,Urine Negative ng/mL (Cutoff=300); Phencyclidine Screen,Urine Negative ng/mL (Cutoff=25)
[2019-07-24] MEDS: *HR* Heparin 5,000 UNIT/ML VIAL IVP PRN (22:05)
[2019-07-25] MEDS: FentaNYL (PF) 1,000 MCG/100 ML IV.SOLN IVC SCH (00:12)
[2019-07-25 04:35] LABS: ABG Base Excess 8 mEq/L (-2 to 3); ABG HCO3 33 mEq/L (21-27); ABG Oxygen Saturation 100 % (95-98); ABG PCO2 45 mmHg (35-45); ABG PH 7.47 pH Units (7.32-7.45); ABG PO2 181 mmHg (85-104); ABG TCO2 34 mEq/L (20-26); Blood Gas Modality AF; Blood Gas VT 500 cc
[2019-07-25] MEDS: Artificial Tears SOLN 15 ML BOTTLE BOTH EYES SCH ×6 (04:40→23:36)
[2019-07-25 04:42] LABS: Basophils % 0.2 %; Eosinophils # 0.1 K/mcL (0.0-0.6); Eosinophils % 1.9 %; Hematocrit 26.7 % (37.5-50.1); Hemoglobin 8.3 g/dL (12.9-16.9); Immature Granulocytes % 0.3 % (0-4); Lymphocytes # 0.9 K/mcL (0.6-4.6); Lymphocytes % 14.6 %; Mean Corpuscular HGB Conc 31.1 g/dL (31.6-35.5); Mean Corpuscular Hemoglobin 25.2 pg (28.0-33.3); Mean Corpuscular Volume 80.9 fL (83.0-100.0); Mean Platelet Volume 10.2 fL (9.4-12.4); Monocytes # 0.7 K/mcL (0.0-1.3); Monocytes % 11.3 %; Neutrophils # 4.2 K/mcL (1.6-8.9); Platelet Count 186 K/mcL (140-400); Red Cell Distribution Width 17.6 % (11.5-14.5); Segmented Neutrophils % 71.7 %; White Blood Count 5.8 K/mcL (4.3-11.1)
[2019-07-25 04:53] LABS: Heparin anti-factor XA UFH 0.39 IU/mL (0.30-0.70)
[2019-07-25 04:58] LABS: BUN/Creatinine Ratio 18 (6-26); Blood Urea Nitrogen 14 mg/dL (8-23); Carbon Dioxide 29 mEq/L (23-29); Chloride 101 mEq/L (98-107); Glucose 104 mg/dL (70-105); Magnesium 1.7 mg/dL (1.6-2.6); Osmolality,Calculated 283 (280-300); Potassium 3.5 mEq/L (3.5-5.1); Sodium 136 mEq/L (136-145); eGFR For African Americans > 60 (> 60); eGFR For Non-African Americans > 60 (> 60)
[2019-07-25 05:19] LABS: Activated Partial Thrombo Time 49.7 Seconds (26.0-36.0)
[2019-07-25] MEDS: Heparin 25,000 UNIT/250 ML D5W 25,000 UNIT/250 ML IV.SOLN IVC SCH ×2 (05:21→23:36)
[2019-07-25] MEDS: *HR* Heparin 5,000 UNIT/ML VIAL IVP PRN ×2 (05:27→12:44)
[2019-07-25] MEDS: Chlorhexidine Rinse 15 ML MOUTHWASH MM SCH ×2 (09:17→19:58)
[2019-07-25] MEDS: Pantoprazole 40 MG VIAL IVP SCH (09:17)
[2019-07-25] MEDS: *HR* Metoprolol 5 MG/5 ML VIAL IVP SCH ×3 (10:05→23:40)
[2019-07-25] MEDS ORDERED: levETIRAcetam 1,000 MG in 0.9 % Sodium Chloride 100 ML IVPB ONE (12:39)
[2019-07-26 03:51] LABS: Hematocrit 32.5 % (37.5-50.1); Hemoglobin 9.5 g/dL (12.9-16.9); Mean Corpuscular HGB Conc 29.2 g/dL (31.6-35.5); Mean Corpuscular Hemoglobin 24.4 pg (28.0-33.3); Mean Corpuscular Volume 83.5 fL (83.0-100.0); Mean Platelet Volume 10.2 fL (9.4-12.4); Platelet Count 194 K/mcL (140-400); Red Blood Count 3.89 M/mcL (4.19-5.50); Red Cell Distribution Width 17.6 % (11.5-14.5); White Blood Count 7.3 K/mcL (4.3-11.1)
[2019-07-26 04:09] LABS: BUN/Creatinine Ratio 16 (6-26); Blood Urea Nitrogen 11 mg/dL (8-23); Calcium 8.7 mg/dL (8.6-10.3); Carbon Dioxide 30 mEq/L (23-29); Chloride 100 mEq/L (98-107); Glucose 101 mg/dL (70-105); Osmolality,Calculated 284 (280-300); Potassium 3.8 mEq/L (3.5-5.1); Sodium 137 mEq/L (136-145); eGFR For African Americans > 60 (> 60); eGFR For Non-African Americans > 60 (> 60)
[2019-07-26] MEDS: Artificial Tears SOLN 15 ML BOTTLE BOTH EYES SCH ×2 (04:26→07:40)
[2019-07-26] MEDS: *HR* Heparin 5,000 UNIT/ML VIAL IVP PRN (04:52)
[2019-07-26] MEDS: *HR* Metoprolol 5 MG/5 ML VIAL IVP SCH ×2 (05:38→11:39)
[2019-07-26] MEDS: Chlorhexidine Rinse 15 ML MOUTHWASH MM SCH (08:44)
[2019-07-26] MEDS: Pantoprazole 40 MG VIAL IVP SCH (08:45)
[2019-07-26] MEDS ORDERED: *HR* Digoxin 0.5 MG/2 ML AMPUL IVP SCH (09:00)
[2019-07-26] MEDS ORDERED: Apixaban 2.5 MG TABLET PO SCH (13:30)
[2019-07-26] MEDS: Metoprolol 100 MG TABLET PO SCH (20:59)
[2019-07-26] MEDS: Budesonide/Formoterol 80/4.5 1 PUFF INH IH SCH (22:00)
[2019-07-26] MEDS: Acyclovir 500 MG in D5% in Water 100 ML IVPB SCH (23:33)
[2019-07-27 03:52] LABS: INR 1.2; Prothrombin Time 13.8 Seconds (9.4-12.1)
[2019-07-27 03:55] LABS: Activated Partial Thrombo Time 29.4 Seconds (26.0-36.0)
[2019-07-27 03:56] LABS: Hematocrit 29.7 % (37.5-50.1); Hemoglobin 8.7 g/dL (12.9-16.9); Mean Corpuscular HGB Conc 29.3 g/dL (31.6-35.5); Mean Corpuscular Hemoglobin 24.9 pg (28.0-33.3); Mean Corpuscular Volume 85.1 fL (83.0-100.0); Mean Platelet Volume 10.3 fL (9.4-12.4); Platelet Count 183 K/mcL (140-400); Red Blood Count 3.49 M/mcL (4.19-5.50); Red Cell Distribution Width 17.2 % (11.5-14.5); White Blood Count 7.3 K/mcL (4.3-11.1)
[2019-07-27 04:09] LABS: BUN/Creatinine Ratio 20 (6-26); Blood Urea Nitrogen 12 mg/dL (8-23); Calcium 8.5 mg/dL (8.6-10.3); Carbon Dioxide 34 mEq/L (23-29); Chloride 102 mEq/L (98-107); Glucose 106 mg/dL (70-105); Osmolality,Calculated 286 (280-300); Potassium 3.9 mEq/L (3.5-5.1); Sodium 138 mEq/L (136-145); eGFR For African Americans > 60 (> 60); eGFR For Non-African Americans > 60 (> 60)
[2019-07-27] MEDS: Acyclovir 500 MG in D5% in Water 100 ML IVPB SCH (07:44)
[2019-07-27] MEDS: Metoprolol 100 MG TABLET PO SCH ×2 (07:53→19:37)
[2019-07-27] MEDS ORDERED: *HR* Digoxin 0.125 MG TABLET PO SCH (09:00)
[2019-07-27] MEDS ORDERED: Finasteride 5 MG TABLET PO SCH (09:00)
[2019-07-27] MEDS: Budesonide/Formoterol 80/4.5 1 PUFF INH IH SCH ×2 (09:40→21:56)
[2019-07-27] MEDS ORDERED: 0.9 % Sodium Chloride 1,000 ML IVC ONE (10:34)
[2019-07-27] MEDS ORDERED: Sennosides 8.6 MG TABLET PO SCH (10:45)
[2019-07-27 11:24] LABS: Glucose,CSF 71 mg/dL (40-70); Total Protein,CSF 43 mg/dL (15-45)
[2019-07-27 11:40] LABS: Red Blood Cell,CSF < 2000 RBC/mcL
[2019-07-27 11:45] LABS: Appearance,CSF Clear (Clear)
[2019-07-27] MEDS ORDERED: Gadolinium Contrast Agent (WT Based) IV PRN ×2 (11:52→13:09)
[2019-07-27] MEDS ORDERED: Naloxone 0.4 MG/ML INJ IVP PRN (13:09)
[2019-07-27] MEDS ORDERED: *HR* Heparin 5,000 UNIT/ML VIAL SQ SCH (13:47)
[2019-07-27] MEDS: Ipratropium/Albuterol Neb 3 ML IH SCH ×2 (15:56→21:55)
[2019-07-27] MEDS: *HR* Heparin 5,000 UNIT/ML VIAL SQ SCH (17:07)
[2019-07-27] MEDS: Sucralfate 1 GM TABLET PO SCH ×2 (17:07→19:37)
[2019-07-27] MEDS ORDERED: Haloperidol Lactate 5 MG/ML VIAL IVP ONE (19:22)
[2019-07-28 04:06] LABS: Hematocrit 28.7 % (37.5-50.1); Hemoglobin 8.6 g/dL (12.9-16.9); Mean Corpuscular Hemoglobin 24.8 pg (28.0-33.3); Mean Corpuscular Volume 82.7 fL (83.0-100.0); Mean Platelet Volume 9.8 fL (9.4-12.4); Platelet Count 204 K/mcL (140-400); Red Blood Count 3.47 M/mcL (4.19-5.50); Red Cell Distribution Width 17.5 % (11.5-14.5); White Blood Count 6.7 K/mcL (4.3-11.1)
[2019-07-28] MEDS: Ipratropium/Albuterol Neb 3 ML IH SCH ×6 (04:20→23:37)
[2019-07-28 04:30] LABS: BUN/Creatinine Ratio 25 (6-26); Blood Urea Nitrogen 13 mg/dL (8-23); Calcium 8.3 mg/dL (8.6-10.3); Carbon Dioxide 30 mEq/L (23-29); Chloride 102 mEq/L (98-107); Glucose 104 mg/dL (70-105); Osmolality,Calculated 286 (280-300); Potassium 3.7 mEq/L (3.5-5.1); Sodium 138 mEq/L (136-145); eGFR For African Americans > 60 (> 60); eGFR For Non-African Americans > 60 (> 60)
[2019-07-28] MEDS: *HR* Heparin 5,000 UNIT/ML VIAL SQ SCH (05:09)
[2019-07-28] MEDS ORDERED: *HR* Metoprolol 5 MG/5 ML VIAL IVP ONE (06:27)
[2019-07-28] MEDS: Finasteride 5 MG TABLET PO SCH (08:45)
[2019-07-28] MEDS: *HR* Digoxin 0.125 MG TABLET PO SCH (08:45)
[2019-07-28] MEDS: Metoprolol 100 MG TABLET PO SCH ×2 (08:45→21:33)
[2019-07-28] MEDS: Sucralfate 1 GM TABLET PO SCH ×3 (08:46→21:32)
[2019-07-28] MEDS: Sennosides 8.6 MG TABLET PO SCH (08:46)
[2019-07-28] MEDS ORDERED: Albuterol 2.5 MG/3 ML NEBULIZER IH PRN (09:24)
[2019-07-28] MEDS: Budesonide/Formoterol 80/4.5 1 PUFF INH IH SCH ×2 (10:23→20:32)
[2019-07-28] MEDS: predniSONE 20 MG TABLET PO SCH (11:21)
[2019-07-28] MEDS: Apixaban 2.5 MG TABLET PO SCH ×2 (15:54→21:32)
[2019-07-28] MEDS: Mirtazapine 15 MG TABLET PO SCH (21:33)
[2019-07-28] MEDS: [UNRECOGNIZED DRUG - OTHER] PO SCH (22:15)
[2019-07-29] MEDS: Ipratropium/Albuterol Neb 3 ML IH SCH ×6 (04:23→23:48)
[2019-07-29 07:28] LABS: Hemoglobin 7.9 g/dL (12.9-16.9); Mean Corpuscular HGB Conc 29.3 g/dL (31.6-35.5); Mean Corpuscular Hemoglobin 24.2 pg (28.0-33.3); Mean Corpuscular Volume 82.6 fL (83.0-100.0); Mean Platelet Volume 10.4 fL (9.4-12.4); Platelet Count 208 K/mcL (140-400); Red Blood Count 3.27 M/mcL (4.19-5.50); Red Cell Distribution Width 17.8 % (11.5-14.5); White Blood Count 5.3 K/mcL (4.3-11.1)
[2019-07-29] MEDS: Budesonide/Formoterol 80/4.5 1 PUFF INH IH SCH ×2 (07:39→20:37)
[2019-07-29 07:42] LABS: BUN/Creatinine Ratio 28 (6-26); Blood Urea Nitrogen 18 mg/dL (8-23); Calcium 8.2 mg/dL (8.6-10.3); Carbon Dioxide 34 mEq/L (23-29); Chloride 103 mEq/L (98-107); Glucose 88 mg/dL (70-105); Osmolality,Calculated 293 (280-300); Potassium 3.6 mEq/L (3.5-5.1); Sodium 141 mEq/L (136-145); eGFR For African Americans > 60 (> 60); eGFR For Non-African Americans > 60 (> 60)
[2019-07-29 09:24] LABS: Bilirubin,Urine Negative (Negative); Blood,Urine Large (Negative); Clarity,Urine Cloudy (Clear); Color,Urine Dark Yellow (Yellow); Glucose,Urine (UA) Normal (Normal); Ketones,Urine Trace mg/dL (Negative); Leukocyte Esterase,Urine Small (Negative); Nitrite,Urine Negative (Negative); PH,Urine 5.5 pH Units (5.0-8.0); Protein,Urine 100 mg/dL (Neg-Trace); Specific Gravity,Urine 1.028 (1.010-1.025); Urobilinogen,Urine Normal (Normal)
[2019-07-29 09:27] LABS: Bacteria,Urine None Seen per hpf (None-Few); Hyaline Casts,Urine None Seen per lpf (None-Few); RBC,Urine TNTC per hpf (0-3); Squamous Epithelial Cell,Urine Many per lpf (None-Few)
[2019-07-29] MEDS: levETIRAcetam 250 MG TABLET PO SCH ×2 (09:45→17:30)
[2019-07-29] MEDS: Apixaban 2.5 MG TABLET PO SCH ×2 (09:45→21:00)
[2019-07-29] MEDS: *HR* Digoxin 0.125 MG TABLET PO SCH (09:45)
[2019-07-29] MEDS: Sucralfate 1 GM TABLET PO SCH ×3 (09:45→20:59)
[2019-07-29] MEDS: [UNRECOGNIZED DRUG - OTHER] PO SCH ×2 (09:46→21:00)
[2019-07-29] MEDS: ENCORAFENIB 75 MG PO SCH (09:46)
[2019-07-29] MEDS: Metoprolol 100 MG TABLET PO SCH ×2 (09:46→20:59)
[2019-07-29] MEDS: predniSONE 20 MG TABLET PO SCH (09:46)
[2019-07-29] MEDS: Sennosides 8.6 MG TABLET PO SCH (09:46)
[2019-07-29] MEDS: Finasteride 5 MG TABLET PO SCH (09:46)
[2019-07-29] MEDS: Mirtazapine 15 MG TABLET PO SCH (21:00)
[2019-07-30] MEDS: Ipratropium/Albuterol Neb 3 ML IH SCH ×6 (03:41→23:48)
[2019-07-30] MEDS: levETIRAcetam 250 MG TABLET PO SCH ×2 (05:45→17:51)
[2019-07-30 07:10] LABS: Hematocrit 28.7 % (37.5-50.1); Hemoglobin 8.5 g/dL (12.9-16.9); Mean Corpuscular HGB Conc 29.6 g/dL (31.6-35.5); Mean Corpuscular Hemoglobin 24.4 pg (28.0-33.3); Mean Corpuscular Volume 82.5 fL (83.0-100.0); Platelet Count 223 K/mcL (140-400); Red Blood Count 3.48 M/mcL (4.19-5.50); Red Cell Distribution Width 17.9 % (11.5-14.5); White Blood Count 6.1 K/mcL (4.3-11.1)
[2019-07-30 07:30] LABS: BUN/Creatinine Ratio 30 (6-26); Blood Urea Nitrogen 20 mg/dL (8-23); Calcium 8.4 mg/dL (8.6-10.3); Carbon Dioxide 34 mEq/L (23-29); Chloride 100 mEq/L (98-107); Glucose 117 mg/dL (70-105); Osmolality,Calculated 298 (280-300); Potassium 3.5 mEq/L (3.5-5.1); Sodium 142 mEq/L (136-145); eGFR For African Americans > 60 (> 60); eGFR For Non-African Americans > 60 (> 60)
[2019-07-30] MEDS: Budesonide/Formoterol 80/4.5 1 PUFF INH IH SCH ×2 (07:45→19:53)
[2019-07-30] MEDS: Apixaban 2.5 MG TABLET PO SCH ×2 (09:38→19:51)
[2019-07-30] MEDS: Sucralfate 1 GM TABLET PO SCH ×3 (09:38→19:51)
[2019-07-30] MEDS: *HR* Digoxin 0.125 MG TABLET PO SCH (09:38)
[2019-07-30] MEDS: Metoprolol 100 MG TABLET PO SCH ×2 (09:39→19:52)
[2019-07-30] MEDS: Finasteride 5 MG TABLET PO SCH (09:39)
[2019-07-30] MEDS: [UNRECOGNIZED DRUG - OTHER] PO SCH ×2 (09:39→19:52)
[2019-07-30] MEDS: predniSONE 20 MG TABLET PO SCH (09:39)
[2019-07-30] MEDS: Sennosides 8.6 MG TABLET PO SCH (09:39)
[2019-07-30] MEDS ORDERED: ENCORAFENIB 75 MG PO SCH (15:00)
[2019-07-30 17:54] LABS: Enterovirus RNA Qual (PCR) NOT DETECTED
[2019-07-30] MEDS: dexAMETHasone 4 MG TABLET PO SCH (19:51)
[2019-07-30] MEDS: Mirtazapine 15 MG TABLET PO SCH (19:52)
[2019-07-31] MEDS: Ipratropium/Albuterol Neb 3 ML IH SCH ×3 (03:09→11:47)
[2019-07-31 05:48] LABS: Hematocrit 28.1 % (37.5-50.1); Hemoglobin 8.5 g/dL (12.9-16.9); Mean Corpuscular HGB Conc 30.2 g/dL (31.6-35.5); Mean Corpuscular Hemoglobin 25.1 pg (28.0-33.3); Mean Corpuscular Volume 82.9 fL (83.0-100.0); Mean Platelet Volume 10.2 fL (9.4-12.4); Platelet Count 243 K/mcL (140-400); Red Blood Count 3.39 M/mcL (4.19-5.50); White Blood Count 6.6 K/mcL (4.3-11.1)
[2019-07-31] MEDS: levETIRAcetam 250 MG TABLET PO SCH (05:53)
[2019-07-31 06:06] LABS: BUN/Creatinine Ratio 30 (6-26); Blood Urea Nitrogen 22 mg/dL (8-23); Calcium 8.7 mg/dL (8.6-10.3); Carbon Dioxide 32 mEq/L (23-29); Chloride 101 mEq/L (98-107); Glucose 156 mg/dL (70-105); Osmolality,Calculated 295 (280-300); Sodium 139 mEq/L (136-145); eGFR For African Americans > 60 (> 60); eGFR For Non-African Americans > 60 (> 60)
[2019-07-31 06:08] LABS: % Iron Saturation 5 % (20-55); Iron 15 mcg/dL (65-175); Transferrin 208 mg/dL (203-362)
[2019-07-31 06:26] LABS: Ferritin 28 ng/mL (20-250)
[2019-07-31] MEDS: Budesonide/Formoterol 80/4.5 1 PUFF INH IH SCH (07:54)
[2019-07-31] MEDS: Apixaban 2.5 MG TABLET PO SCH (08:04)
[2019-07-31] MEDS: Metoprolol 100 MG TABLET PO SCH (08:04)
[2019-07-31] MEDS: *HR* Digoxin 0.125 MG TABLET PO SCH (08:04)
[2019-07-31] MEDS: Sennosides 8.6 MG TABLET PO SCH (08:05)
[2019-07-31] MEDS: dexAMETHasone 4 MG TABLET PO SCH (08:05)
[2019-07-31] MEDS: Finasteride 5 MG TABLET PO SCH (08:05)
[2019-07-31] MEDS: Sucralfate 1 GM TABLET PO SCH (08:05)
[2019-07-31] MEDS: [UNRECOGNIZED DRUG - OTHER] PO SCH (08:06)
[2019-07-31] MEDS ORDERED: Iron Sucrose Complex 400 MG in 0.9 % Sodium Chloride 250 ML IVPB ONE (08:43)
[2019-07-31] MEDS: ENCORAFENIB 75 MG PO SCH (09:43)
[2019-07-31 11:30] VITALS: BP 137/92
[2019-08-01 11:10] LABS: HSV 1 Glycoprotein G IgG CSF 0.75 IV (<=0.89); HSV 2 Glycoprotein G IgG CSF 0.02 IV (<=0.89)
== END 2019-07-31 14:05 | disposition home health service (06) | DRG 208 ==
LOC: EDSTATUS 07-24 02:55 → ICNU 07-24 03:51 → SUATTDRO 07-24 03:51 → 3BNU 07-27 15:17
PROVIDERS: ADMIT Internal Medicine; ATTEND Internal Medicine

== ENCOUNTER 2019-09-14 12:03 | Observation (INO) ==
[2019-09-14] MEDS ORDERED: Isovue-370 500 ML BOTTLE IVP ONE (12:08)
[2019-09-14 13:27] LABS: Basophils % 0.5 %; Eosinophils # 0.2 K/mcL (0.0-0.6); Eosinophils % 3.4 %; Hemoglobin 11.1 g/dL (12.9-16.9); Immature Granulocytes % 0.2 % (0-4); Lymphocytes # 1.1 K/mcL (0.6-4.6); Lymphocytes % 25.8 %; Mean Corpuscular Hemoglobin 25.6 pg (28.0-33.3); Mean Corpuscular Volume 85.5 fL (83.0-100.0); Mean Platelet Volume 10.1 fL (9.4-12.4); Monocytes # 0.5 K/mcL (0.0-1.3); Monocytes % 10.6 %; Neutrophils # 2.6 K/mcL (1.6-8.9); Platelet Count 173 K/mcL (140-400); Red Blood Count 4.33 M/mcL (4.19-5.50); Red Cell Distribution Width 21.7 % (11.5-14.5); Segmented Neutrophils % 59.5 %; White Blood Count 4.4 K/mcL (4.3-11.1)
[2019-09-14 13:35] LABS: INR 1.2; Prothrombin Time 13.5 Seconds (9.4-12.1)
[2019-09-14 13:38] LABS: Activated Partial Thrombo Time 32.4 Seconds (26.0-36.0)
[2019-09-14 13:59] LABS: Alanine Aminotransferase 9 Units/L (7-52); Albumin 3.5 g/dL (3.5-5.7); Albumin/Globulin Ratio 1.2 (1.1-2.2); Alkaline Phosphatase 57 Units/L (34-104); Aspartate Amino Transferase 12 Units/L (13-39); BUN/Creatinine Ratio 12 (6-26); Bilirubin,Direct 0.1 mg/dL (0.0-0.2); Bilirubin,Indirect 0.3 mg/dL (0.0-1.0); Bilirubin,Total 0.4 mg/dL (0.3-1.0); Blood Urea Nitrogen 10 mg/dL (8-23); Calcium 8.5 mg/dL (8.6-10.3); Carbon Dioxide 29 mEq/L (23-29); Chloride 103 mEq/L (98-107); Globulin 2.9 g/dL (2.4-3.5); Glucose 106 mg/dL (70-105); Lipase 10 Units/L (11-82); Magnesium 1.9 mg/dL (1.6-2.6); Osmolality,Calculated 285 (280-300); Phosphorous 3.5 mg/dL (2.7-4.5); Potassium 4.3 mEq/L (3.5-5.1); Sodium 138 mEq/L (136-145); Total Protein 6.4 g/dL (6.4-8.9); Troponin I < 0.03 ng/mL (< 0.04); eGFR For African Americans > 60 (> 60); eGFR For Non-African Americans > 60 (> 60)
[2019-09-14] MEDS ORDERED: Naloxone 0.4 MG/ML INJ IVP PRN (15:14)
[2019-09-14] MEDS: Ipratropium/Albuterol Neb 3 ML IH SCH ×2 (15:38→22:01)
[2019-09-14] MEDS: dexAMETHasone 4 MG TABLET PO SCH (17:01)
[2019-09-14] MEDS: levETIRAcetam 250 MG TABLET PO SCH (17:01)
[2019-09-14] MEDS ORDERED: Mirtazapine 15 MG TABLET PO SCH (21:00)
[2019-09-14] MEDS: Apixaban 2.5 MG TABLET PO SCH (21:04)
[2019-09-14] MEDS: Sucralfate 1 GM TABLET PO SCH (21:04)
[2019-09-14] MEDS: Metoprolol 100 MG TABLET PO SCH (21:05)
[2019-09-14] MEDS: Budesonide/Formoterol 80/4.5 1 PUFF INH IH SCH (22:00)
[2019-09-15] MEDS: BINIMETINIB 45 MG PO SCH ×3 (00:42→10:33)
[2019-09-15] MEDS: Ipratropium/Albuterol Neb 3 ML IH SCH ×2 (03:50→09:26)
[2019-09-15] MEDS: levETIRAcetam 250 MG TABLET PO SCH (05:31)
[2019-09-15] MEDS: dexAMETHasone 4 MG TABLET PO SCH (08:37)
[2019-09-15] MEDS: Metoprolol 100 MG TABLET PO SCH (08:37)
[2019-09-15] MEDS: Sucralfate 1 GM TABLET PO SCH (08:37)
[2019-09-15] MEDS: Apixaban 2.5 MG TABLET PO SCH (08:37)
[2019-09-15] MEDS: ENCORAFENIB 450 MG PO SCH ×2 (08:48→10:33)
[2019-09-15] MEDS ORDERED: *HR* Digoxin 0.125 MG TABLET PO SCH (09:00)
[2019-09-15] MEDS ORDERED: Finasteride 5 MG TABLET PO SCH (09:00)
[2019-09-15] MEDS: Budesonide/Formoterol 80/4.5 1 PUFF INH IH SCH (09:26)
[2019-09-15 10:53] VITALS: BP 109/64
== END 2019-09-15 12:49 | disposition home or self-care (01) ==
LOC: 3ANU 12:03 → EMEROOARM 12:03 → SUATTDRO 15:14 → 3BNU 15:39
PROVIDERS: ADMIT Internal Medicine; ATTEND Internal Medicine

== ENCOUNTER 2019-12-13 10:00 | Inpatient (IN) ==
[2019-12-13] MEDS ORDERED: Pantoprazole 40 MG VIAL IVP ONE (10:06)
[2019-12-13 10:50] LABS: INR 1.4; Prothrombin Time 15.5 Seconds (9.4-12.1)
[2019-12-13 10:53] LABS: Activated Partial Thrombo Time 27.9 Seconds (26.0-36.0)
[2019-12-13 11:07] LABS: Alanine Aminotransferase 6 Units/L (7-52); Albumin 2.8 g/dL (3.5-5.7); Albumin/Globulin Ratio 1.2 (1.1-2.2); Alkaline Phosphatase 56 Units/L (34-104); Aspartate Amino Transferase 10 Units/L (13-39); BUN/Creatinine Ratio 30 (6-26); Bilirubin,Total 0.2 mg/dL (0.3-1.0); Blood Urea Nitrogen 30 mg/dL (8-23); Calcium 8.6 mg/dL (8.6-10.3); Carbon Dioxide 26 mEq/L (23-29); Chloride 110 mEq/L (98-107); Globulin 2.4 g/dL (2.4-3.5); Glucose 108 mg/dL (70-105); Osmolality,Calculated 303 (280-300); Potassium 4.5 mEq/L (3.5-5.1); Sodium 143 mEq/L (136-145); Total Protein 5.2 g/dL (6.4-8.9); eGFR For African Americans > 60 (> 60); eGFR For Non-African Americans > 60 (> 60)
[2019-12-13] MEDS ORDERED: Ondansetron 4 MG/2 ML VIAL IVP PRN (11:19)
[2019-12-13] MEDS ORDERED: Naloxone 0.4 MG/ML INJ IVP PRN (11:19)
[2019-12-13] MEDS ORDERED: 0.9 % Sodium Chloride 250 ML ONE ×2 (11:39→17:19)
[2019-12-13] MEDS ORDERED: Ipratropium/Albuterol Neb 3 ML IH PRN (12:35)
[2019-12-13] MEDS: Iron Sucrose Complex 200 MG in 0.9 % Sodium Chloride 100 ML IVPB SCH (12:48)
[2019-12-13] MEDS ORDERED: ENCORAFENIB 450 MG PO SCH (14:00)
[2019-12-13] MEDS: ENCORAFENIB 450 MG PO SCH (15:03)
[2019-12-13 16:11] LABS: Hematocrit 19.2 % (37.5-50.1)
[2019-12-13 16:14] LABS: Hemoglobin 5.9 g/dL (12.9-16.9)
[2019-12-13] MEDS: Pantoprazole 40 MG VIAL IVP SCH (17:29)
[2019-12-13] MEDS: levETIRAcetam 250 MG TABLET PO SCH (17:29)
[2019-12-13] MEDS: BINIMETINIB 45 MG PO SCH (19:09)
[2019-12-13] MEDS: Mirtazapine 15 MG TABLET PO SCH (19:44)
[2019-12-13 20:49] LABS: Hematocrit 21.1 % (37.5-50.1); Hemoglobin 6.5 g/dL (12.9-16.9)
[2019-12-13] MEDS ORDERED: Furosemide 20 MG/2 ML VIAL IVP ONE (21:14)
[2019-12-13] MEDS: Budesonide/Formoterol 80/4.5 1 PUFF INH IH SCH (22:23)
[2019-12-14] MEDS ORDERED: 0.9 % Sodium Chloride 250 ML ONE (00:03)
[2019-12-14 05:16] LABS: Basophils % 0.4 %; Eosinophils # 0.1 K/mcL (0.0-0.6); Eosinophils % 1.8 %; Hematocrit 25.2 % (37.5-50.1); Lymphocytes # 0.9 K/mcL (0.6-4.6); Lymphocytes % 17.8 %; Mean Corpuscular HGB Conc 31.7 g/dL (31.6-35.5); Mean Corpuscular Hemoglobin 30.2 pg (28.0-33.3); Mean Corpuscular Volume 95.1 fL (83.0-100.0); Mean Platelet Volume 9.5 fL (9.4-12.4); Monocytes # 0.5 K/mcL (0.0-1.3); Monocytes % 10.1 %; Neutrophils # 3.4 K/mcL (1.6-8.9); Nucleated Red Blood Cells 0.4 /100 WBC (0); Platelet Count 244 K/mcL (140-400); Red Blood Count 2.65 M/mcL (4.19-5.50); Segmented Neutrophils % 68.9 %; White Blood Count 4.9 K/mcL (4.3-11.1)
[2019-12-14 05:35] LABS: BUN/Creatinine Ratio 27 (6-26); Blood Urea Nitrogen 22 mg/dL (8-23); Calcium 8.1 mg/dL (8.6-10.3); Carbon Dioxide 27 mEq/L (23-29); Chloride 108 mEq/L (98-107); Glucose 103 mg/dL (70-105); Magnesium 1.7 mg/dL (1.6-2.6); Osmolality,Calculated 296 (280-300); Potassium 3.6 mEq/L (3.5-5.1); Sodium 141 mEq/L (136-145); eGFR For African Americans > 60 (> 60); eGFR For Non-African Americans > 60 (> 60)
[2019-12-14] MEDS: levETIRAcetam 250 MG TABLET PO SCH ×2 (05:52→16:50)
[2019-12-14] MEDS: Pantoprazole 40 MG VIAL IVP SCH ×2 (05:53→16:51)
[2019-12-14] MEDS: BINIMETINIB 45 MG PO SCH ×2 (05:53→18:36)
[2019-12-14] MEDS: Finasteride 5 MG TABLET PO SCH (07:59)
[2019-12-14] MEDS: Iron Sucrose Complex 200 MG in 0.9 % Sodium Chloride 100 ML IVPB SCH (08:00)
[2019-12-14] MEDS: *HR* Digoxin 0.125 MG TABLET PO SCH (08:00)
[2019-12-14 10:34] LABS: Hematocrit 25.1 % (37.5-50.1); Hemoglobin 7.8 g/dL (12.9-16.9)
[2019-12-14] MEDS: Budesonide/Formoterol 80/4.5 1 PUFF INH IH SCH ×2 (10:51→20:07)
[2019-12-14 12:39] LABS: Hematocrit 25.1 % (37.5-50.1); Hemoglobin 7.9 g/dL (12.9-16.9)
[2019-12-14] MEDS: ENCORAFENIB 450 MG PO SCH (16:49)
[2019-12-14] MEDS: polyethylene glycoL 3350 17 GM POWD.PACK PO PRN (16:56)
[2019-12-14] MEDS: Mirtazapine 15 MG TABLET PO SCH (19:52)
[2019-12-14 19:58] LABS: Adenovirus Not Detected (Not Detect); Coronavirus 229E Not Detected (Not Detect); Coronavirus HKU1 Not Detected (Not Detect); Coronavirus NL63 Not Detected (Not Detect); Coronavirus OC43 Not Detected (Not Detect); Human Metapneumovirus Not Detected (Not Detect); Human Rhinovirus/Enterovirus Not Detected (Not Detect); SARS-CoV-2 Not Detected (Not Detect)
[2019-12-14 19:59] LABS: Bordetella Pertussis Not Detected (Not Detect); Chlamydophila pneumoniae Not Detected (Not Detect); Influenza A Subtype 2009 H1 Not Detected (Not Detect); Influenza B Not Detected (Not Detect); Mycoplasma pneumoniae Not Detected (Not Detect); Parainfluenza Virus 1 Not Detected (Not Detect); Parainfluenza Virus 2 Not Detected (Not Detect); Parainfluenza Virus 3 Not Detected (Not Detect); Parainfluenza Virus 4 Not Detected (Not Detect); Respiratory Syncytial Virus Not Detected (Not Detect)
[2019-12-15] MEDS: Pantoprazole 40 MG VIAL IVP SCH (05:34)
[2019-12-15] MEDS: levETIRAcetam 250 MG TABLET PO SCH ×2 (05:34→16:41)
[2019-12-15 07:30] LABS: Basophils % 0.4 %; Eosinophils # 0.2 K/mcL (0.0-0.6); Eosinophils % 3.5 %; Hematocrit 25.2 % (37.5-50.1); Immature Granulocytes % 0.6 % (0-4); Lymphocytes # 0.7 K/mcL (0.6-4.6); Lymphocytes % 15.2 %; Mean Corpuscular HGB Conc 31.7 g/dL (31.6-35.5); Mean Corpuscular Hemoglobin 30.5 pg (28.0-33.3); Mean Corpuscular Volume 96.2 fL (83.0-100.0); Mean Platelet Volume 9.3 fL (9.4-12.4); Monocytes # 0.6 K/mcL (0.0-1.3); Monocytes % 11.5 %; Neutrophils # 3.3 K/mcL (1.6-8.9); Platelet Count 238 K/mcL (140-400); Red Blood Count 2.62 M/mcL (4.19-5.50); Red Cell Distribution Width 18.7 % (11.5-14.5); Segmented Neutrophils % 68.8 %; White Blood Count 4.8 K/mcL (4.3-11.1)
[2019-12-15 07:43] LABS: BUN/Creatinine Ratio 24 (6-26); Blood Urea Nitrogen 17 mg/dL (8-23); Carbon Dioxide 27 mEq/L (23-29); Chloride 109 mEq/L (98-107); Glucose 102 mg/dL (70-105); Magnesium 1.9 mg/dL (1.6-2.6); Osmolality,Calculated 294 (280-300); Phosphorous 4.4 mg/dL (2.7-4.5); Potassium 3.8 mEq/L (3.5-5.1); Sodium 141 mEq/L (136-145); eGFR For African Americans > 60 (> 60); eGFR For Non-African Americans > 60 (> 60)
[2019-12-15] MEDS ORDERED: *HR* Propofol 200 MG/20 ML VIAL IVP ONE (07:44)
[2019-12-15] MEDS ORDERED: Lidocaine -MPF 2% 2 ML VIAL ONE (07:44)
[2019-12-15] MEDS: *HR* Digoxin 0.125 MG TABLET PO SCH (10:00)
[2019-12-15] MEDS: Finasteride 5 MG TABLET PO SCH (10:01)
[2019-12-15] MEDS: polyethylene glycoL 3350 17 GM POWD.PACK PO PRN (10:01)
[2019-12-15] MEDS: Budesonide/Formoterol 80/4.5 1 PUFF INH IH SCH ×2 (10:09→22:19)
[2019-12-15] MEDS: Iron Sucrose Complex 200 MG in 0.9 % Sodium Chloride 100 ML IVPB SCH (10:10)
[2019-12-15] MEDS: Mirtazapine 15 MG TABLET PO SCH (21:12)
[2019-12-16 01:46] LABS: Basophils % 0.3 %; Eosinophils # 0.1 K/mcL (0.0-0.6); Eosinophils % 1.5 %; Hematocrit 26.5 % (37.5-50.1); Immature Granulocytes % 0.3 % (0-4); Lymphocytes # 0.6 K/mcL (0.6-4.6); Lymphocytes % 9.3 %; Mean Corpuscular HGB Conc 30.2 g/dL (31.6-35.5); Mean Corpuscular Hemoglobin 29.3 pg (28.0-33.3); Mean Corpuscular Volume 97.1 fL (83.0-100.0); Mean Platelet Volume 9.4 fL (9.4-12.4); Monocytes # 0.6 K/mcL (0.0-1.3); Monocytes % 9.3 %; Neutrophils # 5.5 K/mcL (1.6-8.9); Nucleated Red Blood Cells 0.3 /100 WBC (0); Platelet Count 248 K/mcL (140-400); Red Blood Count 2.73 M/mcL (4.19-5.50); Red Cell Distribution Width 18.6 % (11.5-14.5); Segmented Neutrophils % 79.3 %; White Blood Count 6.9 K/mcL (4.3-11.1)
[2019-12-16 01:59] LABS: BUN/Creatinine Ratio 17 (6-26); Blood Urea Nitrogen 13 mg/dL (8-23); Calcium 8.1 mg/dL (8.6-10.3); Carbon Dioxide 26 mEq/L (23-29); Chloride 108 mEq/L (98-107); Glucose 143 mg/dL (70-105); Magnesium 1.7 mg/dL (1.6-2.6); Osmolality,Calculated 291 (280-300); Phosphorous 3.2 mg/dL (2.7-4.5); Potassium 3.8 mEq/L (3.5-5.1); Sodium 139 mEq/L (136-145); eGFR For African Americans > 60 (> 60); eGFR For Non-African Americans > 60 (> 60)
[2019-12-16] MEDS: levETIRAcetam 250 MG TABLET PO SCH (06:15)
[2019-12-16 07:28] VITALS: BP 123/67
[2019-12-16] MEDS: *HR* Digoxin 0.125 MG TABLET PO SCH (08:24)
[2019-12-16] MEDS: Finasteride 5 MG TABLET PO SCH (08:24)
[2019-12-16] MEDS: Budesonide/Formoterol 80/4.5 1 PUFF INH IH SCH (09:29)
== END 2019-12-16 10:20 | disposition home or self-care (01) | DRG 378 ==
LOC: EMEROOARM 10:00 → 2ANU 10:00
PROVIDERS: ADMIT Internal Medicine; ATTEND Internal Medicine
PROC: ENDOEBX (2019-12-15 08:00)